=== PATIENT | male | born 1945 | race Caucasian/White ===

== ENCOUNTER 2017-05-20 14:23 | Inpatient (IN) | payer MEDICARE ==
[~2017-05-20] VITALS: Ht 162.6 cm; Wt 72.6 kg
[2017-05-20 14:28] VITALS: BP 142/74
--- NOTE | 2017-05-20 14:30 | NUR ---
PT AMBULATED TO BED 11.
--- NOTE | 2017-05-20 14:34 | NUR ---
72M BIB FAMILY C/O RT UPPER QUADRANT ABDOMINAL PAIN, THROBBING, RADIATES TO LEFT UPPER QUADRANT, 10/10 X TODAY; ABDOMEN SOFT, ROUND, NON-TENDER, ACTIVE BOWEL SOUNDS X 4 QUADRANTS; PT STATES NO N/V/D AT THIS TIME; PT AA&OX4, PERRLA, BL LUNG SOUNDS CLEAR, RR EVEN/UNLABORED, SKIN IS WARM/DRY/INTACT AT THIS TIME; STEADY GAIT; PT RESTING IN BED WITH HOB ELEVATED AND IN LOWEST POSITION; POSITIONED FOR COMFORT; ER MD MADE AWARE OF STATUS. WILL CONTINUE TO MONITOR.
[2017-05-20] MEDS ORDERED: ONDANSETRON 4 MG/2 ML VIAL IVP ONE (14:40)
[2017-05-20] MEDS ORDERED: NACL 0.9% 1,000 ML IV ONE (14:40)
[2017-05-20] MEDS ORDERED: HYDROmorphone 1 MG/ML AMP IVP ONE (14:40)
--- NOTE | 2017-05-20 14:47 | NUR ---
US AT BEDSIDE.
[2017-05-20 15:45] LABS: BASOPHILS # (AUTO) 0.1 K/uL (0.00-0.22); BASOPHILS % (AUTO) 1.7 % (0.0-2.0); EOSINOPHILS # (AUTO) 0.3 K/uL (0-0.4); EOSINOPHILS % (AUTO) 5.2 % (0.0-4.0); HEMATOCRIT 37.6 % (36-52); HEMOGLOBIN 12.1 g/dL (12.0-18.0); LYMPHOCYTES # (AUTO) 0.3 K/uL (2.0-11.5); LYMPHOCYTES % (AUTO) 6.2 % (20.5-51.1); MEAN CORPUSCULAR HEMOGLOBIN 29 pg (27-31); MEAN CORPUSCULAR HGB CONC 32 g/dL (33-37); MEAN CORPUSCULAR VOLUME 89 fL (80-94); MONOCYTES # (AUTO) 0.5 K/uL (0.8-1.0); MONOCYTES % (AUTO) 9.9 % (1.7-9.3); NEUTROPHILS # (AUTO) 4.1 K/uL (1.8-7.7); PLATELET COUNT (AUTO) 146 K/uL (140-450); RED BLOOD CELL COUNT(AUTO) 4.22 MIL/uL (4.20-6.10); RED CELL DISTRIBUTION WIDTH 12.2 % (11.6-13.7); WHITE BLOOD COUNT (AUTO) 5.3 K/uL (4.8-10.8)
[2017-05-20 15:48] LABS: APPEARANCE,URINE CLEAR (CLEAR); BILIRUBIN,URINE NEGATIVE (NEGATIVE); BLOOD, URINE NEGATIVE (NEGATIVE); COLOR,URINE YELLOW (YELLOW); LEUKOCYTE ESTERASE ,URINE NEGATIVE (NEGATIVE); NITRITE, URINE NEGATIVE (NEGATIVE); PH,URINE 7.5 (5.0-9.0); UGLUCOSE NEGATIVE (NEGATIVE)
[2017-05-20 16:01] LABS: ANION GAP 10.5 (8-16); ASPARTATE AMINOTRANSFERASE 32 U/L (15-37); CARBON DIOXIDE 28.2 mmol/L (21-32); CHLORIDE 109 mmol/L (98-107); GLUCOSE 111 mg/dL (74-106); LIPASE 126 U/L (73-393); POTASSIUM 3.7 mmol/L (3.5-5.1); SODIUM SERUM 144 mmol/L (136-145); TOTAL BILIRUBIN 0.3 mg/dL (0.0-1.0); UREA NITROGEN, BLOOD 14 mg/dL (7-18)
--- NOTE | 2017-05-20 16:10 | NUR ---
PT APPEARS TO BE RESTING COMFORTABLY IN BED; RR EVEN/UNLABORED; AT BEDSIDE; POSITIONED FOR COMFORT; WILL CONTINUE TO MONITOR.
[2017-05-20] MEDS ORDERED: ONDANSETRON 4 MG/2 ML VIAL IVP PRN (17:25)
[2017-05-20] MEDS ORDERED: ACETAMINOPHEN 325 MG TAB PO PRN (17:25)
--- NOTE | 2017-05-20 18:24 | NUR ---
CALLED TO GIVE REPORT; YARIEL SOTO WILL CALL BACK IN 5 MINUTES.
--- NOTE | 2017-05-20 18:37 | NUR ---
REPORT GIVEN TO MALU SALDIVAR; ASKED TO BRING PT DOWN TO FLOOR IN 5 MINUTES WHILE SHE OPENS THE PT'S BED.
--- NOTE | 2017-05-20 18:42 | NUR ---
Patient will be admitted to care of DR. ELDRIDGE. Admited to MED-SURG. Will go to room 106A. Belongings list completed. Report to YARIEL TORIBIO.
[2017-05-20 18:50] VITALS: BP 161/70
--- NOTE | 2017-05-20 18:50 | NUR ---
RECEIVED PT FROM ER, PER DAI, ASSISTED BY ER STAFF. PT AWAKE. ALERT ORIENTEDX4. NO SOB NOTED. DENIES ANY PAIN OR DISCOMFORT AT THIS TIME. PT AMBULATORY. SAFETY PRECAUTION IN PLACE. CALL LIGHT WITHIN REACH. WILL ENDORSE TO NEXT SHIFT, PT ON STABLE CONDITION, FOR CONTINUITY OF CARE.
[2017-05-20 19:15] VITALS: BP 157/91
--- NOTE | 2017-05-20 19:15 | NUR ---
ADMITTED A 72M FROM ER. REPORT GIVEN BY EFREN . AWAKE. ALERT AND ORIENTED X4, SPEAKS BOTH MALAGASY AND SOME MOHAWK. ON MED SURG. ADMITTED DUE TO RUQ ABDOMINAL PAIN THAT STARTS EARLY TODAY. DENIES ANY PAIN AT THIS TIME. SKIN ASSESSMENT DONE . SKIN INTACT. WITH IV ACCESS ON THE LT AC#20. NPO STATUS . PT VERBALIZED UNDERSTANDING. AMBULATORY . ORIENTED TO HOSPITAL ROUTINES. CALL LIGHT AND URINAL PLACED WITHIN EASY REACH. INSTRUCTED TO CALL IF NEED ANY ASSISTANCE. WILL CONTINUE TO MONITOR.
[2017-05-20] MEDS: DEXT 5% /NACL 0.9% 1,000 ML IV SCH (19:17)
--- NOTE | 2017-05-20 20:30 | NUR ---
FAMILY TO BRING TOMORROW MEDICATIONS THAT PT IS TAKING AT HOME.
[2017-05-20] MEDS ORDERED: cefTRIAXone 1,000 MG VIAL ONE (20:44)
--- NOTE | 2017-05-20 22:50 | NUR ---
DR. HALEY CALLED REGARDING CONSULT FOR SURGERY. PT AGREED TO HAVE THE SURGERY TOMORROW AT 0730 . PT'S ALSO AWARE PT ABLE TO TALKED TO HER ABOUT THE PLAN SURGERY .
[2017-05-20] MEDS ORDERED: BICA50TA2 PO (23:30)
[2017-05-20 23:58] VITALS: BP 147/72
[2017-05-21] MEDS: MORPHINE SULFATE 2 MG/ML SYR IVP PRN ×2 (00:01→02:59)
--- NOTE | 2017-05-21 00:10 | NUR ---
PT KEPT NPO FOR SURGERY IN AM. PT VERBALIZED UNDERSTANDING.
--- NOTE | 2017-05-21 02:00 | NUR ---
MADE ROUNDS. AWAKE, STILL WITH SLIGHT DISCOMFORT/PAIN. BUT CAN WAIT TILL PAIN MED DUE.
--- NOTE | 2017-05-21 02:51 | NUR ---
PAGED DR. ELDRIDGE,DR. RAMAN TRAFFIC INVESTIGATOR. CALLED BACK. OK TO GIVE PAIN MEDICINE NOW THEN STILL KEEP Q4HRS PRN AFTER .
[2017-05-21 02:56] VITALS: BP 176/96
--- NOTE | 2017-05-21 04:15 | NUR ---
PAGED AGAIN DR. RAMAN FOR PT SAID HIS PAIN IS 8/10 . BP IS ELEVATED 182/86. WILL WAIT FOR CALL BACK.
--- NOTE | 2017-05-21 04:45 | NUR ---
DR. RAMAN CALLED BACK WITH NEW ORDER FOR SEVERE PAIN.
[2017-05-21] MEDS: HYDROmorphone 1 MG/ML AMP IVP PRN ×3 (04:57→20:40)
[2017-05-21] MEDS: DEXT 5% /NACL 0.9% 1,000 ML IV SCH (06:14)
[2017-05-21] MEDS ORDERED: cloNIDine 0.1 MG TAB PO PRN (06:15)
--- NOTE | 2017-05-21 06:16 | NUR ---
BP STILL ELEVATED AT 194/81, HR 66. PAGED DR. RAMAN AGAIN. CALLED BACK WITH NEW ORDERS.
[2017-05-21] MEDS ORDERED: cloNIDine 0.1 MG TAB ONE (06:28)
[2017-05-21] MEDS: DEXT 5% / NACL 0.45% 1,000 ML IV SCH (06:29)
--- NOTE | 2017-05-21 06:32 | NUR ---
PAGED DR. HALEY. CALLED BACK AND MADE AWARE OF THE THE BP ELEVATED AND WILL GET CLONIDINE O.I MG PO PER DR. RAMAN. HE SAID OK. TO CONTROL BP FIRST.
[2017-05-21 06:52] LABS: BASOPHILS # (AUTO) 0.1 K/uL (0.00-0.22); BASOPHILS % (AUTO) 0.7 % (0.0-2.0); EOSINOPHILS # (AUTO) 0.2 K/uL (0-0.4); EOSINOPHILS % (AUTO) 2.4 % (0.0-4.0); HEMATOCRIT 40.2 % (36-52); HEMOGLOBIN 13.3 g/dL (12.0-18.0); LYMPHOCYTES # (AUTO) 0.5 K/uL (2.0-11.5); LYMPHOCYTES % (AUTO) 6.6 % (20.5-51.1); MEAN CORPUSCULAR HEMOGLOBIN 30 pg (27-31); MEAN CORPUSCULAR HGB CONC 33 g/dL (33-37); MEAN CORPUSCULAR VOLUME 89 fL (80-94); MONOCYTES # (AUTO) 0.6 K/uL (0.8-1.0); MONOCYTES % (AUTO) 7.8 % (1.7-9.3); NEUTROPHILS # (AUTO) 6.3 K/uL (1.8-7.7); NEUTROPHILS % (AUTO) 82.5 % (42.2-75.2); PLATELET COUNT (AUTO) 156 K/uL (140-450); RED BLOOD CELL COUNT(AUTO) 4.51 MIL/uL (4.20-6.10); RED CELL DISTRIBUTION WIDTH 12.4 % (11.6-13.7); WHITE BLOOD COUNT (AUTO) 7.7 K/uL (4.8-10.8)
[2017-05-21 07:00] LABS: ALBUMIN 3.2 g/dL (3.4-5.0); ANION GAP 12.5 (8-16); ASPARTATE AMINOTRANSFERASE 38 U/L (15-37); CARBON DIOXIDE 27.8 mmol/L (21-32); CHLORIDE 107 mmol/L (98-107); CREATININE 0.9 mg/dL (0.7-1.3); GLUCOSE 168 mg/dL (74-106); MAGNESIUM 1.7 mg/dL (1.8-2.4); PHOSPHORUS 2.4 mg/dL (2.5-4.9); POTASSIUM 3.3 mmol/L (3.5-5.1); SODIUM SERUM 144 mmol/L (136-145); TOTAL BILIRUBIN 0.6 mg/dL (0.0-1.0); UREA NITROGEN, BLOOD 8 mg/dL (7-18)
--- NOTE | 2017-05-21 07:00 | NUR ---
TALKED TO ALEJANDRA FROM SURGERY . MADE HIM AWARE THAT PT BP IS ELEVATED AND DR. HALEY AWARE AND HE SAID TO CONTROL BP FIRST.
--- NOTE | 2017-05-21 07:15 | NUR ---
ENDORSED PT IN FAIR CONDITION TO AM NURSE.
--- NOTE | 2017-05-21 07:20 | NUR ---
RECEIVED PT REPORT AT BEDSIDE FROM NIGHT NURSE. PT IS AAOX4 AND SHOWS NO S/S OF ACUTE DISTRESS ON RA. PT IS AROUSABLE TO NAME AND DENIES SOB AND PAIN. PT SKIN IS INTACT. PT ON TELE MONITOR. IV NOTED ON THE LT AC PATENT AND INTACT WITH IVF'S INFUSING WELL. PT WAS EXPLAINED POC FOR TODAY AND VERBALIZE UNDERSTANDING. THE BED IS IN LOW POSITION WITH CALL LIGHT WITHIN REACH. ALL NEED'S MET AT THIS TIME. WILL CONTINUE TO MONITOR.
[2017-05-21 07:21] LABS: PROTHROMBIN TIME 10.6 secs (10.8-13.4)
--- NOTE | 2017-05-21 07:30 | NUR ---
PT BP IS 160/70 HR 69 DENIES PAIN AND SOB. WILL NOTIFY DR HALEY STABLE BP.
--- NOTE | 2017-05-21 07:40 | NUR ---
OH AWARE OF STABLE BP AND NOTIFIED DR OF NOTED "ANEURYSMAL DILATATION NOTED OF THE DISTAL ABDOMINAL AORTA MEASURING APPROXIMATELY 2.9 CM IN DIAMETER" FROM ABD/PELVIS CT WITH CONTRAST AND ABD US IMPRESSION. IS AWARE.
[2017-05-21] MEDS ORDERED: SUCCINYLCHOLINE CHLORIDE 200 MG/10 ML VIAL IVP ONE (07:46)
[2017-05-21] MEDS ORDERED: DESFLURANE 240 ML BTL INH ONE (07:46)
[2017-05-21] MEDS ORDERED: ONDANSETRON 4 MG/2 ML VIAL ONE (07:46)
[2017-05-21] MEDS ORDERED: ROCURONIUM 50 MG/5 ML VIAL IV ONE (07:46)
[2017-05-21] MEDS ORDERED: PROPOFOL 200 MG/20 ML VIAL IV ONE (07:46)
[2017-05-21] MEDS ORDERED: ePHEDrine 50 MG/ML VIAL ONE (07:46)
--- NOTE | 2017-05-21 07:50 | NUR ---
PT LEFT UNIT TO PROCEDURE IN STABLE CONDITION.
[2017-05-21 08:00] VITALS: BP 160/70
[2017-05-21] MEDS ORDERED: fentaNYL 0.05 MG/ML VIAL ONE (08:02)
[2017-05-21] MEDS: BUPIVACAINE-MPF 0.25% 30 ML VIAL INJ ONE ×2 (08:03→09:45)
[2017-05-21] MEDS: ENOXAPARIN 30 MG/0.3 ML SYR SUBQ SCH (08:13)
--- NOTE | 2017-05-21 08:30 | NUR ---
DR ELDRIDGE ON UNIT AND WAS NOTIFIED OF POTASSIUM OF 3.4 AND MAGNESIUM OF 1.7. STATED Addendum: 05/21/17 at 1542 by Jaclyn Bunn RN DR ELDRIDGE ON UNIT AND WAS NOTIFIED OF POTASSIUM OF 3.3 AND MAGNESIUM OF 1.7. STATED, "PT WILL BE IN PROCEDURE AND WILL HAVE ELECTROLYTES REPLENISHED THERE." NO NEW ORDERS.
[2017-05-21] MEDS ORDERED: ONDANSETRON 4 MG/2 ML VIAL IVP PRN (08:35)
[2017-05-21] MEDS ORDERED: HYDROmorphone 1 MG/ML AMP IVP PRN (08:35)
--- NOTE | 2017-05-21 08:42 | NUR ---
PATIENT HAS BEEN SCREENED AND CATEGORIZED MODERATE NUTRITION RISK. PATIENT WILL BE SEEN WITHIN 3-5 DAYS OF ADMISSION. 05/23/17-05/25/[address]
[2017-05-21] MEDS ORDERED: LISI10TA11 PO (08:51)
[2017-05-21] MEDS ORDERED: SIMV20TA1 PO (08:52)
[2017-05-21] MEDS: HYDROmorphone PFS 2 MG/ML SYR ONE ×2 (09:51→10:02)
--- NOTE | 2017-05-21 10:35 | NUR ---
PT ARRIVED ON UNIT. PT STATES MILD PAIN, " ME DUELE POQUITO". PT AMB TO RESTROOM WITH STEADY GAIT. PT IS NOW IN BED AND SHOWS NO S/S OF ACUTE DISTRESS ON ROOM AIR. NOTED 3 BANDAGES CLEAN DRY AND INTACT WITH 4 X4 GAUZES SECURES WITH TAPE AT EMILIE DRAIN SITE ONLY 5CC OF SANGUINOUS DRAINAGE IN EMILIE DRAIN. IVF'S INFUSING WELL AT IV SITE. THE BED IN LOW POSITION WITH CALL LIGHT WITHIN REACH. WILL CONTINUE TO MONITOR.
--- NOTE | 2017-05-21 11:08 | NUR ---
CM NOTE INITIAL REVIEW FAXED TO [facility] (FAX# [phone]) AND [facility] (FAX# [phone], ATTN: MAHIN #[phone] [id number])
--- NOTE | 2017-05-21 11:30 | NUR ---
PT SLEEPING AND EASILY AROUSABLE. PT DENIES PAIN AT THIS TIME. IS AT BEDSIDE.
[2017-05-21 12:00] VITALS: BP 132/63
--- NOTE | 2017-05-21 12:15 | NUR ---
PT SLEEPING AND SHOWS NO S/S OF ACUTE DISTRESS ON ROOM AIR. WILL CONTINUE TO MONITOR.
--- NOTE | 2017-05-21 14:00 | NUR ---
PT IS AAOX4 AND SHOWS NO S/S OF ACUTE DISTRESS ON ROOM AIR. PT DENIES PAIN AND SOB. THE BED IS IN LOW POSITION WITH CALL LIGHT WITHIN REACH. ALL OF PATIENT'S NEEDS ARE MET AT THIS TIME. WILL CONTINUE TO MONITOR.
--- NOTE | 2017-05-21 15:30 | NUR ---
PT IS RESTING COMFORTABLY AND DENIES PAIN AND SOB. ALL OF PT'S NEEDS MET AT THIS TIME. PT'S IS AT BEDSIDE.
[2017-05-21 16:00] VITALS: BP 154/68
--- NOTE | 2017-05-21 16:20 | NUR ---
PT C/O 7/10 ABD PAIN AT INCISION SITES. ADMINISTERED DILAUDID 1MG IVP. WILL REASSESS IN 30 MIN.
--- NOTE | 2017-05-21 17:30 | NUR ---
PT IS SITTING UP COMFORTABLY AND EATING DINNER. PT TOLERATING DIET SO FAR.
--- NOTE | 2017-05-21 19:15 | NUR ---
GAVE REPORT AT BEDSIDE TO NIGHT NURSE PT ENDORSED IN STABLE CONDITION.
--- NOTE | 2017-05-21 19:25 | NUR ---
RECEIVED PT IN STABLE CONDITION FROM AM NURSE. AWAKE,ALERT AND ORIENTED X4. ON TELE-SR. S/P LAP LOIS WITH X3 LARGE BAND AIDS WITH SMALL DRAINAGE AND RT LOWER DRESSING WITH J GRIGGS DRAINING TO A SEROSANGUINEOUS FLUIDS. PT DENIES ANY PAIN AT THIS TIME. FAMILY MEMBERS AT BEDSIDE. IVF INFUSING WELL ON THE LT AC#20. ENCOURAGED PT TO DO SOME DEEP BREATHING AND COUGHING EXERCISES. DEMONSTRATED WELL. CALL LIGHT AND URINAL PLACED WITHIN EASY REACH. WILL CONTINUE TO MONITOR.
[2017-05-21 19:45] VITALS: BP 146/75
--- NOTE | 2017-05-21 22:10 | NUR ---
PAGED DR. ELDRIDGE, DR. RAMAN GEOPOLITICS TEACHER . CALLED BACK AND SHE SAID OK TO CONTINUE ZESTRIL AND ZOCOR .
[2017-05-21] MEDS ORDERED: LISINOPRIL 10 MG TAB PO SCH (22:17)
[2017-05-21] MEDS ORDERED: SIMVASTATIN 20 MG TAB PO SCH (22:19)
--- NOTE | 2017-05-21 23:00 | NUR ---
PT SLEEPING WELL. NO S/S OF ANY DISCOMFORT OR PAIN NOTED . WILL CONTINUE TO MONITOR.
[2017-05-22 00:04] VITALS: BP 137/68
[2017-05-22] MEDS: DEXT 5% / NACL 0.45% 1,000 ML IV SCH (02:20)
--- NOTE | 2017-05-22 02:45 | NUR ---
MADE ROUNDS. AWAKE. VOIDED WELL. WITH NO C/O ANY DISCOMFORT NOR PAIN NOTED. WILL CONTINUE TO MONITOR.
[2017-05-22 03:31] VITALS: BP 146/76
[2017-05-22] MEDS: HYDROmorphone 1 MG/ML AMP IVP PRN (03:53)
--- NOTE | 2017-05-22 06:30 | NUR ---
Emily GRIGGS OUTPUT 10ML. WILL ENDORSE TO AM NURSE.
[2017-05-22 06:43] LABS: BASOPHILS # (AUTO) 0.1 K/uL (0.00-0.22); BASOPHILS % (AUTO) 0.9 % (0.0-2.0); EOSINOPHILS % (AUTO) 0.5 % (0.0-4.0); HEMATOCRIT 35.5 % (36-52); HEMOGLOBIN 11.9 g/dL (12.0-18.0); LYMPHOCYTES # (AUTO) 0.5 K/uL (2.0-11.5); LYMPHOCYTES % (AUTO) 6.8 % (20.5-51.1); MEAN CORPUSCULAR HEMOGLOBIN 30 pg (27-31); MEAN CORPUSCULAR HGB CONC 33 g/dL (33-37); MEAN CORPUSCULAR VOLUME 89 fL (80-94); MONOCYTES # (AUTO) 0.7 K/uL (0.8-1.0); MONOCYTES % (AUTO) 9.4 % (1.7-9.3); NEUTROPHILS # (AUTO) 6.7 K/uL (1.8-7.7); NEUTROPHILS % (AUTO) 82.4 % (42.2-75.2); PLATELET COUNT (AUTO) 146 K/uL (140-450); RED CELL DISTRIBUTION WIDTH 12.4 % (11.6-13.7)
[2017-05-22 07:11] LABS: ALBUMIN 2.8 g/dL (3.4-5.0); ANION GAP 8.7 (8-16); ASPARTATE AMINOTRANSFERASE 51 U/L (15-37); CARBON DIOXIDE 31.1 mmol/L (21-32); CHLORIDE 104 mmol/L (98-107); GLUCOSE 115 mg/dL (74-106); POTASSIUM 3.8 mmol/L (3.5-5.1); SODIUM SERUM 140 mmol/L (136-145); TOTAL BILIRUBIN 0.4 mg/dL (0.0-1.0); UREA NITROGEN, BLOOD 12 mg/dL (7-18)
--- NOTE | 2017-05-22 07:15 | NUR ---
ENDORSED PT IN STABLE CONDITION TO AM NURSE.
--- NOTE | 2017-05-22 07:16 | NUR ---
RECEIVED REPORT FROM SLICE PLUG CUTTER OPERATOR NURSE. PATIENT IN STABLE CONDITION, NO DISTRESS NOTED. DENIES ANY PAIN. DENIES ANY NAUSEA/VOMITING. RESPIRATIONS EVEN, UNLABORED, ON ROOM AIR. AAOX4, CALM, COOPERATIVE, SKIN COLOR APPROPRIATE TO ETHNICITY, WARM TO TOUCH. PATIENT IS S/P CHOLECYSTECTOMY, HAS RIGHT ABD EMILIE DRAINAGE WITH 1 ML SERSANGUINOUS DRAINAGE AT THIS TIME. EMILIE DRAINAGE DRESSING IS DRY AND INTACT. HAS 3 OTHER MICROSCOPIC INCISIONAL WOUNDS ON ABD AREA FROM CHOLECYSTECTOMY PROCEDURE. IV IS INTACT, PATENT, AND INFUSING IVF PER ORDERS. LUNGS CTA ALL LOBES. REVIEWED PLAN OF CARE WITH PATIENT. PATIENT VERBALIZED UNDERSTANDING. SAFETY MEASURES IN PLACE, CALL LIGHT WITHIN REACH, FALL PRECAUTIONS IN PLACE PER PROTOCOL. WILL CONTINUE TO MONITOR.
[2017-05-22 08:00] VITALS: BP 146/59
[2017-05-22] MEDS ORDERED: ACET-8386 PO (08:06)
[2017-05-22] MEDS ORDERED: LISINOPRIL 10 MG TAB PO SCH (09:00)
--- NOTE | 2017-05-22 09:10 | NUR ---
PATIENT SITTING AT BEDSIDE TALKING WITH . NO DISTRESS NOTED. DENIES ANY PAIN. DENIES ANY NAUSEA/VOMITING CONDITION UNCHANGED. MEDICATIONS DUE GIVEN. SAFETY MEASURES IN PLACE, CALL LIGHT WITHIN REACH. WILL CONTINUE TO MONITOR.
[2017-05-22] MEDS: ENOXAPARIN 30 MG/0.3 ML SYR SUBQ SCH (09:23)
--- NOTE | 2017-05-22 09:30 | NUR ---
PATIENT SITTING IN BED TALKING WITH . NO DISTRESS NOTED. DENIES ANY PAIN. CONDITION UNCHANGED. MEDICATIONS DUE GIVEN. PATIENT BEING DISCHARGED HOME TODAY PER DR. JAZMYN STARKS TO D/C. AWAITING FOR DR. HALEY TO [place] FOR D/C HOME. EMILIE DRAINAGE INTACT, PATENT WITH SEROSANGUINOUS DRAINAGE. OTHER 3 S/P LAP LOIS WOUNDS BANDAID IS DRY AND INTACT. SAFETY MEASURES IN PLACE, CALL LIGHT WITHIN REACH. WILL CONTINUE TO MONITOR.
--- NOTE | 2017-05-22 10:30 | NUR ---
DR. HALEY AT BEDSIDE REVIEWING PLAN OF CARE WITH PATIENT. DR. HALEY VERBAL ORDERS RECEIVED TO D/C EMILIE DRAINAGE AND OK FOR PATIENT TO GO HOME WITH FOLLOW-UP WITH DR. HALEY WITHIN 1 WEEK. REMOVED EMILIE DRAINAGE. PATIENT TOLERATED PROCEDURE WELL. SAFETY MEASURES IN PLACE, CALL LIGHT WITHIN REACH. WILL CONTINUE TO MONITOR.
--- NOTE | 2017-05-22 11:00 | NUR ---
PATIENT SITTING IN BED WITH AT BEDSIDE. NO DISTRESS NOTED. CONDITION UNCHANGED. EMILIE GRIGGS DRAINAGE REMOVED PER DR. HALEY ORDERS. 10 ML O SERSANGUINOUS DRAINAGE IN EMILIE GRIGGS UPON REMOVAL. PATIENT TOLERATED PROCEDURE WELL. WILL CONTINUE TO MONITOR.
--- NOTE | 2017-05-22 11:26 | NUR ---
Clinical review faxed to [facility] at [phone]
--- NOTE | 2017-05-22 11:30 | NUR ---
PATIENT SITTING IN BED WITH AT BEDSIDE. NO DISTRESS NOTED, DENIES ANY PAIN. CONDITION UNCHANGED. PATIENT AWARE OF BEING DISCHARGED HOME. DISCHARGE INSTRUCTIONS/EDUCATION PROVIDED, FOLLOW-UP VISITS, NEW MEDICATION REGIMEN, AND DIET REGIMEN WITH FAMILY MEMBER TRANSLATION PER PATIENT REQUEST. ANSWERED ALL QUESTIONS FROM PATIENT/FAMILY. PATIENT/FAMILY VERBALIZED UNDERSTANDING. PRESCRIPTIONS WITH PATIENT. ALL BELONGINGS WITH PATIENT. IV REMOVED WITH MINIMAL BLOOD AND LUMEN COMPLETELY INTACT. ID BANDS REMOVED. FAM[facility] MEMBER [facility] HOME VIA PRIVATE VEHICLE. PATIENT REFUSED WHEELCHAIR UPON DISCHARGE. ABLE TO AMBULATE INDEPENDENTLY WITH STEADY GAIT. PATIENT DISCHARGED HOME VIA PRIVATE VEHICLE IN STABLE CONDITION AT 11:30
[2017-05-22] MEDS ORDERED: SIMVASTATIN 20 MG TAB PO SCH (21:00)
== END 2017-05-22 11:30 | disposition home or self-care (01) | DRG 418 ==
LOC: MED 14:23 → MTU 17:36
PROVIDERS: ADMIT Hospitalist; ATTEND Hospitalist
PROC: 0FT44ZZ Resection of Gallbladder, Percutaneous Endoscopic Approach (ICD-10-PCS; principal; 2017-05-21 07:30)
DX: K80.12 Calculus of gallbladder with acute and chronic cholecystitis without obstruction (principal); E44.1 Mild protein-calorie malnutrition; E78.00 Pure hypercholesterolemia, unspecified; I10 Essential (primary) hypertension; Z68.27 Body mass index [BMI] 27.0-27.9, adult; Z79.899 Other long term (current) drug therapy
CPT/HCPCS: 36415; 71010; 76700; 80053; 81003; 83605; 83690; 83735; 84100; 85025; 85610; 86886; 86900; 86901; 87040; 87081; 88304; 93005; 96361; 96374; 96375; 99285; J0330; J0696; J1170; J1650; J2270; J2405; J2704; J3010; J3490; J7030; J7042; J7060; Q0092; Q9967

== ENCOUNTER 2017-07-12 07:55 | Inpatient (IN) | payer MEDICARE ==
[~2017-07-12] VITALS: Ht 162.6 cm; Wt 72.6 kg
[~2017-07-12 07:55] MED LIST: ACET-8386 PO; BICA50TA2 PO; LISI10TA11 PO; SIMV20TA1 PO
--- NOTE | 2017-07-12 08:05 | NUR ---
Patient transferred to bed 11. RN evaluating patient at bedside.
--- NOTE | 2017-07-12 08:10 | NUR ---
blood collected and handed to orthodontic lab technician----pt placed on monitor--md notified
[2017-07-12] MEDS ORDERED: ONDANSETRON 4 MG/2 ML VIAL IVP ONE (08:25)
[2017-07-12] MEDS ORDERED: MORPHINE SULFATE 4 MG/ML SYR IVP ONE (08:25)
[2017-07-12] MEDS ORDERED: NACL 0.9% 1,000 ML IV ONE (08:25)
--- NOTE | 2017-07-12 08:30 | NUR ---
cxr at bedside
[2017-07-12] MEDS ORDERED: MORPHINE SULFATE 4 MG/ML SYR ONE (08:35)
[2017-07-12] MEDS ORDERED: ONDANSETRON 4 MG/2 ML VIAL ONE (08:35)
--- NOTE | 2017-07-12 08:35 | NUR ---
pt signed consent for ct scan
[2017-07-12] MEDS ORDERED: fentaNYL 0.05 MG/ML VIAL IVP ONE (09:00)
[2017-07-12] MEDS ORDERED: fentaNYL 0.05 MG/ML VIAL ONE (09:07)
[2017-07-12] MEDS ORDERED: LORazepam 2 MG/ML VIAL IVP ONE (09:20)
[2017-07-12 09:46] LABS: ALBUMIN 3.8 g/dL (3.4-5.0); ANION GAP 20.3 (8-16); ASPARTATE AMINOTRANSFERASE 462 U/L (15-37); CARBON DIOXIDE 22.4 mmol/L (21-32); CHLORIDE 102 mmol/L (98-107); CREATININE 1.4 mg/dL (0.7-1.3); GLUCOSE 223 mg/dL (74-106); SODIUM SERUM 142 mmol/L (136-145); TOTAL BILIRUBIN 1.5 mg/dL (0.0-1.0); UREA NITROGEN, BLOOD 14 mg/dL (7-18)
[2017-07-12 09:52] LABS: POTASSIUM 2.7 mmol/L (3.5-5.1)
[2017-07-12 09:54] LABS: LIPASE 16391 U/L (73-393)
--- NOTE | 2017-07-12 09:58 | NUR ---
PATIENT TAKEN TO CTSCAN
--- NOTE | 2017-07-12 09:59 | NUR ---
REPORT GIVEN TO YARIEL GREEN
[2017-07-12 10:00] LABS: PROTHROMBIN TIME 10.1 secs (10.8-13.4)
[2017-07-12 10:11] LABS: HEMATOCRIT 42.7 % (36-52); HEMOGLOBIN 13.8 g/dL (12.0-18.0); MEAN CORPUSCULAR HEMOGLOBIN 29 pg (27-31); MEAN CORPUSCULAR HGB CONC 32 g/dL (33-37); MEAN CORPUSCULAR VOLUME 88 fL (80-94); PLATELET COUNT (AUTO) 155 K/uL (140-450); RED BLOOD CELL COUNT(AUTO) 4.84 MIL/uL (4.20-6.10); RED CELL DISTRIBUTION WIDTH 13.2 % (11.6-13.7); WHITE BLOOD COUNT (AUTO) 12.5 K/uL (4.8-10.8)
[2017-07-12] MEDS ORDERED: KCL 20 MEQ/WATER INJ PREMIX 200 ML IV ONE (10:45)
[2017-07-12 10:48] LABS: BASOPHILS % (MANUAL) 0 % (0-2); EOSINOPHILS % (MANUAL) 0 % (0-4); LYMPHOCYTES % (MANUAL) 5 % (20-46); MONOCYTES % (MANUAL) 7 % (5-12)
--- NOTE | 2017-07-12 11:09 | NUR ---
Dr. Arauz re-evaluating patient at bedside.
[2017-07-12] MEDS ORDERED: HYDROmorphone PFS 2 MG/ML SYR IVP ONE (11:15)
[2017-07-12] MEDS ORDERED: PIPERACILLIN/TAZOBACTAM 4.5 GM in DEXTROSE 5% 100 ML IV ONE (11:30)
--- NOTE | 2017-07-12 11:36 | NUR ---
1 MG DILAUDID WAS WASTED IN THE PHARMACEUTICAL BIN;
[2017-07-12] MEDS ORDERED: POTASSIUM CHL 20 MEQ/D5-1/2NS 1,000 ML IV ONE (11:55)
[2017-07-12] MEDS ORDERED: NACL 0.9% 2,000 ML IV ONE (11:55)
[2017-07-12 12:01] LABS: BILIRUBIN,URINE NEGATIVE (NEGATIVE); BLOOD, URINE NEGATIVE (NEGATIVE); COLOR,URINE YELLOW (YELLOW); LEUKOCYTE ESTERASE ,URINE NEGATIVE (NEGATIVE); NITRITE, URINE NEGATIVE (NEGATIVE); UGLUCOSE 1+ (NEGATIVE)
[2017-07-12 12:07] LABS: APPEARANCE,URINE SLIGHTLY HAZY (CLEAR)
[2017-07-12] MEDS ORDERED: LABETALOL 100 MG/20 ML VIAL IVP ONE (12:10)
[2017-07-12 12:29] LABS: RBC,URINE NONE SEEN /HPF (0-5); WBC,URINE NONE SEEN /HPF (0-5)
[2017-07-12] MEDS ORDERED: PIPERACILLIN/TAZOBACTAM 2.25 GM VIAL IV ONE (12:32)
--- NOTE | 2017-07-12 13:33 | NUR ---
PT'S BP OF 211/105;WA -83;O2 SAT OF 98% AT 2LPM VIA NC;ER NOTIFIED;VERBAL ORDER OF 10 MG LABETALOL IVP;
--- NOTE | 2017-07-12 13:39 | NUR ---
LABETALOL 10 MG IVP GIVEN AT AROUND 1337
[2017-07-12] MEDS ORDERED: NACL 0.9% 1,000 ML IV SCH (14:37)
[2017-07-12] MEDS ORDERED: ONDANSETRON 4 MG/2 ML VIAL IVP PRN (14:40)
--- NOTE | 2017-07-12 14:50 | NUR ---
SPOKE TO CHARGE NURSE JAG & DR.SHIN MENDEZ OF BP 195/95.OK TO ADMIT TO THE FLOOR.
--- NOTE | 2017-07-12 15:30 | NUR ---
REPORT RECIEVED FROM SEPARATOR TENDER NORMA AT BEDSIDE, PT SLEEPING QUIELTY IN NAD ON 2L NC O2, PT AROUSES EASILY OX4, INITIAL ASSESSMENT DONE, AT BEDSIDE, PT ORIENTED TO ROOM AND FLOOR, PLAN OF CARE REVIEWED, CALL MARES WITHIN REACH, SIDE RAILS UP, BED LOCKED IN LOW POSITION.
--- NOTE | 2017-07-12 15:30 | NUR ---
Patient will be admitted to care of DR DENIS. Admited to TELE. Will go to room 107 B. Belongings list completed. Report to 107 B.
[2017-07-12 15:45] VITALS: BP 184/94
--- NOTE | 2017-07-12 15:45 | NUR ---
Heather lebron in ED - 07/12/17 at 1545 by JESÚS Patient will be admitted to care of DR DENIS. Admited to TELE. Will go to room 107 B. [facility] list completed. Report to 107 B.
[2017-07-12] MEDS: MORPHINE SULFATE 2 MG/ML SYR IVP PRN ×2 (15:47→20:17)
[2017-07-12] MEDS: hydrALAZINE 20 MG/ML VIAL IVP PRN (15:47)
--- NOTE | 2017-07-12 15:50 | NUR ---
PRN HYDRALAZINE GIVEN 10MG IV FOR BP 184/94, PT ALSO MEIDCATED FOR ABD PAIN 4-11/12.
[2017-07-12] MEDS ORDERED: LABETALOL 100 MG/20 ML VIAL IV ONE (16:15)
[2017-07-12] MEDS: BLOOD GLUCOSE MONITORING 1 DEV DEV FS SCH ×2 (16:30→20:26)
[2017-07-12 16:48] VITALS: BP 168/83
[2017-07-12] MEDS: DEXT 5% /NACL 0.9% 1,000 ML IV SCH (17:33)
[2017-07-12] MEDS: INSULIN LISPRO SLIDING SCALE 100 UNITS/ML VIAL SUBQ PRN ×2 (17:51→20:32)
--- NOTE | 2017-07-12 17:54 | NUR ---
PT SLEEPING QUIETLY IN NAD RESP EVEN UNLABORED, SKIN WARM DRY COLOR WNL, 6 UNITS INSULIN GIVEN SQ FOR BS 282, AT BEDSIDE, WILL CONTINUE TO MONITOR.
--- NOTE | 2017-07-12 19:30 | NUR ---
REPORT GIVEN TO ONCOMING SHIFT NURSE, PT INSTABLE CONDITION SLEEPING AT THIS TIME.
--- NOTE | 2017-07-12 19:33 | NUR ---
RECEIVED HANDOFF REPORT FROM AM RN. PATIENT A&O4. PATIENT STATES PAIN, WILL MEDICATE ORDERED. PATIENT IV SITE PATENT AND INTACT. NO SIGNS OR SYMPTOMS OF ACUTE DISTRESS NOTED. SAFETY MEASURES ENSURED. CALL LIGHT WITHIN REACH. FAMILY AT BEDSIDE WILL CONTINUE TO MONITOR.
[2017-07-12 20:00] VITALS: BP 158/89
[2017-07-12] MEDS: METOPROLOL 25 MG TAB PO SCH (20:21)
--- NOTE | 2017-07-12 20:25 | NUR ---
PM MEDS GIVEN WITH EDUCATION. PATIENT VERBALIZED UNDERSTANDING. FAMILY AT BEDSIDE. NO SIGNS OR SYMPTOMS OF ACUTE DISTRESS NOTED. CALL LIGHT WITHIN REACH. WILL CONTINUE TO MONITOR.
--- NOTE | 2017-07-12 21:15 | NUR ---
ULTRASOUND IN TO SEE PATIENT.
[2017-07-12] MEDS: MORPHINE SULFATE 4 MG/ML SYR IVP PRN (23:22)
[2017-07-13] VITALS: BP 163/97
--- NOTE | 2017-07-13 01:46 | NUR ---
PATIENT RESTING IN BED. PATIENT DENIES PAIN. PATIENT STATES WANTING WATER DUE TO DRYNESS OF THE MOUTH. PATIENT IS NPO STATUS, EDUCATION PROVIDED. PATIENT VERBALIZED UNDERSTANDING.
[2017-07-13 04:00] VITALS: BP 159/92
[2017-07-13] MEDS: DEXT 5% /NACL 0.9% 1,000 ML IV SCH (06:09)
[2017-07-13] MEDS: BLOOD GLUCOSE MONITORING 1 DEV DEV FS SCH ×4 (06:29→20:42)
[2017-07-13] MEDS: MORPHINE SULFATE 4 MG/ML SYR IVP PRN (06:29)
[2017-07-13] MEDS: INSULIN LISPRO SLIDING SCALE 100 UNITS/ML VIAL SUBQ PRN ×4 (06:30→20:16)
[2017-07-13 06:53] LABS: HEMATOCRIT 45.9 % (36-52); HEMOGLOBIN 14.9 g/dL (12.0-18.0); MEAN CORPUSCULAR HEMOGLOBIN 29 pg (27-31); MEAN CORPUSCULAR HGB CONC 33 g/dL (33-37); MEAN CORPUSCULAR VOLUME 87 fL (80-94); PLATELET COUNT (AUTO) 168 K/uL (140-450); RED BLOOD CELL COUNT(AUTO) 5.25 MIL/uL (4.20-6.10); RED CELL DISTRIBUTION WIDTH 13.2 % (11.6-13.7); WHITE BLOOD COUNT (AUTO) 12.9 K/uL (4.8-10.8)
--- NOTE | 2017-07-13 07:15 | NUR ---
RECEIVED PATIENT REPORT AT BEDSIDE FROM NIGHTSHIFT NURSE. PATIENT IS ASLEEP BUT AROUSABLE. PATIENT AAOX4. PATIENT DOES NOT SHOW ANY SIGNS OF PAIN AT THIS TIME. LAST PAIN MED GIVEN WAS AT 0630. PATIENT RESPIRATIONS ARE EVEN AND UNLABORED. NO SIGNS OF RESPIRATORY DEPRESSION. PATIENT CALL LIGHT WITHIN REACH. INSTRUCTED PATIENT TO CALL IF HE NEEDS ANYTHING. PATIENT IS IN STABLE CONDITION. WILL CONTINUE TO MONITOR PATIENT.
[2017-07-13 07:23] LABS: ALBUMIN 2.9 g/dL (3.4-5.0); ASPARTATE AMINOTRANSFERASE 687 U/L (15-37); CARBON DIOXIDE 24.3 mmol/L (21-32); CHLORIDE 109 mmol/L (98-107); CREATININE 1.1 mg/dL (0.7-1.3); GLUCOSE 289 mg/dL (74-106); POTASSIUM 4.3 mmol/L (3.5-5.1); SODIUM SERUM 144 mmol/L (136-145); TOTAL BILIRUBIN 2.4 mg/dL (0.0-1.0); UREA NITROGEN, BLOOD 14 mg/dL (7-18)
--- NOTE | 2017-07-13 07:24 | NUR ---
ENDORSED PLAN OF CARE TO AM RN. PATIENT IN STABLE CONDITION.
[2017-07-13 07:58] VITALS: BP 139/74
[2017-07-13 08:13] LABS: LYMPHOCYTES % (MANUAL) 5 % (20-46); MONOCYTES % (MANUAL) 6 % (5-12)
[2017-07-13] MEDS: METOPROLOL 25 MG TAB PO SCH ×2 (08:41→20:12)
[2017-07-13] MEDS: LISINOPRIL 10 MG TAB PO SCH (08:42)
[2017-07-13] MEDS: SIMVASTATIN 20 MG TAB PO SCH (08:42)
--- NOTE | 2017-07-13 08:42 | NUR ---
PATIENT HAS BEEN SCREENED AND CATEGORIZED MODERATE NUTRITION RISK. PATIENT WILL BE SEEN IN 3-5 DAYS. 07/16/[address]
[2017-07-13] MEDS ORDERED: BICALUTAMIDE 50 MG TAB PO SCH (09:00)
[2017-07-13] MEDS: MORPHINE SULFATE 2 MG/ML SYR IVP PRN (11:26)
[2017-07-13 12:04] VITALS: BP 147/84
--- NOTE | 2017-07-13 13:56 | NUR ---
CM NOTE PER IRON ERECTOR DEB, SEND REVIEWS TO [facility] AND [facility]. INITIAL REVIEW FAXED TO [facility] [phone] ID PH# [phone] EXT [phone] AND TO [facility] [phone] PH# [phone] DOC EXT [id number].
--- NOTE | 2017-07-13 14:00 | NUR ---
PATIENT SEEN BY DR PHAN
[2017-07-13] MEDS ORDERED: POTASSIUM CHLORIDE 20 MEQ in LACTATED RINGERS 1,000 ML IV SCH (14:45)
[2017-07-13 16:00] VITALS: BP 154/91
[2017-07-13] MEDS: LACTATED RINGERS 1,000 ML IV SCH (16:00)
[2017-07-13] MEDS: PIPER/TAZO 3.375GM/D5W PREMIX 50 ML IV SCH ×2 (18:30→23:42)
--- NOTE | 2017-07-13 19:25 | NUR ---
PATIENT REPORT GIVEN AT BEDSIDE. PATIENT ENDORSED IN STABLE CONDITION
--- NOTE | 2017-07-13 19:30 | NUR ---
RECEIVED PT AWAKE TALKING TO ON BEDSIDE, VITAL SIGNS TAKEN, ST ON TELE, DENIES CHEST PAIN, TOLERABLE ABDOMINAL PAIN AT THIS TIME, ENCOURAGE TO CALL IF PAIN GET WORST, MAINTAIN ON NPO, IVF INFUSING WELL, PLAN OF CARE DISCUSS, FOR EGD/ERCP TOMORROW AM, CALL LIGHT WITHIN REACH.
[2017-07-13 20:00] VITALS: BP 144/80
--- NOTE | 2017-07-13 20:30 | NUR ---
BLOOD SUGAR CHECKED WITH 205 RESULT, COVERAGE GIVEN, DUE MEDS ADMINISTERED, ALL NEEDS ATTENDED.
[2017-07-13] MEDS: HYDROmorphone PFS 2 MG/ML SYR IVP PRN (21:05)
--- NOTE | 2017-07-13 22:35 | NUR ---
PT SLEEPING, NO SIGNS OF DISTRESS, REPORT GIVEN TO YARIEL WANG FOR CONTINUITY OF CARE.
--- NOTE | 2017-07-13 22:36 | NUR ---
RECEIVED HANDOFF REPORT FROM ADOLFO SALDIVAR. PATIENT RESTING IN BED. NO SIGNS OR SYMPTOMS OF ACUTE DISTRESS NOTED. CALL LIGHT WITHIN REACH. WILL CONTINUE TO MONITOR.
[2017-07-14] VITALS (8 sets, daily range): BP systolic 117–173; BP diastolic 63–84
--- NOTE | 2017-07-14 01:21 | NUR ---
PATIENT RESTING IN BED. NO SIGNS OR SYMPTOMS OF ACUTE DISTRESS NOTED. SAFETY MEASURES ENSURED. WILL CONTINUE TO MONITOR.
[2017-07-14] MEDS: LACTATED RINGERS 1,000 ML IV SCH ×3 (02:00→23:47)
[2017-07-14] MEDS: HYDROmorphone PFS 2 MG/ML SYR IVP PRN ×2 (04:10→17:15)
[2017-07-14] MEDS: PIPER/TAZO 3.375GM/D5W PREMIX 50 ML IV SCH ×4 (06:05→23:47)
[2017-07-14] MEDS: BLOOD GLUCOSE MONITORING 1 DEV DEV FS SCH ×4 (06:31→21:27)
--- NOTE | 2017-07-14 07:20 | NUR ---
ENDORSED PLAN OF CARE TO AM RN. PATIENT IN STABLE CONDITION.
--- NOTE | 2017-07-14 07:30 | NUR ---
RECEIVED BEDSIDE REPORT FROM SURFACE SUPERVISOR RN. PATIENT IS SLEEPING EASILY AROUSED, OX4. PATIENT STATES ABD PAIN 3/10, TOLERABLE AT THIS TIME. IV NOTED TO THE LEFT AC #20, LEAKING. IV DC'ED. TIP INTACT, PRESSURE APPLIED. IV NOTED TO THE RIGHT AC #20, PATENT AND INTACT. NO S/S OF ACUTE DISTRESS NOTED. SAFETY MEASURES ENSURED. CALL LIGHT WITHIN REACH. FAMILY AT BEDSIDE WILL CONTINUE TO MONITOR.
[2017-07-14 08:49] LABS: ALBUMIN 2.3 g/dL (3.4-5.0); ANION GAP 15.1 (8-16); ASPARTATE AMINOTRANSFERASE 253 U/L (15-37); CARBON DIOXIDE 21.6 mmol/L (21-32); CHLORIDE 113 mmol/L (98-107); CREATININE 1.2 mg/dL (0.7-1.3); GLUCOSE 260 mg/dL (74-106); POTASSIUM 3.7 mmol/L (3.5-5.1); SODIUM SERUM 146 mmol/L (136-145); TOTAL BILIRUBIN 1.8 mg/dL (0.0-1.0); UREA NITROGEN, BLOOD 21 mg/dL (7-18)
[2017-07-14 09:09] LABS: HEMATOCRIT 42.1 % (36-52); HEMOGLOBIN 13.6 g/dL (12.0-18.0); MEAN CORPUSCULAR HEMOGLOBIN 28 pg (27-31); MEAN CORPUSCULAR HGB CONC 32 g/dL (33-37); MEAN CORPUSCULAR VOLUME 87 fL (80-94); PLATELET COUNT (AUTO) 106 K/uL (140-450); RED BLOOD CELL COUNT(AUTO) 4.83 MIL/uL (4.20-6.10); RED CELL DISTRIBUTION WIDTH 13.7 % (11.6-13.7); WHITE BLOOD COUNT (AUTO) 16.1 K/uL (4.8-10.8)
[2017-07-14] MEDS: SIMVASTATIN 20 MG TAB PO SCH (09:25)
[2017-07-14] MEDS: LISINOPRIL 10 MG TAB PO SCH (09:25)
[2017-07-14] MEDS: METOPROLOL 25 MG TAB PO SCH ×2 (09:30→21:38)
[2017-07-14 10:18] LABS: LYMPHOCYTES % (MANUAL) 4 % (20-46); MONOCYTES % (MANUAL) 3 % (5-12)
--- NOTE | 2017-07-14 10:30 | NUR ---
DR PHAN WAS HERE TO SEE THE PT.
[2017-07-14 10:42] LABS: LIPASE 4066 U/L (73-393)
--- NOTE | 2017-07-14 11:22 | NUR ---
CM NOTE CONCURRENT REVIEW FAXED TO [facility] [phone] OR PH# [phone] EXT [phone] AND TO [facility] [phone] PH# [phone] DOC EXT [id number].
[2017-07-14] MEDS ORDERED: KCL 20 MEQ/WATER INJ PREMIX 100 ML IV ONE (12:05)
[2017-07-14] MEDS ORDERED: BISACODYL 10 MG SUPP RC PRN (12:10)
[2017-07-14] MEDS: INSULIN LISPRO SLIDING SCALE 100 UNITS/ML VIAL SUBQ PRN ×3 (12:39→21:43)
[2017-07-14] MEDS ORDERED: NACL 0.9% IV SCH (13:00)
[2017-07-14] MEDS ORDERED: POTASSIUM CHLORIDE IV SCH (13:00)
--- NOTE | 2017-07-14 14:00 | NUR ---
PT LEFT UNIT TO OR FOR EGD/ERCP. PT IS IN STABLE CONDITION. IV ON LEFT HAND #22 RUNNING POTASSIUM. LEFT AC #22 RUNNING LR. BOTH IV SITE ARE INTACT AND INFUSING WELL. NO INFILTRATION.
[2017-07-14] MEDS ORDERED: GLUCAGON 1 MG VIAL ONE (14:13)
[2017-07-14] MEDS ORDERED: PROPOFOL 200 MG/20 ML VIAL IV ONE (14:13)
[2017-07-14] MEDS ORDERED: BLOOD GLUCOSE MONITORING 1 DEV DEV FS SCH (14:54)
[2017-07-14] MEDS ORDERED: HYDROmorphone PFS 2 MG/ML SYR IVP PRN (14:55)
[2017-07-14] MEDS ORDERED: ONDANSETRON 4 MG/2 ML VIAL IVP PRN (14:55)
[2017-07-14] MEDS ORDERED: MAGNESIUM HYDROXIDE 2400 MG/30 ML UDC PO SCH (15:57)
[2017-07-14] MEDS ORDERED: BISACODYL 10 MG SUPP RC SCH (15:57)
--- NOTE | 2017-07-14 16:00 | NUR ---
PT WAS TRANSFERRED FROM OR TO ICU. REPORT GIVEN TO ICU NURSE HIWOT AT BEDSIDE.
--- NOTE | 2017-07-14 16:30 | NUR ---
RECEIVE PT FROM OR HE IS AWAKE AND ALERT SKIN DRY WARM TO TOUCH AND INTACT. ON O2 AT 3L N/C O2 SAT 92 IV FLUID # 20 ON RT AC AND # 22 ON RT FA INFUSE LR AT 100ML/HR.ABDOMINAL ROUND AND FIRM B/S HYPO ACTIVE.. HE MOVE ALL EXTREMITIES. HAD N-J TUBE TO RT NARES. PT IS NPO AT THE TIME. Addendum: 07/14/17 at 1845 by Lindsay Eastman RN PTIV FLUID IS ON THE LEFT ARM.
--- NOTE | 2017-07-14 17:15 | NUR ---
C/O PAIN IN LOWER ABDOMEN ,MEDICATION GIVEN ORDERED.
--- NOTE | 2017-07-14 17:40 | NUR ---
HAVE SMAOO AMNOUT OF SOFT YELLOW BM AFTER DULCOLAX SUPPOSTSITORY
--- NOTE | 2017-07-14 17:50 | NUR ---
PT AT BED SIDE PT. RESTING QUIETLY.
--- NOTE | 2017-07-14 18:34 | NUR ---
DR. PHAN NOTIFIED OF B RESULTS. OK TO START TUBE FEEDING.
--- NOTE | 2017-07-14 18:41 | NUR ---
GUIDEWIRE FROM [place] TUBE REMOVED WITHOUT ANY DIFF.
--- NOTE | 2017-07-14 18:45 | NUR ---
PT FEEL LIKE TO HAVE BM . BE OREILLY IN SERTED FOF HIM.
--- NOTE | 2017-07-14 19:50 | NUR ---
RECEIVED REPORT FROM YARIEL MI. PT GCS 15. BILATERAL PERRLA NOTED. DENIES PAIN. DENIES SOB. LUNGS CLEAR ON AUSCULTATION. EQUAL, UNLABORED BILATERAL BREATH NOTED. SR ON ON MONITOR. VITALS WITHIN NORMAL. SKIN INTACT. ABLE TO MOVE ALL EXTREMITIES WITH EQUAL STRENGTH. PULSE PRESENT X 4 EXTREMITIES. L AC 20 GAUGE INTACT AND PATENT. LEFT HAND 22 GAUGE INTACT AND PATENT. PT REPORTED DISCOMFORT WHEN FLUSH WAS GIVEN. PT REMOVED IV BY SELF. IV CANNULA INTACT. ABDOMEN FIRM WITH MILD TENDERNESS. BOWEL SOUND PRESENT X 4 QUADRANT. FALL AND SAFETY PRECAUTION MAINTAINED. NO S/SX OF ACUTE DISTRESS NOTED. BED AT LOWEST SETTING. CALL LIGHT WITHIN REACH. WILL CONTINUE TO MONITOR. Addendum: 07/14/17 at 2302 by Harsh Small RN NJ TUBE NOTED. POSITIVE PLACEMENT CHECKED. WILL START TUBE FEEDING ORDERED.
--- NOTE | 2017-07-14 20:00 | NUR ---
PER FOOD AND NUTRITION STAFF, FEEDING ORDERED BY DR. PHAN NOT AVAILABLE AT THIS TIME, EQUIVALENT ALSO NOT AVAILABLE AT THIS TIME. TEXTILE COLORIST FORMULATOR RECOMMENDATION RECEIVED. DR. PHAN PAGED. AWAITING PAGED BACK FOR CHANGE IN ORDER. UNABLE TO GIVE FEEDING AT THIS TIME.
--- NOTE | 2017-07-14 20:34 | NUR ---
PRIMARY MD ON CALLED PAGED, D/T NO CALL BACK FROM DR. PHAN. WILL AWAIT CALL.
--- NOTE | 2017-07-14 20:36 | NUR ---
PER DR. NAGEL, WILL START TESTER ELECTRONIC SCALE'S RECOMMENDATION UNTIL FURTHER ORDER.
--- NOTE | 2017-07-14 21:00 | NUR ---
ASSISTED PT OFF BED OREILLY. MODERATE AMOUNT OF DIARRHEA NOTED. WILL HOLD MEDICATION FOR NOW. ARIELLE CARE GIVEN. PT TOLERATED WELL. PT REQUESTED TO BE PLACED ON BED OREILLY AGAIN FOLLOWING ARIELLE CARE. STATED HE THINKS HE HAS TO HAVE ANOTHER BOWEL MOVEMENT. PED OREILLY REPLACED. WILL CONTINUE TO MONITOR.
--- NOTE | 2017-07-14 21:25 | NUR ---
FEEDING TUBE STARTED ORDERED. PLACEMENT CHECKED. 0 RESIDUAL NOTED. WILL CONTINUE TO MONITOR.
--- NOTE | 2017-07-14 21:45 | NUR ---
MEDICATION ADMINISTERED ORDERED. TOLERATED WELL. 0 RESIDUAL NOTED IN FEEDING TUBE. WILL CONTINUE TO MONITOR.
--- NOTE | 2017-07-14 22:30 | NUR ---
PT RESTING IN BED. NO S/SX OF ACUTE DISTRESS NOTED.
--- NOTE | 2017-07-14 22:53 | NUR ---
BED OREILLY PLACED REQUESTED. PT HAD SMALL AMOUNT OF LOOSE BM. ARIELLE CARE GIVEN ORDERED. TOLERATED WELL.
--- NOTE | 2017-07-14 23:20 | NUR ---
PT DENIES PAIN OR DISCOMFORT, STATED HE'S GOING TO TRY TO SLEEP.
[2017-07-15] VITALS (8 sets, daily range): BP systolic 134–153; BP diastolic 61–83
--- NOTE | 2017-07-15 | NUR ---
PT SLEEPING IN BED. NO S/SX OF ACUTE DISTRESS NOTED. WILL CONTINUE TO MONITOR.
--- NOTE | 2017-07-15 | NUR ---
PT SLEEPING IN BED. NO S/SX OF ACUTE DISTRESS NOTED. CONTINUE IV DRIPS ORDERED. RASS -3. VITALS WITHIN NORMAL. Addendum: 07/15/17 at 0230 by Harsh Small RN NOTE PLACED FOR WRONG PATIENT.
--- NOTE | 2017-07-15 01:00 | NUR ---
PT GCS 15. DENIES PAIN OR DISCOMFORT. WILL CONTINUE TO MONITOR.
--- NOTE | 2017-07-15 02:26 | NUR ---
PT C/O 7/10 ABDOMINAL PAIN. PAIN MEDICATION ADMINISTERED ORDERED. TOLERATED WELL.
[2017-07-15] MEDS: HYDROmorphone PFS 2 MG/ML SYR IVP PRN ×5 (02:27→21:18)
--- NOTE | 2017-07-15 03:00 | NUR ---
PT SLEEPING COMFORTABLY IN BED. FLACC 0. VITALS WITHIN NORMAL.
[2017-07-15] MEDS: BLOOD GLUCOSE MONITORING 1 DEV DEV FS SCH ×4 (07:30→20:38)
--- NOTE | 2017-07-15 07:30 | NUR ---
RECEIVED PT FROM ASHLIE RN, PT AWAKE, ALERT. ABLE TO FOLLOW COMMANDS. BEDSIDE MONITOR SHOWS SR, ON O2 NC 4L/MIN, NO S/S OF RESPIRATORY DISTRESS NOTED. NG TUBE IN PLACE RUNNING ISOSOURCE AT 20 ML/HR, NO RESIDUAL, PT ABLE TO MOVE ALL HIS EXTREMITIES, CALL LIGHT IN REACH,WILL CONTINUE TO MONITOR.
[2017-07-15] MEDS: LACTATED RINGERS 1,000 ML IV SCH ×2 (08:00→20:48)
[2017-07-15] MEDS: amLODIPine 5 MG TAB PO SCH (09:00)
[2017-07-15] MEDS: METOPROLOL 25 MG TAB PO SCH ×2 (09:00→20:29)
--- NOTE | 2017-07-15 10:00 | NUR ---
DUE MEDS GIVEN. PT TOLERATED WELL
[2017-07-15 10:53] LABS: ANION GAP 10.7 (8-16); ASPARTATE AMINOTRANSFERASE 137 U/L (15-37); CARBON DIOXIDE 26.2 mmol/L (21-32); CHLORIDE 115 mmol/L (98-107); CREATININE 1.1 mg/dL (0.7-1.3); GLUCOSE 220 mg/dL (74-106); MAGNESIUM 2.1 mg/dL (1.8-2.4); PHOSPHORUS 2.7 mg/dL (2.5-4.9); POTASSIUM 3.9 mmol/L (3.5-5.1); SODIUM SERUM 148 mmol/L (136-145); TOTAL BILIRUBIN 1.6 mg/dL (0.0-1.0); UREA NITROGEN, BLOOD 22 mg/dL (7-18)
[2017-07-15] MEDS: PIPER/TAZO 3.375GM/D5W PREMIX 50 ML IV SCH ×3 (12:56→17:53)
--- NOTE | 2017-07-15 14:20 | NUR ---
ACCOMPANIED PT TO CHEST CT.
--- NOTE | 2017-07-15 14:39 | NUR ---
CM NOTE COMPUTER AND PHONE LINES WERE DOWN. WRITTEN CLINICAL UPDATE FAXED TO [facility] [phone] [place] PH# [phone] EXT [id number] AND TO [facility] [phone] PH# [phone] DOC EXT [id number].
--- NOTE | 2017-07-15 14:45 | NUR ---
PT BACK TO ICU
[2017-07-15 15:57] LABS: HEMATOCRIT 37.3 % (36-52); HEMOGLOBIN 11.8 g/dL (12.0-18.0); MEAN CORPUSCULAR HEMOGLOBIN 28 pg (27-31); MEAN CORPUSCULAR HGB CONC 32 g/dL (33-37); MEAN CORPUSCULAR VOLUME 88 fL (80-94); PLATELET COUNT (AUTO) 152 K/uL (140-450); RED BLOOD CELL COUNT(AUTO) 4.24 MIL/uL (4.20-6.10); RED CELL DISTRIBUTION WIDTH 13.9 % (11.6-13.7); WHITE BLOOD COUNT (AUTO) 15.1 K/uL (4.8-10.8)
--- NOTE | 2017-07-15 16:00 | NUR ---
IN TO SEE PT, PT , CHANGE TUBE FEEDING TO DIABETISOURCE AC AT 40 MLS/HR, WILL CARRY OUT.
[2017-07-15 16:07] LABS: LYMPHOCYTES % (MANUAL) 9 % (20-46); MONOCYTES % (MANUAL) 6 % (5-12)
[2017-07-15] MEDS ORDERED: HYDROmorphone PFS 2 MG/ML SYR ONE (17:07)
--- NOTE | 2017-07-15 18:16 | NUR ---
PT HAVING DINNER AT THIS TIME. FAMILY AT BEDSIDE.
[2017-07-15] MEDS: INSULIN LISPRO SLIDING SCALE 100 UNITS/ML VIAL SUBQ PRN ×2 (18:21→20:35)
--- NOTE | 2017-07-15 19:15 | NUR ---
RECEIVED REPORT FROM RN AT BEDSIDE.
--- NOTE | 2017-07-15 19:20 | NUR ---
ASSESSMENT DONE. PATIENT IS AWAKE, ALERT AND ORIENTED, VERBALLY RESPONSIVE, ABLE TO MAKE NEEDS KNOWN. DENIES PAIN AT THIS TIME. SKIN WARM AND DRY TO TOUCH. RESPIRATIONS EVEN AND UNLABORED. O2 @ 2LPM VIA NASAL CANNULA. NGT IN PLACE, AUSCULTATED POSITIVE PLACEMENT WITH FEEDING OF ISOSOURCE @ 40 ML/HR, NO RESIDUAL ASPIRATED. LUNG SOUNDS EQUAL BILATERALLY. PERIPHERAL PULSES PALPABLE. ABLE TO MOVE ALL EXTREMITIES. SAFETY PRECAUTIONS IN PLACE, CALL LIGHT WITHIN REACH, BED ON LOW POSITION, BED RAILS X 3. WILL CONTINUE TO MONITOR.
--- NOTE | 2017-07-15 20:00 | NUR ---
V/S: 98.3, 114, 20, 153/83, 93% O2 SATURATION WITH O2 @ 2LPM VIA NASAL CANNULA. NO APPARENT PHYSICAL DISTRESS.
[2017-07-15] MEDS ORDERED: ACETAMINOPHEN 650 MG/20.3 ML UDC ONE (20:17)
[2017-07-15] MEDS ORDERED: ACETAMINOPHEN 325 MG TAB ONE (20:23)
[2017-07-15] MEDS: ACETAMINOPHEN 325 MG TAB PO PRN (20:24)
--- NOTE | 2017-07-15 20:24 | NUR ---
PATIENT COMPLAIN OF PAIN 4/10 TO ABDOMEN. MEDICATED WITH TYLENOL 650 MG ORDERED. WILL CONTINUE TO MONITOR.
[2017-07-15] MEDS ORDERED: METOPROLOL 25 MG TAB ONE (20:27)
[2017-07-15] MEDS ORDERED: HYDROmorphone 1 MG/ML AMP ONE (21:14)
--- NOTE | 2017-07-15 21:18 | NUR ---
PATIENT COMPLAIN OF ABDOMINAL PAIN 8/10, NOTED WITH GUARDED MOVEMENTS AND FACIAL GRIMACING, RUBBING ABDOMEN. GIVEN PRN DILAUDID 1 MG IVP ORDERED. WILL CONTINUE TO MONITOR.
[2017-07-16] VITALS: BP 151/82
[2017-07-16] MEDS ORDERED: HYDROmorphone PFS 2 MG/ML SYR ONE ×2 (00:02→04:11)
[2017-07-16] MEDS: HYDROmorphone PFS 2 MG/ML SYR IVP PRN ×4 (00:03→16:45)
--- NOTE | 2017-07-16 00:03 | NUR ---
V/S: 98.3, 95, 13, 151/82, 95% O2 SATURATION WITH O2 @ 2LPM VIA NASAL CANNULA. PATIENT COMPLAIN OF ABDOMINAL PAIN 12/13. MEDICATED WITH DILAUDID .5 MG IVP ORDERED. WILL CONTINUE TO MONITOR.
[2017-07-16] MEDS: PIPER/TAZO 3.375GM/D5W PREMIX 50 ML IV SCH ×5 (00:06→23:10)
[2017-07-16] MEDS ORDERED: ACETAMINOPHEN 325 MG TAB ONE (03:31)
[2017-07-16] MEDS: ACETAMINOPHEN 325 MG TAB PO PRN (03:35)
[2017-07-16 04:00] VITALS: BP 147/81
--- NOTE | 2017-07-16 04:15 | NUR ---
PATIENT CONTINUE TO COMPLAIN OF ABDOMINAL PAIN 03/15. NOTED GRIMACING, GRASPING SITE, GUARDED MOVEMENTS. MEDICATED WITH DILAUDID 1 MG IVP ORDERED.
--- NOTE | 2017-07-16 04:51 | NUR ---
ASSISTED PATIENT WITH MORNING CARE, SPONGE BATH IN BED, TURNS SELF FROM SIDE TO SIDE, CHANGED LINENS AND GOWN. KEPT COMFORTABLE. REFUSES ORAL CARE AT THIS TIME.
[2017-07-16] MEDS ORDERED: hydrALAZINE 20 MG/ML VIAL ONE (06:07)
[2017-07-16] MEDS ORDERED: BISACODYL 10 MG SUPP RC ONE (06:07)
[2017-07-16 06:10] LABS: ANION GAP 9.6 (8-16); CARBON DIOXIDE 28.2 mmol/L (21-32); CHLORIDE 114 mmol/L (98-107); GLUCOSE 281 mg/dL (74-106); POTASSIUM 3.8 mmol/L (3.5-5.1); SODIUM SERUM 148 mmol/L (136-145); UREA NITROGEN, BLOOD 18 mg/dL (7-18)
[2017-07-16 06:11] LABS: HEMATOCRIT 35.8 % (36-52); HEMOGLOBIN 11.5 g/dL (12.0-18.0); MEAN CORPUSCULAR HEMOGLOBIN 28 pg (27-31); MEAN CORPUSCULAR HGB CONC 32 g/dL (33-37); MEAN CORPUSCULAR VOLUME 89 fL (80-94); PLATELET COUNT (AUTO) 175 K/uL (140-450); RED BLOOD CELL COUNT(AUTO) 4.04 MIL/uL (4.20-6.10); RED CELL DISTRIBUTION WIDTH 13.3 % (11.6-13.7); WHITE BLOOD COUNT (AUTO) 13.9 K/uL (4.8-10.8)
[2017-07-16] MEDS: hydrALAZINE 20 MG/ML VIAL IVP PRN ×3 (06:12→07:43)
--- NOTE | 2017-07-16 06:12 | NUR ---
BP: 178/78, HR 98. DENIES ANY PAIN AT THIS TIME. MEDICATED WITH HYDRALAZINE 10 MG IVP ORDERED FOR SBP >160. WILL REASSESS.
--- NOTE | 2017-07-16 06:15 | NUR ---
PATIENT STATES HE HAS ABDOMINAL DISCOMFORT, HE WANTS TO GO POOP. OFFERED PRN DULCOLAX SUPPOSITORY, AND AGREED. ADMINISTERED DULCOLAX SUPPOSITORY PER RECTUM ORDERED. WILL CONTINUE TO MONITOR FOR RESULT.
[2017-07-16 06:18] LABS: ASPARTATE AMINOTRANSFERASE 57 U/L (15-37); TOTAL BILIRUBIN 1.3 mg/dL (0.0-1.0)
[2017-07-16] MEDS: BLOOD GLUCOSE MONITORING 1 DEV DEV FS SCH ×4 (06:57→20:28)
[2017-07-16 07:00] LABS: EOSINOPHILS % (MANUAL) 1 % (0-4); LYMPHOCYTES % (MANUAL) 6 % (20-46); MONOCYTES % (MANUAL) 8 % (5-12)
--- NOTE | 2017-07-16 07:05 | NUR ---
ENDORSED CARE TO RYAN RN AT BEDSIDE FOR CONTINUITY OF CARE.
[2017-07-16] MEDS ORDERED: HYDROmorphone 1 MG/ML AMP ONE (07:33)
--- NOTE | 2017-07-16 07:33 | NUR ---
C/O PAIN IN ABDOMEN 7/10 HR UP TO 110/MIN B/P 153/62
[2017-07-16 08:00] VITALS: BP 153/62
--- NOTE | 2017-07-16 08:05 | NUR ---
TRANSFER TO 105B REPORT GIVE TO APRYL AT BED SIDE.
--- NOTE | 2017-07-16 08:40 | NUR ---
PT BROUGHT IN FROM ICU IN BED, PT AWAKE ALERT, RESP EVEN UNLABORED ON 2L NC O2, SKIN WARM DRY COLOR WNL, PT WITH NJ TUBE FEED 40ML/HR, IVF INFUSING WELL, SITE ARIEL, KYLEE IN PLACE Addendum: 07/16/17 at 0904 by Kelly Murillo RN INITIAL ASSESSMENT DONE, PLAN OF CARE REVIEWED, PT ORIENTED TO ROOM AND FLOOR, CALL MARES WITHIN REACH, SIDE RAILS UP, WILL CONTINUE TO MONITOR.
[2017-07-16] MEDS: INSULIN LISPRO SLIDING SCALE 100 UNITS/ML VIAL SUBQ PRN ×4 (09:13→20:29)
[2017-07-16] MEDS: amLODIPine 5 MG TAB PO SCH (09:15)
[2017-07-16] MEDS: METOPROLOL 25 MG TAB PO SCH ×2 (09:15→20:30)
[2017-07-16] MEDS: PANTOPRAZOLE 40 MG INJ VIAL IVP SCH (09:15)
--- NOTE | 2017-07-16 11:43 | NUR ---
PHYSICAL THERAPY AT BEDSIDE.
[2017-07-16 11:54] VITALS: BP 128/76
[2017-07-16] MEDS ORDERED: HYDROcodone/APAP 10/325 MG 1 TAB TAB PO SCH (13:00)
--- NOTE | 2017-07-16 13:02 | NUR ---
PT UP TO BATHROOM WITH STEADY GAIT, REPORTS LOOSE STOOL, PT C/O 7-8/10M PAIN , NORCO GIVEN SCHEDULED, WILL CONTINUE TO TERRI, FAMILY AT BEDSIDE, NJ FEEDING ONGOING AT 60ML/HR.
[2017-07-16] MEDS ORDERED: HYDROmorphone PFS 2 MG/ML SYR IVP PRN (13:15)
--- NOTE | 2017-07-16 14:24 | NUR ---
CM NOTE CONCURRENT REVIEW FAXED TO [facility] [phone] [place] PH# [phone] EXT [phone] AND TO [facility] [phone] PH# [phone] DOC EXT [id number].
--- NOTE | 2017-07-16 14:58 | NUR ---
07/16/2017 RD INITIAL ASSESSMENT COMPLETED PLEASE REFER TO NUTRITION ASSESSMENT UNDER CARE ACTIVITY FOR ESTIMATED NUTRITIONAL NEEDS. CURRENT ENTERAL FEEDS IS PROVIDING 1152 KCALS AND 58 GM PRO/DAY TO MEET 64% EST KCAL AND 79% EST PRO NEEDS/DAY TOLERATED, MAY CONSIDER: DIABETISOURCE AC @ 60 ML/HR THIS WILL PROVIDE 1728 KCALS AND 86 GM PRO/DAY, TO MEET 95% EST KCAL AND 100% EST PRO NEEDS/DAY RD TO FOLLOW-UP IN 2-3 DAYS PATIENT IS HIGH RISK. MAX VELIZ RD Addendum: 07/16/17 at [address] SPOKE WITH RN, STATED PT C/O DIARRHEA. PT MAY BENEFIT FROM PEPTAMEN AF, INSTEAD OF DIABETISOURCE AC. THIS IS A PEPTIDE BASED FORMULA AND HAS LESS FIBER, MAY IMPROVE TUBE FEED TOLERANCE.
[2017-07-16 16:00] VITALS: BP 132/88
--- NOTE | 2017-07-16 16:02 | NUR ---
PT SLEEPING QUIETLY IN NAD, RESP EVEN UNLABORED, SKIN WARM DRY COLOR WNL, PT AROUSES EASILY, PT APPEARS COMFORTABLE, PT DENIES PAIN, TUBE FEEDING ON GOING AT 60ML/HR, LAUREN WELL, IVF INFUSING WELL, SITE WNL, CALL MARES WITHIN REACH, SIDE RAILS UP, WILL CONTINUE TO MONITOR.
--- NOTE | 2017-07-16 16:45 | NUR ---
AT BEDSIDE STATES PT IN PAIN, DILAUDID GIVEN AT THIS TIME.
--- NOTE | 2017-07-16 17:45 | NUR ---
DR DENIS MADE AWARE OF BREAKTHROUGH PAIN, NORCO ORDER CHANGED TO Q6HRS. PT RESTING COMFORTABLEY NOW, TUBE FEEDING CONTINUES, LAUREN WELL, WILL CONTINUE TO MONTIOR.
[2017-07-16] MEDS: HYDROcodone/APAP 10/325 MG 1 TAB TAB PO SCH ×2 (17:47→23:10)
--- NOTE | 2017-07-16 19:29 | NUR ---
REPORT GIVEN TO HAT LACER NURSE, PT IN STABLE CONDITION.
--- NOTE | 2017-07-16 19:30 | NUR ---
RECEIVED REPORT FROM DAY SHIFT NURSE. PT SLEEPING BUT AROUSES EASILY. IV TO LEFT FA#20G, LR AT 40 ML/HR, INFUSING WELL.NGT IN PLACE, AUSCULTATED POSITIVE PLACEMENT. NO RESIDUAL ASPIRATED. STARTED NEW BAG OF DIABETISOURCE AT 60 ML/HR. NO C/O PAIN. CALL LIGHT WITHIN REACH. WILL CONTINUE TO MONITOR.
[2017-07-16 20:00] VITALS: BP 138/62
[2017-07-16] MEDS ORDERED: AMITRIPTYLINE 25 MG TAB PO SCH (21:00)
[2017-07-16] MEDS: LACTATED RINGERS 1,000 ML IV SCH (21:07)
--- NOTE | 2017-07-16 21:45 | NUR ---
PT RESTING IN BED WITH EYES CLOSED, AROUSES EASILY. NO S/S OF DISTRESS. ASPIRATION PRECAUTION IN PLACE. CALL LIGHT WITHIN REACH.
--- NOTE | 2017-07-16 23:11 | NUR ---
PT C/O ABDOMINAL PAIN /10. NORCO 10/325 MG PO GIVEN SCHEDULED. ASPIRATION PRECAUTION IN PLACE. CALL LIGHT WITHIN REACH. WILL CONTINUE TO MONITOR.
[2017-07-17] VITALS: BP 144/69
--- NOTE | 2017-07-17 00:10 | NUR ---
PT SLEEPING. NO S/S OF PAIN. FEEDING TUBE INFUSING WELL. ASPIRATION PRECAUTION IN PLACE. CALL LIGHT WITHIN REACH.
[2017-07-17] MEDS: HYDROmorphone PFS 2 MG/ML SYR IVP PRN ×2 (01:06→07:42)
--- NOTE | 2017-07-17 01:07 | NUR ---
PT C/O ABDOMINAL PAIN 02/12. PT STATED THAT NORCO DIDN'T WORK. DILAUDID 1 MG GIVEN IVP. WILL CONTINUE TO MONITOR.
--- NOTE | 2017-07-17 03:30 | NUR ---
PT SLEEPING BUT WAKES EASILY. NO S/S OF PAIN OR DISCOMFORT. CALL LIGHT WITHIN REACH.
[2017-07-17 04:00] VITALS: BP 146/72
--- NOTE | 2017-07-17 04:30 | NUR ---
PT IN THE BATHROOM. FOUND NASODUODENAL TUBE, IV TUBINGS AND TELEMONITOR ON THE FLOOR, PULLED OUT BY PATIENT. ASSISTED PT BACK TO BED. NO DISTRESS NOTED..
--- NOTE | 2017-07-17 04:35 | NUR ---
PT IN BED, SEEMS CONFUSED. NO C/O PAIN. FALL PRECAUTION IN PLACE. WILL CONTINUE TO MONITOR.
--- NOTE | 2017-07-17 04:38 | NUR ---
PAGED DR. DENIS. DR. ELDRIDGE RENOVATION PLANT SUPERVISOR. WAITING FOR CALL BACK.
--- NOTE | 2017-07-17 04:45 | NUR ---
RECEIVED CALL BACK FROM DR. ELDRIDGE. MADE AWARE OF PT'S PULLED OUT IV AND NASODUODENAL TUBE. DR. ELDRIDGE ORDERED TO INSERT NGT STANDARD SIZE AND ONE ON ONE SITTER. ORDER NOTED AND CARRIED OUT.
--- NOTE | 2017-07-17 04:50 | NUR ---
INSERTED IV TO RIGHT AC #22G. GOOD FLUSH AND BLOOD RETURN. PROCEDURE TOLERATED WELL. CHARGE NURSE AND RATE CLERK PASSENGER MADE AWARE OF NGT INSERTION AND NEED FOR ONE ON ONE SITTER.
--- NOTE | 2017-07-17 05:10 | NUR ---
NGT 16F INSERTED. AUSCULTATED POSITIVE PLACEMENT. PT TOLERATED PROCEDURE WELL. NO C/O PAIN. FEEDING RESTARTED. FEEDING TOLERATED WELL.
[2017-07-17] MEDS: HYDROcodone/APAP 10/325 MG 1 TAB TAB PO SCH ×2 (05:46→11:27)
[2017-07-17] MEDS: PIPER/TAZO 3.375GM/D5W PREMIX 50 ML IV SCH ×2 (05:47→11:28)
[2017-07-17] MEDS: INSULIN LISPRO SLIDING SCALE 100 UNITS/ML VIAL SUBQ PRN ×2 (05:53→12:02)
[2017-07-17] MEDS: BLOOD GLUCOSE MONITORING 1 DEV DEV FS SCH ×2 (05:55→12:13)
--- NOTE | 2017-07-17 06:10 | NUR ---
PT ASKED FOR BEDPAN. BEDPAN GIVEN. NO BM AT THIS TIME.
--- NOTE | 2017-07-17 07:00 | NUR ---
SPOKE TO DR. PHAN OVER THE PHONE. DR. PHAN ORDERED TO D/C NGT AND PUT PT ON FULL LIQUID DIET. ORDER NOTED AND CARRIED OUT.
--- NOTE | 2017-07-17 07:10 | NUR ---
NGT REMOVED. NO C/O PAIN. ENDORSED TO DAY SHIFT NURSE FOR CONTINUITY OF CARE. PT IN STABLE CONDITION.
--- NOTE | 2017-07-17 07:22 | NUR ---
REPORT RECEIVED FROM FISHER SEAL, PT AWAKE, ALERT, RESP EVEN UNLABORED, SKIN WARM DRY COLOR WNL, NGT JUST REMOVED BY FISHER SEAL, IVF INFUSING TO RIGHT AC, SITE WNL, PT TAKING SIPS OF WATER WITHOUT PROBLEM, PLAN OF CARE REVIEWED, PT C/O ABD PAIN WILL MEDICATE. CALL MARES WITHIN REACH, SIDE RAILS UP, BED LOCKED IN LOW POSITION, WILL CONTINUE TO MONITOR.
[2017-07-17 07:33] LABS: HEMATOCRIT 36.3 % (36-52); HEMOGLOBIN 11.9 g/dL (12.0-18.0); MEAN CORPUSCULAR HEMOGLOBIN 29 pg (27-31); MEAN CORPUSCULAR HGB CONC 33 g/dL (33-37); MEAN CORPUSCULAR VOLUME 89 fL (80-94); PLATELET COUNT (AUTO) 204 K/uL (140-450); RED CELL DISTRIBUTION WIDTH 13.6 % (11.6-13.7); WHITE BLOOD COUNT (AUTO) 14.5 K/uL (4.8-10.8)
--- NOTE | 2017-07-17 07:45 | NUR ---
PT C/O SEVER PAIN IN PANIC, TURNING BACK AND FORTH, RESTLESS, GURDING ABD, MEDICATED WITH PRN DILAUDID AT THIS TIME, IVF INFUSING WELL, SITE WNL, WILL CONTINUE TO MONITOR.
[2017-07-17 08:00] VITALS: BP 140/64
[2017-07-17 08:00] LABS: ALBUMIN 1.9 g/dL (3.4-5.0); ANION GAP 10.7 (8-16); ASPARTATE AMINOTRANSFERASE 31 U/L (15-37); CARBON DIOXIDE 30.4 mmol/L (21-32); CHLORIDE 112 mmol/L (98-107); CREATININE 0.9 mg/dL (0.7-1.3); GLUCOSE 305 mg/dL (74-106); LIPASE 116 U/L (73-393); POTASSIUM 3.1 mmol/L (3.5-5.1); SODIUM SERUM 150 mmol/L (136-145); UREA NITROGEN, BLOOD 14 mg/dL (7-18)
[2017-07-17 09:27] LABS: LYMPHOCYTES % (MANUAL) 7 % (20-46); MONOCYTES % (MANUAL) 9 % (5-12)
[2017-07-17] MEDS: PANTOPRAZOLE 40 MG INJ VIAL IVP SCH (09:40)
[2017-07-17] MEDS: amLODIPine 5 MG TAB PO SCH (09:40)
[2017-07-17] MEDS: METOPROLOL 25 MG TAB PO SCH (09:41)
[2017-07-17] MEDS ORDERED: POTASSIUM CHLORIDE 10 MEQ TABER PO SCH (10:30)
--- NOTE | 2017-07-17 11:23 | NUR ---
AT BEDSIDE, PLAN FOR DC HOME, PT RESTING QUIETLY IN NAD, DENIES PAIN NOW, AWAITING HOME HEALTH PT ARRANGEMENT BY CM FOR DC HOME.
[2017-07-17 12:00] VITALS: BP 132/69
--- NOTE | 2017-07-17 12:50 | NUR ---
CM NOTE CONCURRENT REVIEW FAXED TO [facility] [phone] [place] PH# [phone] EXT [phone] AND TO [facility] [phone] PH# [phone] DOC EXT [id number]. PER [facility] [place], FAX ORDER FOR HOME HEALTH TO HER [facility] COORDINATOR FAX# [phone]. PER [facility] [place], THEY WILL ARRANGE THE HOME HEALTH AND WILL CALL TO INFORM WHICH HOME HEALTH IS GOING TO SEE THE PATIENT. I GAVE HER THE NUMBER TO THE CHARGE NURSE ON THE NURSING FLOOR WHERE PATIENT IS IN CASE SHE CALLS AT A LATER TIME TODAY. FAXED ORDER FOR HOME HEALTH TO [facility] FAX# [phone]. CHARGE NURSE JAG BATRES.
--- NOTE | 2017-07-17 14:24 | NUR ---
CM NOTE PER [facility] [place] PH# [phone] EXT [phone], [facility] IS GOING TO SEE PATIENT AND THEY ARE AWARE THAT PATIENT IS BEING DISCHARGED TODAY, AUTH# [id number]. JOSTIN SALDIVAR AWARE.
--- NOTE | 2017-07-17 15:15 | NUR ---
DC INSTRUCTION AND RX GIVEN AND EXPLAINED TO PT AND PT'S , THEY BOTH VERBALIZED FULL UNDERSTANDING, IV DC'D, CATH TIP INTACT, BLEEDING CONTORLLED, PT UP OUT OF BED WITH MINIMAL ASSIST, ESCORTED OUT TO LOBBY IN WHEELCHAIR, DC HOME NOW WITH WITH HOME HEALTH PT.
== END 2017-07-17 15:15 | disposition home health service (06) | DRG 439 ==
LOC: MED 07:55 → MTU 13:26 → MIC 07-14 15:54 → MTU 07-16 07:50
PROVIDERS: ADMIT Hospitalist; ATTEND Hospitalist
PROC: 0DH Gastrointestinal System, Insertion (ICD-10-PCS; 2017-07-14)
PROC: 3E0G76Z Introduction of Nutritional Substance into Upper GI, Via Natural or Artificial Opening (ICD-10-PCS; 2017-07-14)
PROC: 0DJ08ZZ Inspection of Upper Intestinal Tract, Via Natural or Artificial Opening Endoscopic (ICD-10-PCS; principal; 2017-07-14 14:00)
DX: K85.91 Acute pancreatitis with uninfected necrosis, unspecified (principal); R65.10 Systemic inflammatory response syndrome (SIRS) of non-infectious origin without acute organ dysfunction; C61 Malignant neoplasm of prostate; E11.9 Type 2 diabetes mellitus without complications; I10 Essential (primary) hypertension; E87.6 Hypokalemia; K29.70 Gastritis, unspecified, without bleeding; E78.5 Hyperlipidemia, unspecified; R00.0 Tachycardia, unspecified; R60.9 Edema, unspecified; R94.5 Abnormal results of liver function studies; Z90.49 Acquired absence of other specified parts of digestive tract; Z92.3 Personal history of irradiation
CPT/HCPCS: 36415; 71045; 71250; 74018; 76705; 80053; 81001; 82948; 83605; 83690; 83735; 84100; 84484; 85025; 85610; 86140; 87081; 93005; 96361; 96365; 96366; 96368; 96375; 97110; 97116; 97530; 99285; C1769; C9113; J0360; J1170; J1610; J1815; J2060; J2270; J2405; J2543; J2704; J3010; J3480; J3490; J7030; J7042; J7120; Q0092; Q9967

== ENCOUNTER 2017-07-19 20:28 | Inpatient (IN) | payer MEDICARE ==
[~2017-07-19] VITALS: Ht 162.6 cm; Wt 67.6 kg
[2017-07-19] MEDS: NACL 0.9% 1,000 ML IV SCH (00:30)
[2017-07-19 20:33] VITALS: BP 161/78
--- NOTE | 2017-07-19 20:46 | NUR ---
PT TAKEN TO BED 11
--- NOTE | 2017-07-19 20:50 | NUR ---
PATIENT IS A 72 Y/O MALE WHO PRESENTS TO THE ED C/O SOB. PT STATES, "I HAVE A HARD TIME BREATHING RIGHT NOW." PT STATES, 5/10 ACHING CHEST PAIN THAT DOES NOT RADIATE. PT DENIES CP, SOB, REPORTS DIARRHEA DENIES NAUSEA/VOMITING. NOTED WHEEZING TO BILATERAL BASES, 94% O2 ON RA. PT AAOX4, RR EVEN/UNLABORED. PT REPOSITIONED FOR COMFORT, BED IN LOWEST POSITION. ER MD DR. DEAN NOTIFIED. WILL CONTINUE TO MONITOR.
[2017-07-19] MEDS ORDERED: NACL 0.9% 1,500 ML IV ONE (20:55)
[2017-07-19] MEDS ORDERED: ALBUTEROL SULFATE/IPRATROPIU 3 ML SOL IH ONE (20:55)
[2017-07-19 21:28] LABS: HEMATOCRIT 36.9 % (36-52); HEMOGLOBIN 12.2 g/dL (12.0-18.0); MEAN CORPUSCULAR HEMOGLOBIN 29 pg (27-31); MEAN CORPUSCULAR HGB CONC 33 g/dL (33-37); MEAN CORPUSCULAR VOLUME 87 fL (80-94); PLATELET COUNT (AUTO) 335 K/uL (140-450); RED BLOOD CELL COUNT(AUTO) 4.25 MIL/uL (4.20-6.10); RED CELL DISTRIBUTION WIDTH 12.9 % (11.6-13.7); WHITE BLOOD COUNT (AUTO) 21.4 K/uL (4.8-10.8)
[2017-07-19 21:37] LABS: LYMPHOCYTES % (MANUAL) 1 % (20-46); MONOCYTES % (MANUAL) 8 % (5-12)
[2017-07-19 21:47] LABS: ANION GAP 18.9 (8-16); CARBON DIOXIDE 25.2 mmol/L (21-32); CHLORIDE 102 mmol/L (98-107); GLUCOSE 390 mg/dL (74-106); POTASSIUM 3.1 mmol/L (3.5-5.1); SODIUM SERUM 143 mmol/L (136-145); UREA NITROGEN, BLOOD 11 mg/dL (7-18)
[2017-07-19 21:51] LABS: ALBUMIN 1.9 g/dL (3.4-5.0); ASPARTATE AMINOTRANSFERASE 24 U/L (15-37); TOTAL BILIRUBIN 0.8 mg/dL (0.0-1.0)
[2017-07-19] MEDS ORDERED: PIPERACILLIN/TAZOBACTAM 3.375 GM in DEXTROSE 5% 50 ML IV ONE (22:20)
[2017-07-19] MEDS ORDERED: ASPIRIN 81 MG TAB.CHEW PO ONE (22:20)
[2017-07-19] MEDS ORDERED: POTASSIUM CHLORIDE 10 MEQ TABER PO ONE (22:20)
[2017-07-19] MEDS ORDERED: PIPERACILLIN/TAZOBACTAM 3.375 GM VIAL IV ONE (22:29)
[2017-07-19] MEDS ORDERED: ONDANSETRON 4 MG/2 ML VIAL IVP PRN (22:55)
[2017-07-19] MEDS ORDERED: HYDROcodone/APAP 5/325 MG 1 TAB TAB PO PRN (22:55)
[2017-07-19] MEDS ORDERED: LORazepam 2 MG/ML VIAL IVP PRN (22:55)
[2017-07-19] MEDS ORDERED: ALBUTEROL 0.083% 2.5 MG/3 ML NEBU IH PRN (22:55)
[2017-07-19] MEDS ORDERED: ACETAMINOPHEN 325 MG TAB PO PRN (22:55)
--- NOTE | 2017-07-19 23:48 | NUR ---
Patient will be admitted to care of DR. RANGEL. Admited to M/S. Will go to room 11A Belongings list completed. Report to VERNA SALDIVAR.
[2017-07-19 23:51] VITALS: BP 101/65
--- NOTE | 2017-07-19 23:51 | NUR ---
PATIENT ADMIT DX PNA PATIENT IS CURRENTLY AWAKE ALERT ORIENTED PATIENT AMBULATES WELL TO THE BATHROOM. PATIENT HAS OXYGEN AT 2L VIA NASAL CANNULA BUT HAS NO SOB AT THIS TIME.SKIN CHECK DONE WITH YARIEL MUNSON PATIENT SKIN IS INTACT. PATIENT DENIES ANY HISTORY OF FALLS BUT STATES,"THIS SHORTNESS OF BREATH HAS WEAKENED ME A LITTLE I FEEL A LITTLE WEAK." PATIENT PLACED ON FALL PRECAUTIONS.PATIENT ORIENTED TO ROOM AND CALL LIGHT WITHIN REACH.PLAN OF CARE DISCUSSED WITH THE PATIENT AND VERBALIZES UNDERSTANDING.
--- NOTE | 2017-07-20 | NUR ---
Patient's Plan of Care was discussed and reviewed with PRE PAROLE COUNSELING AIDE: VERNA SANABRIA
[2017-07-20] MEDS ORDERED: AZITHROMYCIN 500 MG INJ VIAL IV ONE (00:07)
--- NOTE | 2017-07-20 00:11 | NUR ---
[facility] OF THE [facility] COLLECTED AND SENT TO THE LAB.
[2017-07-20] MEDS: LEVOFLOXACIN 750 MG/D5W PREMIX 150 ML IV SCH ×2 (00:44→23:19)
--- NOTE | 2017-07-20 00:58 | NUR ---
PATIENT IS CURRENTLY RESTING IN BED DENIES PAIN NO SOB NOTED.IVF INFUSING WELL IV SITE PATENT.CALL LIGHT WITHIN REACH.
--- NOTE | 2017-07-20 01:12 | NUR ---
PATIENT STATES HE HAD PERIODS OF DIARRHEA AT HOME BUT HASN'T HAD ANY HERE IN THE HOSPITAL.WILL CONTINUE TO MONITOR.
[2017-07-20] MEDS: AZITHROMYCIN 500 MG in DEXTROSE 5% 250 ML IV SCH ×2 (01:49→22:07)
--- NOTE | 2017-07-20 01:50 | NUR ---
PATIENT IV SITE LOOKS PUFFY AND SWOLLEN I DISCONTINUED HIS IV AND RESTARTED A IV TO HIS RT SIDE OF THE WRIST G#22 AT FIRST ATTEMPT WITH GOOD BLOOD RETURN.IV ANTIBOTIC INFUSING WELL NO ADR NOTED FROM ANTIBIOTIC. Addendum: 07/20/17 at 0157 by Elva Ribeiro LVN NEW IV TO LEFT WRIST G#22
[2017-07-20] MEDS: HYDROcodone/APAP 5/325 MG 1 TAB TAB PO PRN ×3 (03:07→23:19)
--- NOTE | 2017-07-20 03:09 | NUR ---
PATIENT COMPLAINS OF MODERATE PAIN PATIENT WAS MEDICATED WITH NORCO ORDERED WILL CONTINUE TO MONITOR.CALL LIGHT WITHIN REACH BED ALARM ON.
--- NOTE | 2017-07-20 04:43 | NUR ---
PATIENT IS COUGHING BUT NOT PRODUCING ANY PHLEGM. PATIENT WILL BE INFORMED THAT WE NEED TO COLLECT SPUTUM BUT AT THIS TIME IM UNABLE TO COLLECT ANY SPUTUM SPECIMEN.
--- NOTE | 2017-07-20 06:00 | NUR ---
PATIENT STABLE RESTING IN BED NEEDS MET WILL CONTINUE TO MONITOR.SPECIMEN CUP FOR SPUTUM C/S AT BEDSIDE.
--- NOTE | 2017-07-20 07:30 | NUR ---
BLOOD SUGAR THIS MORNING 391 I CALLED MD RANGEL AND HE CALLED ME BACK AND I INFORMED HIM THAT BS IS HIGH THIS MORNING HE GAVE ME TELEPHONE ORDER TO ADMINISTER HUMULOG INSULIN 14UNITS SUB-Q NOW FOR BS OF 391 AND GAVE ORDER FOR HUMULOG INSULIN SLIDING SCALE AND ACCUCHECKS, AND I ALSO INFORMED HIM THAT PATIENT IS ON REGULAR DIET SO HE GAVE TELEPHONE ORDER TO CHANGE HIS DIET TO [id number] I READ BACK THE ORDERS TO MD. YARIEL FARRIS RECEIVED REPORT AT BEDSIDE AND IS AWARE OF NEW ORDERS.
--- NOTE | 2017-07-20 07:30 | NUR ---
ENDORSEMENT RECEIVED FROM TIP OUT WORKER NURSE. PATIENT IS AWAKE, ALERT. RESPIRATION EVEN, UNLABOR ON 2L NC. SKIN DRY AND WARM. IV PATENT AND INTACT. PLAN OF CARE WAS DISCUSSED WITH PATIENT. DENIED PAIN, SOB AT THIS TIME. BED AT LOW POSITION, SIDE RAILS UP. CALL LIGHT WITHIN REACH.
--- NOTE | 2017-07-20 07:31 | NUR ---
PATIENT WAS GIVEN HUMULOG INSULIN 14UNITS SUB-Q TO LT ARM WITNESSED BY YARIEL FARRIS. PATIENT STABLE.
[2017-07-20 07:39] LABS: HEMATOCRIT 32.5 % (36-52); HEMOGLOBIN 10.8 g/dL (12.0-18.0); MEAN CORPUSCULAR HEMOGLOBIN 29 pg (27-31); MEAN CORPUSCULAR HGB CONC 33 g/dL (33-37); MEAN CORPUSCULAR VOLUME 87 fL (80-94); PLATELET COUNT (AUTO) 331 K/uL (140-450); RED BLOOD CELL COUNT(AUTO) 3.72 MIL/uL (4.20-6.10); RED CELL DISTRIBUTION WIDTH 13.2 % (11.6-13.7); WHITE BLOOD COUNT (AUTO) 18.7 K/uL (4.8-10.8)
[2017-07-20 08:00] VITALS: BP 154/68
[2017-07-20 08:02] LABS: ANION GAP 12.4 (8-16); CARBON DIOXIDE 28.2 mmol/L (21-32); CHLORIDE 106 mmol/L (98-107); CREATININE 0.8 mg/dL (0.7-1.3); GLUCOSE 392 mg/dL (74-106); POTASSIUM 3.6 mmol/L (3.5-5.1); SODIUM SERUM 143 mmol/L (136-145); UREA NITROGEN, BLOOD 10 mg/dL (7-18)
[2017-07-20 08:07] LABS: ALBUMIN 1.6 g/dL (3.4-5.0); ASPARTATE AMINOTRANSFERASE 21 U/L (15-37); MAGNESIUM 1.7 mg/dL (1.8-2.4); TOTAL BILIRUBIN 0.7 mg/dL (0.0-1.0)
[2017-07-20 08:33] LABS: LYMPHOCYTES % (MANUAL) 3 % (20-46); MONOCYTES % (MANUAL) 2 % (5-12)
[2017-07-20 08:39] LABS: CREATINE KINASE MB 1.1 ng/mL (0-3.6)
--- NOTE | 2017-07-20 09:55 | NUR ---
PATIENT HAS BEEN SCREENED AND CATEGORIZED MODERATE NUTRITION RISK. PT WILL BE SEEN WITHIN 3-5 DAYS OF ADMISSION. 07/22/17- 07/24/[address]
--- NOTE | 2017-07-20 10:37 | NUR ---
CM NOTE FAXED INITIAL REVIEW TO [facility] [phone] PH# [phone] [place] EXT [phone] AND TO [facility] [phone] PH# [phone]. PER [facility] [place] PH# [phone] EXT [phone], FOR ANY DISCHARGE NEEDS OR NEED FOR SNF, TO CONTACT HER IN [facility] AND TO FAX ORDER TO [phone]. Addendum: 07/20/17 at 1146 by Nia Robbins RECEIVED FAX FROM [facility]: [facility] PH# [phone] [place] EXT [phone], TRK [phone]
[2017-07-20] MEDS: ENOXAPARIN 40 MG/0.4 ML SYR SUBQ SCH (10:38)
--- NOTE | 2017-07-20 12:00 | NUR ---
PATIENT IS AWAKE, ALERT. RESPIRATION EVEN, UNLABOR ON 2L NC. DENIED SOB AT THIS TIME. FAMILY AT BEDSIDE. MED WAS GIVEN PER ORDER.
[2017-07-20] MEDS: BLOOD GLUCOSE MONITORING 1 DEV DEV FS SCH ×3 (12:05→20:55)
[2017-07-20] MEDS: NACL 0.9% 1,000 ML IV SCH (12:14)
[2017-07-20] MEDS: INSULIN LISPRO SLIDING SCALE 100 UNITS/ML VIAL SUBQ PRN ×2 (12:59→17:44)
[2017-07-20 14:33] LABS: CREATINE KINASE MB 0.5 ng/mL (0-3.6)
[2017-07-20 16:00] VITALS: BP 149/71
--- NOTE | 2017-07-20 16:00 | NUR ---
PATIENT IS AWAKE, ALERT. RESPIRATION EVEN, UNLABOR ON 2L NC. VS WAS TAKEN. COMPLAINED OF ABDOMINAL PAIN /. WILL MEDICATE PER ORDER
--- NOTE | 2017-07-20 18:41 | NUR ---
PATIENT'S WAS INSTRUCTED TO BRING IN PATIENT'S HOME MEDICATIONS FOR THE CONTINUITY OF CARE
[2017-07-20] MEDS ORDERED: cloNIDine 0.1 MG TAB PO PRN (18:55)
--- NOTE | 2017-07-20 19:00 | NUR ---
DR. DENIS WAS MADE AWARE OF PATIENT'S INCREASED BP, AND HR. WILL MEDICATE PER ORDER
--- NOTE | 2017-07-20 19:23 | NUR ---
REPORT GIVEN TO THE RIVET MAKER NURSE. PATIENT IS STABLE AT THIS TIME
--- NOTE | 2017-07-20 19:40 | NUR ---
RECEIVED REPORT FROM AM NURSE. PT RESTING IN BED, AOX4, AMBULATORY, ABLE TO VERBALIZE NEEDS. PT DENIES PAIN, SOB OR S/S OF ACUTE DISTRESS. SPO2 95% ON O2 2L NC, RR 18 EVEN AND UNLABORED. PT REPORTS NO COUGH, PT INSTRUCTED TO COLLECT SPUTUM SAMPLE IF PT IS ABLE TO. DISCUSSED AND REVIEWED PLAN OF CARE WITH PT. PT VERBALIZED UNDERSTANDING. ALL NEEDS MET. SAFETY MEASURES ENSURED. CALL LIGHT WITHIN REACH.
[2017-07-20 20:00] VITALS: BP 143/74
--- NOTE | 2017-07-20 20:56 | NUR ---
BLOOD GLUCOSE 124, NO INSULIN COVERAGE NEEDED. PT RESTING COMFORTABLY, NO S/S OF ACUTE DISTRESS. ALL NEEDS MET. SAFETY MEASURES ENSURED. CALL LIGHT WITHIN REACH.
--- NOTE | 2017-07-20 23:19 | NUR ---
PT C/O LOWER BACK PAIN, PT STATED THAT HE HAS BEEN HAVING THIS PAIN INTERMITTENTLY FOR 2 WEEKS, ADMINISTERED NORCO 5/325 PO PRN, WILL MONITOR. ADMINISTERED REMAINING DUE MED LEVAQUIN IVPB WITH EDUCATION. PT STATED OK. ALL NEEDS MET. IVPB INFUSING WELL. SAFETY MEASURES ENSURED. CALL LIGHT WITHIN REACH.
[2017-07-21] VITALS: BP 140/68
--- NOTE | 2017-07-21 04:19 | NUR ---
PT SLEEPING COMFORTABLY, NO S/S OF ACUTE DISTRESS. ALL NEEDS MET. IVF INFUSING WELL. SAFETY MEASURES ENSURED. CALL LIGHT WITHIN REACH.
[2017-07-21] MEDS: BLOOD GLUCOSE MONITORING 1 DEV DEV FS SCH ×4 (06:23→20:11)
[2017-07-21] MEDS: INSULIN LISPRO SLIDING SCALE 100 UNITS/ML VIAL SUBQ PRN ×4 (06:24→20:12)
--- NOTE | 2017-07-21 06:28 | NUR ---
BLOOD GLUCOSE 236, ADMINISTERED INSULIN COVERAGE WITH EDUCATION. PT VERBALIZED UNDERSTANDING, TOLERATED MED WELL. ALL NEEDS MET. SAFETY MEASURES ENSURED. CALL LIGHT WITHIN REACH.
--- NOTE | 2017-07-21 07:15 | NUR ---
ENDORSED PLAN OF CARE TO AM NURSE. CONDITION STABLE.
--- NOTE | 2017-07-21 07:16 | NUR ---
RECEIVED REPORT FROM PSYCH SOCIAL WORKER NURSE, MARVIN, AT BEDSIDE FOR CONTINUITY OF CARE. PT RESTING IN BED, AOX4, AMBULATORY, ABLE TO VERBALIZE NEEDS. PT DENIES PAIN, SOB OR S/S OF ACUTE DISTRESS. SPO2 95% ON O2 2L NC, RR 20 EVEN AND UNLABORED. PT REPORTS NO COUGH, PT INSTRUCTED TO COLLECT SPUTUM SAMPLE IF PT IS ABLE TO. IV ON RIGHT HAND #22G SL. UPDATED BOARD. DISCUSSED AND REVIEWED PLAN OF CARE WITH PT. PT VERBALIZED UNDERSTANDING. SAFETY PRECAUTIONS IN PLACE, BED ALARM ON, CALL LIGHT WITHIN REACH, WILL CONTINUE TO MONITOR PATIENT.
[2017-07-21 07:33] LABS: HEMATOCRIT 31.7 % (36-52); HEMOGLOBIN 10.7 g/dL (12.0-18.0); MEAN CORPUSCULAR HEMOGLOBIN 29 pg (27-31); MEAN CORPUSCULAR HGB CONC 34 g/dL (33-37); MEAN CORPUSCULAR VOLUME 85 fL (80-94); PLATELET COUNT (AUTO) 370 K/uL (140-450); RED BLOOD CELL COUNT(AUTO) 3.72 MIL/uL (4.20-6.10); RED CELL DISTRIBUTION WIDTH 13.2 % (11.6-13.7); WHITE BLOOD COUNT (AUTO) 19.8 K/uL (4.8-10.8)
[2017-07-21 08:00] VITALS: BP 127/68
[2017-07-21] MEDS: ENOXAPARIN 40 MG/0.4 ML SYR SUBQ SCH (08:35)
--- NOTE | 2017-07-21 08:35 | NUR ---
PATIENT EATING BREAKFAST. MORNING MEDICATION ADMINISTERED. PATIENT TOLERATED IT WELL. NO SIGNS OF SOB OR DISTRESS NOTED. PATIENT DENIES PAIN. SAFETY PRECAUTIONS IN PLACE, WILL CONTINUE TO MONITOR PATIENT.
[2017-07-21 09:01] LABS: LYMPHOCYTES % (MANUAL) 3 % (20-46); MONOCYTES % (MANUAL) 4 % (5-12)
--- NOTE | 2017-07-21 09:05 | NUR ---
DR. RANGEL IN TO SEE THE PATIENT AND UPDATED HIM WITH PLAN OF CARE TO WEAN HIM OFF THE OXYGEN SO THAT HE CAN BE DISCHARGED HOME. PATIENT VERBALIZED UNDERSTANDING. SAFETY PRECAUTIONS IN PLACE, WILL CONTINUE TO MONITOR PATIENT.
[2017-07-21 09:13] LABS: ALBUMIN 1.6 g/dL (3.4-5.0); ANION GAP 10.2 (8-16); ASPARTATE AMINOTRANSFERASE 27 U/L (15-37); CARBON DIOXIDE 29.2 mmol/L (21-32); CHLORIDE 107 mmol/L (98-107); CREATININE 0.8 mg/dL (0.7-1.3); GLUCOSE 262 mg/dL (74-106); POTASSIUM 3.4 mmol/L (3.5-5.1); SODIUM SERUM 143 mmol/L (136-145); TOTAL BILIRUBIN 0.6 mg/dL (0.0-1.0); UREA NITROGEN, BLOOD 8 mg/dL (7-18)
--- NOTE | 2017-07-21 10:29 | NUR ---
CM NOTE CONCURRENT REVIEW FAXED TO [facility] [phone] PH# [phone] EXT [phone] AND TO [facility] [phone] PH# [phone] [place] EXT [phone].
--- NOTE | 2017-07-21 10:54 | NUR ---
PATIENT RESTING COMFORTABLY, NO SIGNS OF DISTRESS OR SOB NOTED. AT BEDSIDE, EXPLAINED PLAN OF CARE TO AND SHE VERBALIZED UNDERSTANDING. SAFETY PRECAUTIONS IN PLACE, BED ALARM ON, CALL LIGHT WITHIN REACH. WILL CONTINUE TO MONITOR PATIENT.
[2017-07-21] MEDS: PIPER/TAZO 3.375GM/D5W PREMIX 50 ML IV SCH ×2 (12:11→17:42)
--- NOTE | 2017-07-21 12:35 | NUR ---
PATIENT EATING LUNCH. AT BEDSIDE. NO SIGNS OF DISTRESS OR SOB NOTED. PATIENT DENIES PAIN. SAFETY PRECAUTIONS IN PLACE, CALL LIGHT WITHIN REACH. BED ALARM ON, BED ON LOWEST SETTING, WILL CONTINUE TO MONITOR PATIENT.
--- NOTE | 2017-07-21 14:55 | NUR ---
PATIENT SLEEPING. NO SIGNS OF DISTRESS OR SOB NOTED. PATIENT DENIES PAIN. SAFETY PRECAUTIONS IN PLACE, CALL LIGHT WITHIN REACH. BED ALARM ON, BED ON LOWEST SETTING, WILL CONTINUE TO MONITOR PATIENT.
[2017-07-21 16:00] VITALS: BP 135/63
[2017-07-21] MEDS: HYDROcodone/APAP 5/325 MG 1 TAB TAB PO PRN ×2 (18:27→23:36)
--- NOTE | 2017-07-21 18:27 | NUR ---
PATIENT REPORTED PAIN 4/10 D/T LOWER BACK PAIN. NORCO PRN GIVEN. AT BEDSIDE. NO SIGNS OF DISTRESS OR SOB NOTED. SAFETY PRECAUTIONS IN PLACE, BED ALARM ON, CALL LIGHT WITHIN REACH, WILL CONTINUE TO MONITOR PATIENT.
--- NOTE | 2017-07-21 19:07 | NUR ---
GAVE REPORT TO MACHINE PIE MAKER RN AT BEDSIDE FOR CONTINUITY OF CARE. PATIENT IN STABLE CONDITION.
--- NOTE | 2017-07-21 19:15 | NUR ---
RECEIVED REPORT FROM AM NURSE. PT RESTING IN BED, AOX4, AMBULATORY, ABLE TO VERBALIZE NEEDS. PT DENIES PAIN, SOB OR S/S OF ACUTE DISTRESS. SPO2 95% ON O2 2L NC, O2 TITRATED DOWN TO O2 1L NC, SPO2 94%, RR 20 EVEN AND UNLABORED. PT REPORTS NO COUGH, UNABLE TO COLLECT SPUTUM SAMPLE. DISCUSSED AND REVIEWED PLAN OF CARE WITH PT. PT VERBALIZED UNDERSTANDING. ALL NEEDS MET. SAFETY MEASURES ENSURED. CALL LIGHT WITHIN REACH.
[2017-07-21 20:00] VITALS: BP 143/74
--- NOTE | 2017-07-21 20:12 | NUR ---
PT SITTING COMFORTABLY AT BEDSIDE, PT DENIES S/S OF ACUTE DISTRESS. BLOOD GLUCOSE 204, INSULIN COVERAGE ADMINISTERED WITH EDUCATION. PT VERBALIZED UNDERSTANDING, TOLERATED MED WELL. ALL NEEDS MET. SAFETY MEASURES ENSURED. CALL LIGHT WITHIN REACH.
[2017-07-21] MEDS: LEVOFLOXACIN 750 MG/D5W PREMIX 150 ML IV SCH (22:23)
[2017-07-22] VITALS: BP 140/70
[2017-07-22] MEDS: PIPER/TAZO 3.375GM/D5W PREMIX 50 ML IV SCH ×5 (00:15→23:48)
--- NOTE | 2017-07-22 00:15 | NUR ---
PT C/O ABD PAIN. SEE PAIN ASSESSMENT. ADMINISTERED NORCO 5/325 PO PRN WITH EDUCATION. ADMINISTERED DUE MED ZOSYN IVPB WITH EDUCATION. PT VERBALIZED UNDERSTANDING. ALL NEEDS MET. IVPB INFUSING WELL. SAFETY MEASURES ENSURED. CALL LIGHT WITHIN REACH.
--- NOTE | 2017-07-22 05:12 | NUR ---
ADMINISTERED DUE MED PATY IVPB WITH EDUCATION. PT VERBALIZED UNDERSTANDING. ALL NEEDS MET. IVPB INFUSING WELL. SAFETY MEASURES ENSURED. CALL LIGHT WITHIN REACH.
[2017-07-22] MEDS: BLOOD GLUCOSE MONITORING 1 DEV DEV FS SCH ×4 (06:11→20:57)
[2017-07-22] MEDS: INSULIN LISPRO SLIDING SCALE 100 UNITS/ML VIAL SUBQ PRN ×4 (06:19→20:58)
--- NOTE | 2017-07-22 06:24 | NUR ---
BLOOD GLUCOSE 186, INSULIN COVERAGE ADMINISTERED WITH EDUCATION. PT VERBALIZED UNDERSTANDING, TOLERATED MED WELL. ALL NEEDS MET. SAFETY MEASURES ENSURED. CALL LIGHT WITHIN REACH.
[2017-07-22 07:12] LABS: HEMATOCRIT 31.7 % (36-52); HEMOGLOBIN 10.4 g/dL (12.0-18.0); MEAN CORPUSCULAR HEMOGLOBIN 28 pg (27-31); MEAN CORPUSCULAR HGB CONC 33 g/dL (33-37); MEAN CORPUSCULAR VOLUME 86 fL (80-94); PLATELET COUNT (AUTO) 392 K/uL (140-450); RED BLOOD CELL COUNT(AUTO) 3.68 MIL/uL (4.20-6.10); RED CELL DISTRIBUTION WIDTH 13.4 % (11.6-13.7); WHITE BLOOD COUNT (AUTO) 18.4 K/uL (4.8-10.8)
--- NOTE | 2017-07-22 07:15 | NUR ---
ENDORSED PLAN OF CARE TO AM NURSE. CONDITION STABLE.
--- NOTE | 2017-07-22 07:30 | NUR ---
RECEIVED REPORT FROM AIR HOLE DRILLER NURSE. PT RESTING IN BED, AAOX4, AMBULATORY, ABLE TO VERBALIZE NEEDS. PT DENIES PAIN AT THIS TIME. IV NOTED ON THE LEFT HAND 22G, PATENT AND INTACT, TKO. DISCUSSED AND REVIEWED PLAN OF CARE WITH PT. PT VERBALIZED UNDERSTANDING. SAFETY MEASURES ENSURED. BED IN LOWEST POSITION. CALL LIGHT WITHIN REACH.
[2017-07-22 07:44] LABS: ANION GAP 10.1 (8-16); CHLORIDE 106 mmol/L (98-107); CREATININE 0.8 mg/dL (0.7-1.3); GLUCOSE 191 mg/dL (74-106); POTASSIUM 3.1 mmol/L (3.5-5.1); SODIUM SERUM 143 mmol/L (136-145); UREA NITROGEN, BLOOD 10 mg/dL (7-18)
[2017-07-22 08:00] VITALS: BP 148/70
[2017-07-22 09:14] LABS: LYMPHOCYTES % (MANUAL) 3 % (20-46); MONOCYTES % (MANUAL) 1 % (5-12)
--- NOTE | 2017-07-22 09:30 | NUR ---
PT O2 SAT ON ROOM AIR 94%. NO DISTRESS NOTED. PT COUGH INTERMITTENTLY. NO PHLEMA AT THIS TIME.
[2017-07-22] MEDS: ENOXAPARIN 40 MG/0.4 ML SYR SUBQ SCH (09:31)
--- NOTE | 2017-07-22 11:00 | NUR ---
IV CATH ON THE LEFT HAND ACCIDENTALLY REMOVED BY THE PATIENT. NEW IV 22G PUT IN ON THE RIGHT HAND.
--- NOTE | 2017-07-22 11:59 | NUR ---
CM NOTE CONCURRENT REVIEW FAXED TO [facility] [phone] PH# [phone] EXT [phone] AND TO [facility] [phone] PH# [phone] [place] EXT [phone].
--- NOTE | 2017-07-22 12:30 | NUR ---
CALLED KITCHEN THAT PT DOESN'T WANT RED MEAT. KITCHEN WILL BRING CHICKEN OR FISH.
--- NOTE | 2017-07-22 13:20 | NUR ---
DR. RANGEL HAS SEEN THE PT, NEW ORDERS WILL BE PUT IN.
[2017-07-22] MEDS ORDERED: POTASSIUM CHLORIDE 10 MEQ TABER PO SCH (13:53)
[2017-07-22 16:00] VITALS: BP 145/69
[2017-07-22] MEDS: HYDROcodone/APAP 5/325 MG 1 TAB TAB PO PRN (16:00)
--- NOTE | 2017-07-22 18:00 | NUR ---
PT IS SITTING UP AND EATING DINNER. NO S/S OF ACUTE DISTRESS. AT BEDSIDE.
--- NOTE | 2017-07-22 19:23 | NUR ---
ENDORSED PT TO FRANCHISE SALES REPRESENTATIVE NURSE. PT IS IN STABLE CONDITION.
--- NOTE | 2017-07-22 19:30 | NUR ---
RECEIVED REPORT FROM AM NURSE. PT RESTING IN BED, AOX4, AMBULATORY, ABLE TO VERBALIZE NEEDS. PT DENIES PAIN, SOB OR S/S OF ACUTE DISTRESS. SPO2 94% ROOM AIR. PT REPORTS INTERMITTENT NONPRODUCTIVE COUGH, NO SPUTUM. IV ACCESS ASYMPTOMATIC, PATENT AND INTACT, SALINE LOCKED. DISCUSSED AND REVIEWED PLAN OF CARE WITH PT. PT VERBALIZED UNDERSTANDING. ALL NEEDS MET. SAFETY MEASURES ENSURED. CALL LIGHT WITHIN REACH.
[2017-07-22 20:00] VITALS: BP 130/68
--- NOTE | 2017-07-22 21:01 | NUR ---
BLOOD GLUCOSE 208, INSULIN COVERAGE ADMINISTERED WITH EVENING SNACK AND EDUCATION. PT VERBALIZED UNDERSTANDING, TOLERATED MED WELL. ALL NEEDS MET. SAFETY MEASURES ENSURED. CALL LIGHT WITHIN REACH.
[2017-07-22] MEDS: LEVOFLOXACIN 750 MG/D5W PREMIX 150 ML IV SCH (22:13)
[2017-07-23] VITALS: BP 150/70
[2017-07-23] MEDS: HYDROcodone/APAP 5/325 MG 1 TAB TAB PO PRN (00:03)
--- NOTE | 2017-07-23 00:03 | NUR ---
TEMP 100.5, COOLING MEASURES ENSURED, ADMINISTERED TYLENOL PO PRN WITH EDUCATION. PT C/O ABD PAIN, SEE PAIN ASSESSMENT, ADMINISTERED NORCO PO PRN ORDERED WITH EDUCATION. ADMINISTERED DUE MED ZOSYN IVP WITH EDUCATION. PT VERBALIZED UNDERSTANDING. ALL NEEDS MET. IVPB INFUSING WELL. SAFETY MEASURES ENSURED. CALL LIGHT WITHIN REACH.
[2017-07-23] MEDS: PIPER/TAZO 3.375GM/D5W PREMIX 50 ML IV SCH ×2 (05:04→11:34)
--- NOTE | 2017-07-23 05:05 | NUR ---
TEMP 98.5, CONDITION STABLE. ADMINISTERED DUE MED ZOSYN IVPB WITH EDUCATION. PT VERBALIZED UNDERSTANDING. ALL NEEDS MET. IVPB INFUSING WELL. SAFETY MEASURES ENSURED. CALL LIGHT WITHIN REACH.
[2017-07-23] MEDS: BLOOD GLUCOSE MONITORING 1 DEV DEV FS SCH ×2 (06:18→11:34)
[2017-07-23] MEDS: INSULIN LISPRO SLIDING SCALE 100 UNITS/ML VIAL SUBQ PRN ×2 (06:21→12:03)
--- NOTE | 2017-07-23 06:21 | NUR ---
BLOOD GLUCOSE 201, ADMINISTERED INSULIN COVERAGE WITH EDUCATION. PT VERBALIZED UNDERSTANDING, TOLERATED MED WELL. ALL NEEDS MET. SAFETY MEASURES ENSURED. CALL LIGHT WITHIN REACH.
--- NOTE | 2017-07-23 07:10 | NUR ---
ENDORSED PLAN OF CARE TO AM NURSE. CONDITION STABLE.
[2017-07-23 07:14] LABS: HEMATOCRIT 29.6 % (36-52); HEMOGLOBIN 9.6 g/dL (12.0-18.0); MEAN CORPUSCULAR HEMOGLOBIN 28 pg (27-31); MEAN CORPUSCULAR HGB CONC 32 g/dL (33-37); MEAN CORPUSCULAR VOLUME 86 fL (80-94); PLATELET COUNT (AUTO) 401 K/uL (140-450); RED BLOOD CELL COUNT(AUTO) 3.43 MIL/uL (4.20-6.10); RED CELL DISTRIBUTION WIDTH 13.4 % (11.6-13.7); WHITE BLOOD COUNT (AUTO) 15.7 K/uL (4.8-10.8)
--- NOTE | 2017-07-23 07:30 | NUR ---
RECEIVED REPORT FROM SHIELD CLEANER NURSE. PT RESTING IN BED, AAOX4, AMBULATORY, ABLE TO VERBALIZE NEEDS. PT DENIES PAIN AT THIS TIME. IV NOTED ON THE RIGHT HAND 22G, PATENT AND INTACT, TKO. C/O ABD PAIN 3/10, TOLERABLE AT THIS TIME. DISCUSSED AND REVIEWED PLAN OF CARE WITH PT. PT VERBALIZED UNDERSTANDING. SAFETY MEASURES ENSURED. BED IN LOWEST POSITION. CALL LIGHT WITHIN REACH. WILL CONTINUE TO MONITOR.
[2017-07-23 07:44] LABS: ANION GAP 11.1 (8-16); CARBON DIOXIDE 30.7 mmol/L (21-32); CHLORIDE 106 mmol/L (98-107); CREATININE 0.9 mg/dL (0.7-1.3); GLUCOSE 218 mg/dL (74-106); POTASSIUM 3.8 mmol/L (3.5-5.1); SODIUM SERUM 144 mmol/L (136-145); UREA NITROGEN, BLOOD 9 mg/dL (7-18)
--- NOTE | 2017-07-23 09:15 | NUR ---
PT HAS BEEN TAKEN TO RADIOLOGY FOR CHEST XR. PT IS IN STABLE CONDITION.
--- NOTE | 2017-07-23 09:37 | NUR ---
CM NOTE CONCURRENT REVIEW FAXED TO [facility] [phone] PH# [phone] [phone] AND TO [facility] [phone] PH# [phone] [place] EXT [phone].
[2017-07-23 09:45] LABS: LYMPHOCYTES % (MANUAL) 2 % (20-46); MONOCYTES % (MANUAL) 4 % (5-12)
[2017-07-23] MEDS: ENOXAPARIN 40 MG/0.4 ML SYR SUBQ SCH (10:05)
[2017-07-23] MEDS ORDERED: LEVO750T2 PO (11:34)
[2017-07-23] MEDS ORDERED: ACET-1182 PO (11:34)
[2017-07-23] MEDS ORDERED: AMOX-999 PO (11:36)
[2017-07-23] MEDS ORDERED: METF1000 PO (11:39)
--- NOTE | 2017-07-23 13:30 | NUR ---
PT DISCHARGED PER MD ORDER. DISCHARGE INSTRUCTIONS AND MEDICATION TEACHING PROVIDED. TAUGHT PT TO WATCH HIS WEIGHT, EXERCISE BY WALKING, EAT MORE VEGETABLE AND FRUIT, AVOID FATTY FOOD. COME BACK TO THE HOSPITAL IF SYMPTOMS GETS WORSE. PT VERBALIZED UNDERSTANDING. IV CATH DC'ED, TIP INTACT, PRESSURE APPLIED. PT IS IN STABLE CONDITION. NO ACUTE DISTRESS NOTED. PT LEFT WITH HIS AND ALL HIS BELONGINGS.
== END 2017-07-23 13:30 | disposition home or self-care (01) | DRG 193 ==
LOC: MED 20:28 → UNDOADMIN 22:59 → MMU 22:59 → MTU 22:59
PROVIDERS: ADMIT Hospitalist; ATTEND Hospitalist
DX: J18.9 Pneumonia, unspecified organism (principal); J96.20 Acute and chronic respiratory failure, unspecified whether with hypoxia or hypercapnia; E44.0 Moderate protein-calorie malnutrition; E11.65 Type 2 diabetes mellitus with hyperglycemia; R65.10 Systemic inflammatory response syndrome (SIRS) of non-infectious origin without acute organ dysfunction; E87.6 Hypokalemia; I10 Essential (primary) hypertension; E78.5 Hyperlipidemia, unspecified; Z68.25 Body mass index [BMI] 25.0-25.9, adult; Z79.84 Long term (current) use of oral hypoglycemic drugs; Z90.49 Acquired absence of other specified parts of digestive tract; Z92.3 Personal history of irradiation; Z85.46 Personal history of malignant neoplasm of prostate
CPT/HCPCS: 36415; 71045; 71046; 80048; 80053; 82550; 82553; 82948; 83605; 83690; 83735; 83880; 84484; 85025; 85610; 85730; 87040; 87070; 87081; 87205; 87804; 93005; 94640; 96361; 96365; 99285; J0456; J1650; J1815; J1956; J2543; J7030; J7060; J7620; Q0092

== ENCOUNTER 2017-07-28 16:08 | Inpatient (IN) | payer MEDICARE ==
[~2017-07-28] VITALS: Ht 162.6 cm; Wt 68.0 kg
[~2017-07-28 16:08] MED LIST changes: +ACET-1182 PO; +AMOX-999 PO; -BICA50TA2 PO; +LEVO750T2 PO; -LISI10TA11 PO; +METF1000 PO
--- NOTE | 2017-07-28 16:14 | NUR ---
PT PLACED IN ROOM 2 VIA W/C WITH AT BEDSIDE. REPORTS PT WAS DISCHARGED FROM [facility] ON 07/21/17 FOR PNA, BUT ALSO PRIOR HOSPITILAZATION FROM [facility] IN MAY FOR CHOLECYSTITIS. SHE REPORTSHE HAD SURGERY (SPECIFICS) UNKNOWN. PT HERE WITH C/O GNEERALIZED ABDOMINAL PAIN SINCE THEN. INTERMITTENT WITH MILD FEVERS/CHILLS. POST SURGICAL SCARS NOTED, C/D/I. PT DENIES NAUSEA/VOMTTING, BUT HUGE DECRAESE IN APPETITE. ABD ROUND/SOFT, TENDER TO PALPATION. +BS X 4 QUADS, DENIES DYSURIA.
[2017-07-28 16:18] VITALS: BP 147/66
--- NOTE | 2017-07-28 16:26 | NUR ---
DR CASE IN ROOM FOR EXAM
[2017-07-28 17:02] LABS: HEMATOCRIT 32.4 % (36-52); HEMOGLOBIN 10.7 g/dL (12.0-18.0); MEAN CORPUSCULAR HEMOGLOBIN 28 pg (27-31); MEAN CORPUSCULAR HGB CONC 33 g/dL (33-37); MEAN CORPUSCULAR VOLUME 86 fL (80-94); PLATELET COUNT (AUTO) 394 K/uL (140-450); RED BLOOD CELL COUNT(AUTO) 3.76 MIL/uL (4.20-6.10); RED CELL DISTRIBUTION WIDTH 13.2 % (11.6-13.7); WHITE BLOOD COUNT (AUTO) 10.2 K/uL (4.8-10.8)
[2017-07-28 17:18] LABS: EOSINOPHILS % (MANUAL) 1 % (0-4); LYMPHOCYTES % (MANUAL) 3 % (20-46); MONOCYTES % (MANUAL) 6 % (5-12)
[2017-07-28 17:31] LABS: AMYLASE 20 U/L (25-115); LIPASE 59 U/L (73-393)
[2017-07-28 17:34] LABS: ALBUMIN 1.8 g/dL (3.4-5.0); ANION GAP 16.1 (8-16); ASPARTATE AMINOTRANSFERASE 43 U/L (15-37); CARBON DIOXIDE 26.1 mmol/L (21-32); CHLORIDE 101 mmol/L (98-107); CREATININE 0.9 mg/dL (0.7-1.3); POTASSIUM 4.2 mmol/L (3.5-5.1); SODIUM SERUM 139 mmol/L (136-145); TOTAL BILIRUBIN 0.5 mg/dL (0.0-1.0); UREA NITROGEN, BLOOD 10 mg/dL (7-18)
[2017-07-28 17:36] LABS: PROTHROMBIN TIME 11.9 secs (10.8-13.4)
[2017-07-28 17:38] LABS: GLUCOSE 433 mg/dL (74-106)
--- NOTE | 2017-07-28 17:50 | NUR ---
Pt took to CT scan
[2017-07-28 17:54] LABS: APPEARANCE,URINE CLEAR (CLEAR); BILIRUBIN,URINE NEGATIVE (NEGATIVE); BLOOD, URINE NEGATIVE (NEGATIVE); COLOR,URINE YELLOW (YELLOW); LEUKOCYTE ESTERASE ,URINE NEGATIVE (NEGATIVE); NITRITE, URINE NEGATIVE (NEGATIVE); UGLUCOSE 3+ (NEGATIVE)
[2017-07-28] MEDS ORDERED: NACL 0.9% 1,000 ML IV ONE ×2 (18:00→19:00)
--- NOTE | 2017-07-28 18:07 | NUR ---
PT BACK FROM CT
[2017-07-28] MEDS ORDERED: PROCHLORPERAZINE 10 MG/2 ML VIAL IVP ONE (18:30)
[2017-07-28] MEDS ORDERED: MORPHINE SULFATE 4 MG/ML SYR IVP ONE (19:00)
[2017-07-28] MEDS ORDERED: MORPHINE SULFATE 4 MG/ML SYR ONE (19:13)
--- NOTE | 2017-07-28 19:15 | NUR ---
Report given to oncoming RN
--- NOTE | 2017-07-28 19:17 | NUR ---
PT RESTING IN BED, FAMILY AT BEDSIDE. NO S/S OF DISTRESS NOTED AT THE MOMENT.
[2017-07-28] MEDS ORDERED: MORPHINE SULFATE 4 MG/ML SYR IVP PRN (19:25)
[2017-07-28] MEDS ORDERED: MORPHINE SULFATE 2 MG/ML SYR IVP PRN (19:25)
[2017-07-28] MEDS ORDERED: ALBUTEROL 0.083% 2.5 MG/3 ML NEBU IH PRN (19:25)
[2017-07-28] MEDS ORDERED: ONDANSETRON 4 MG/2 ML VIAL IVP PRN (19:25)
--- NOTE | 2017-07-28 19:49 | NUR ---
PT TRASNFERED TO FLOOR VIA GURNEY, NO S/S OF DISTRESS NOTED AT THE MOMENT.
--- NOTE | 2017-07-28 19:51 | NUR ---
REPORT GIVEN TO YARIEL BEAVER AT BEDSIDE.
[2017-07-28 20:00] VITALS: BP 116/94
--- NOTE | 2017-07-28 20:00 | NUR ---
PT ARRIVED AT UNIT VIA GURNEY, PT STABLE, NO DISTRESS NOTED, RECEIVED BEDSIDE REPORT FROM ER NURSE SERGEI SALDIVAR, IV TO LAC 20 G RUNNING NS BOLUS, PT ON 2LPM O2 VIA NC, NO SOB, INITIAL ASSESSMENT DONE, ALL SAFETY PRECAUTION MET, BY BEDSIDE, WILL CONTINUE TO MONITOR.
[2017-07-28] MEDS ORDERED: DEXTROSE 50% 50 ML SYR IVP PRN (20:30)
[2017-07-28 20:55] LABS: CHOL/HDL RATIO 3.6 (1-4.5)
[2017-07-28] MEDS: BLOOD GLUCOSE MONITORING 1 DEV DEV FS SCH (21:00)
[2017-07-28] MEDS: NACL 0.9% 1,000 ML IV SCH (21:55)
--- NOTE | 2017-07-28 21:55 | NUR ---
DUE MEDICATION GIVEN, PT TOLERATED WELL, NO DISTRESS NOTED, CALL LIGHT WITHIN REACH.
[2017-07-28] MEDS: INSULIN LISPRO SLIDING SCALE 100 UNITS/ML VIAL SUBQ PRN (22:05)
[2017-07-29] VITALS: BP 148/70
--- NOTE | 2017-07-29 00:10 | NUR ---
CHECKED ON PT, PT SLEEPING, NO DISTRESS NOTED, CALL LIGHT WITHIN REACH, WILL CONTINUE TO MONITOR.
[2017-07-29] MEDS ORDERED: MORPHINE SULFATE 2 MG/ML SYR ONE (02:03)
--- NOTE | 2017-07-29 02:08 | NUR ---
PT C/O PAIN 6/10 ON THE R UPPER QUADRANT OF THE ABD, PAIN MEDICATION GIVEN, PT TOLERATED WELL, NO DISTRESS NOTED, CALL LIGHT WITHIN REACH, WILL CONTINUE TO MONITOR.
[2017-07-29 04:00] VITALS: BP 141/68
[2017-07-29] MEDS: BLOOD GLUCOSE MONITORING 1 DEV DEV FS SCH ×4 (06:30→21:04)
[2017-07-29] MEDS: INSULIN LISPRO SLIDING SCALE 100 UNITS/ML VIAL SUBQ PRN ×3 (06:43→23:46)
--- NOTE | 2017-07-29 06:43 | NUR ---
BS CHECKED, PT BS 220, INSULIN GIVEN, PT TOLERATED WELL, NO DISTRESS NOTED, CALL LIGHT WITHIN REACH.
--- NOTE | 2017-07-29 07:15 | NUR ---
RECEIVED PATIENT REPORT AT BEDSIDE FROM NIGHT NURSE. PATIENT IS SLEEPING AND EASILY AROUSABLE TO VOICE, PATIENT IS AAOX3 AND SHOWS NO S/S OF ACUTE DISTRESS ON O2 @ 2L VIA NC. PATIENT DENIES PAIN AND SOB. ON TELE MONITOR. IV NOTED ON THE LEFT HAND WITH IVF'S INFUSING WELL. PATIENT WAS EXPLAINED HOSPITAL ENVIRONMENT, USING CALL LIGHT FOR ASSISTANCE, AND POC FOR TODAY, PATIENT VERBALIZED UNDERSTANDING. THE BED IS IN LOW POSITION WITH CALL LIGHT WITHIN REACH, FALL AND SAFETY PRECAUTIONS IN PLACE.
--- NOTE | 2017-07-29 07:30 | NUR ---
BEDSIDE REPORT GIVEN TO DAY SHIFT NURSE COLE SALDIVAR, ENDORSED PLAN OF CARE, PT STABLE, NO DISTRESS NOTED CALL LIGHT WITHIN REACH.
[2017-07-29 08:01] VITALS: BP 157/76
[2017-07-29] MEDS: NACL 0.9% 1,000 ML IV SCH (08:44)
--- NOTE | 2017-07-29 09:03 | NUR ---
PATIENT HAS BEEN SCREENED AND CATEGORIZED MODERATE NUTRITION RISK. PATIENT WILL BE SEEN WITHIN 3-5 DAYS OF ADMISSION. 07/30/17-08/01/[address]
[2017-07-29 09:19] LABS: BASOPHILS # (AUTO) 0.1 K/uL (0.00-0.22); BASOPHILS % (AUTO) 0.6 % (0.0-2.0); EOSINOPHILS # (AUTO) 0.1 K/uL (0-0.4); EOSINOPHILS % (AUTO) 1.1 % (0.0-4.0); HEMATOCRIT 31.5 % (36-52); HEMOGLOBIN 10.3 g/dL (12.0-18.0); LYMPHOCYTES # (AUTO) 0.3 K/uL (2.0-11.5); LYMPHOCYTES % (AUTO) 3.1 % (20.5-51.1); MEAN CORPUSCULAR HEMOGLOBIN 28 pg (27-31); MEAN CORPUSCULAR HGB CONC 33 g/dL (33-37); MEAN CORPUSCULAR VOLUME 87 fL (80-94); MONOCYTES # (AUTO) 0.8 K/uL (0.8-1.0); MONOCYTES % (AUTO) 8.6 % (1.7-9.3); NEUTROPHILS % (AUTO) 86.6 % (42.2-75.2); PLATELET COUNT (AUTO) 373 K/uL (140-450); RED BLOOD CELL COUNT(AUTO) 3.62 MIL/uL (4.20-6.10); RED CELL DISTRIBUTION WIDTH 13.1 % (11.6-13.7); WHITE BLOOD COUNT (AUTO) 9.3 K/uL (4.8-10.8)
--- NOTE | 2017-07-29 09:29 | NUR ---
ADMINISTERED SCHEDULED MEDICATIONS. ALL NEEDS MET AT THIS TIME. BED IN LOW POSITION WITH CALL LIGHT WITHIN REACH.
[2017-07-29 10:14] LABS: ALBUMIN 1.6 g/dL (3.4-5.0); ANION GAP 9.3 (8-16); ASPARTATE AMINOTRANSFERASE 29 U/L (15-37); CARBON DIOXIDE 32.3 mmol/L (21-32); CHLORIDE 108 mmol/L (98-107); CREATININE 0.8 mg/dL (0.7-1.3); GLUCOSE 206 mg/dL (74-106); LIPASE 46 U/L (73-393); POTASSIUM 3.6 mmol/L (3.5-5.1); SODIUM SERUM 146 mmol/L (136-145); TOTAL BILIRUBIN 0.3 mg/dL (0.0-1.0); UREA NITROGEN, BLOOD 7 mg/dL (7-18)
--- NOTE | 2017-07-29 10:24 | NUR ---
PATIENT BEING SEEN BY DR RAMAN, PATIENT NOTIFIED OF NEW UPDATES FOR POC. PATIENT AND PATIENT'S VERBALIZED UNDERSTANDING OF POC.
--- NOTE | 2017-07-29 10:30 | NUR ---
DR RAMAN NOTIFIED OF BP ELEVATED BP, PATIENT ON LISINOPRIL [address] PLACE ORDERS.
[2017-07-29] MEDS ORDERED: hydrALAZINE 20 MG/ML VIAL IVP PRN (11:20)
--- NOTE | 2017-07-29 11:31 | NUR ---
PATIENT BLOOD SUGAR 172, PATIENT NPO AND ON NORMAL SALINE IVF'S, DR RAMAN NOTIFIED IF SHE WOULD LIKE TO CHANGE ORDERS FOR OTHER IVF'S. NO INSULIN COVERAGE DONE AT THIS TIME.
[2017-07-29 12:00] VITALS: BP 156/67
--- NOTE | 2017-07-29 12:20 | NUR ---
RECEIVED ORDER FOR HIGHER LEVEL OF CARE, TERTIARY CARE FOR MRCP AND ERCP I CALLED [facility] AND SPOKE WITH HERBERTH. HE SAYS [facility] IS RESPONSIBLE. I CALLED MO FROM [facility], X [phone]. SHE SAID TO TRY [facility], [facility], [facility] OR [facility]. I CALLED [facility] AND SPOKE WITH AC. PHONE [phone], TRANSFER CENTER. SHE SAID TO FAX INFORMATION TO HER AT [phone], WHICH I DID.
--- NOTE | 2017-07-29 12:38 | NUR ---
CALLED [facility] AND SPOKE WITH SILVINO [phone], POLICE CAPTAIN SENIOR. FAXED HIM INFORMATION TO [phone].
[2017-07-29] MEDS: OCTREOTIDE ACETATE 100 MCG/ML VIAL SUBQ SCH ×2 (13:23→21:06)
--- NOTE | 2017-07-29 13:25 | NUR ---
ADMINISTERED SCHEDULED MEDICATIONS, PATIENT'S NEEDS MET AT THIS TIME, BED IN LOW POSITION WITH CALL LIGHT WITHIN REACH.
[2017-07-29] MEDS: POTASSIUM CHLORIDE 20 MEQ in LACTATED RINGERS 1,000 ML IV SCH (13:30)
--- NOTE | 2017-07-29 13:32 | NUR ---
FAXED INITIAL REVIEW TO [facility] [phone] PHONE [place] [phone] Addendum: 07/29/17 at 1333 by Aby Cárdenas CM CALLED HERBERTH FROM [facility]. HE SAID REVIEW JUST GO TO [facility].
--- NOTE | 2017-07-29 13:49 | NUR ---
RECEIVED A CALL FROM SILVINO FROM [facility] HE SAID THEY CAN TAKE THE PATIENT BUT NEEDS AUTH FROM [facility]. I CALLED MO FROM [facility] AND SHE SAID SHE WOULD CALL ME BACK WITH THE AUTH. RECEIVED A CALL FROM AC FROM [facility]. THEY CANNOT TAKE THIS PATIENT.
--- NOTE | 2017-07-29 13:54 | NUR ---
SPOKE WITH MO FROM [facility] THE AUTH FOR [facility] [place] [id number] AUTH FOR TRANSORT IS [id number]*PTR I CALLED [facility] AND INFORMED SILVINO OF THE AUTH.
--- NOTE | 2017-07-29 15:05 | NUR ---
PATIENT IS RESTING COMFORTABLY AND SHOWS NO S/S OF ACUTE DISTRESS ON O2 @ 2L VIA NC. PATIENT STATES NO PAIN AT THIS TIME; HOWEVER, IT IS INTERMITTENT. THE BED IS IN LOW POSITION WITH CALL LIGHT WITHIN REACH.
[2017-07-29 16:00] VITALS: BP 150/80
--- NOTE | 2017-07-29 16:02 | NUR ---
JENNIE SALDIVARFARM SERVICE CONSULTANT DIRECTOR WAS IN TOUCH WITH AND DR. RAMAN WAS GIVEN THE PHONE NUMBER EARLIER TO SPEAK WITH THE HOSPITALIST AT [facility]. SHE SAID THAT THE HOSPITALIST TOLD HER SHE NEEDED TO GET A GI DOCTOR FIRST. JENNIE SALDIVAR CALLED [facility] AND SPOKE WITH SILVINO, DIRECTOR. SHE GAVE HIM THE PHONE NUMBER TO THE FLOOR IN CASE THEY GET A BED. SILVINO SAID HE WOULD TRY TO GET A GI DOCTOR.
[2017-07-29] MEDS ORDERED: AMYLASE/LIPASE/PROTEASE 1 CAPDR ONE ×2 (16:05→16:20)
[2017-07-29] MEDS: AMYLASE/LIPASE/PROTEASE 1 CAPDR PO SCH (16:33)
--- NOTE | 2017-07-29 16:40 | NUR ---
ADMINISTERED SCHEDULED MEDICATIONS. PATIENT SWALLOWED WITHOUT DIFFICULTY. ALL NEEDS MET AT THIS TIME. BED IN LOW POSITION WITH CALL LIGHT WITHIN REACH.
--- NOTE | 2017-07-29 16:55 | NUR ---
CALLED [facility] AND SPOKE WITH SILVINO. HE SAID THEIR GI DOCTOR THAT DOES THE PROCEDURE IS BOOKED SOLID AND UNABLE TO TAKE THIS PATIENT. I CALLED LEORA FROM [facility], AND SHE SAID SHE WOULD APPROVE AND DO AN JORDAN TO [facility]. I CALLED DR. RAMAN AND INFORMED HER AND ASKED HER TO CALL BED CONTROL AT [facility]. I CALLED [facility] EARLIER AND SPOKE WITH GIUSEPPE AND TOLD HER DR. RAMAN WOULD CALL HER FOR A BED.
--- NOTE | 2017-07-29 18:00 | NUR ---
PATIENT HAD CLEAR LIQUID DIET FOR DINNER AND STATED HE TOLERATED DIET WELL, DENIES N/V AND STATES TOLERABLE ABD PAIN OF 3/10.
[2017-07-29] MEDS ORDERED: ALBUTEROL 0.083% 2.5 MG/3 ML NEBU INH ONE (19:00)
--- NOTE | 2017-07-29 19:05 | NUR ---
GAVE REPORT TO NIGHT NURSE AT BEDSIDE, PATIENT ENDORSED IN STABLE CONDITION.
--- NOTE | 2017-07-29 19:06 | NUR ---
PATIENT REPORT RECEIVED FROM MORNING NURSE AT BEDSIDE. PATIENT IS AWAKE AND ALERT. FAMILY IS AT BEDSIDE. NO SIGNS AND SYMPTOMS OF DISTRESS NOTED. NO COMPLAINTS OF PAIN AT THIS TIME. PATIENT IS ON O2 2L NC. IV SITE NOTED ON RIGHT AC 20 GAUGE, IVF INFUSING WELL. BED IN LOWEST POSITION. SIDE RAILS UP AND CALL LIGHT WITHIN REACH. WILL CONTINUE TO MONITOR.
[2017-07-29 20:00] VITALS: BP 153/81
[2017-07-29] MEDS ORDERED: PANTOPRAZOLE 40 MG INJ VIAL IVP ONE (20:31)
[2017-07-29] MEDS ORDERED: SENNA 8.6 MG TAB ONE (20:32)
[2017-07-29] MEDS: PANTOPRAZOLE 40 MG INJ VIAL IVP SCH (21:06)
[2017-07-29] MEDS: SENNA 8.6 MG TAB PO SCH (21:06)
--- NOTE | 2017-07-29 22:00 | NUR ---
ASSISTED PATIENT TO THE RESTROOM. PATIENT HAD A BOWEL MOVEMENT. ESCORTED PATIENT BACK TO BED. NO SIGNS AND SYMPTOMS OF DISTRESS NOTED. WILL CONTINUE TO MONITOR.
[2017-07-30] VITALS: BP 153/78
[2017-07-30] MEDS ORDERED: HYDROmorphone PFS 2 MG/ML SYR ONE ×3 (01:01→17:38)
[2017-07-30] MEDS: HYDROmorphone PFS 2 MG/ML SYR IVP PRN ×3 (01:05→17:40)
[2017-07-30] MEDS: POTASSIUM CHLORIDE 20 MEQ in LACTATED RINGERS 1,000 ML IV SCH ×2 (01:28→16:11)
[2017-07-30 04:00] VITALS: BP 155/76
--- NOTE | 2017-07-30 04:00 | NUR ---
CHECKED ON PATIENT. PATIENT IS ASLEEP. NO SIGNS AND SYMPTOMS OF DISTRESS NOTED. SAFETY PRECAUTIONS IN PLACE. WILL CONTINUE TO MONITOR.
[2017-07-30] MEDS: OCTREOTIDE ACETATE 100 MCG/ML VIAL SUBQ SCH ×3 (04:27→21:18)
[2017-07-30] MEDS: INSULIN LISPRO SLIDING SCALE 100 UNITS/ML VIAL SUBQ PRN ×4 (06:43→21:58)
[2017-07-30] MEDS: BLOOD GLUCOSE MONITORING 1 DEV DEV FS SCH ×4 (06:43→20:53)
--- NOTE | 2017-07-30 07:18 | NUR ---
PATIENT REPORT GIVEN TO MORNING NURSE AT BEDSIDE. PATIENT IS IN STABLE CONDITION
--- NOTE | 2017-07-30 07:20 | NUR ---
RECEIVED PATIENT REPORT AT BEDSIDE FROM NIGHT NURSE. PATIENT IS SLEEPING AND EASILY AROUSABLE TO VOICE, PATIENT IS AAOX3 AND SHOWS NO S/S OF ACUTE DISTRESS ON O2 @ 2L VIA NC. PATIENT DENIES PAIN AND SOB. ON TELE MONITOR. IV NOTED ON THE LEFT HAND WITH IVF'S INFUSING WELL. LEFT LOWER LEG WITH DEPENDENT EDEMA; OTHERWISE SKIN INTACT. PATIENT WAS EXPLAINED HOSPITAL ENVIRONMENT, USING CALL LIGHT FOR ASSISTANCE, AND POC FOR TODAY, PATIENT VERBALIZED UNDERSTANDING. THE BED IS IN LOW POSITION WITH CALL LIGHT WITHIN REACH, FALL AND SAFETY PRECAUTIONS IN PLACE.
[2017-07-30 08:05] VITALS: BP 151/60
[2017-07-30] MEDS ORDERED: SENNA 8.6 MG TAB ONE (08:51)
[2017-07-30] MEDS ORDERED: PANTOPRAZOLE 40 MG INJ VIAL IVP ONE (08:51)
[2017-07-30] MEDS ORDERED: AMYLASE/LIPASE/PROTEASE 1 CAPDR ONE ×3 (08:52→17:30)
[2017-07-30] MEDS: PANTOPRAZOLE 40 MG INJ VIAL IVP SCH ×2 (08:56→21:18)
[2017-07-30] MEDS: SENNA 8.6 MG TAB PO SCH ×2 (08:56→21:18)
[2017-07-30] MEDS: AMYLASE/LIPASE/PROTEASE 1 CAPDR PO SCH ×3 (08:56→17:40)
--- NOTE | 2017-07-30 09:05 | NUR ---
ADMINISTERED SCHEDULED MEDICATIONS. PATIENT SWALLOWED MEDICATIONS WITHOUT DIFFICULTY. ALL NEEDS MET AT THIS TIME. BED IN LOW POSITION WITH CALL LIGHT WITHIN REACH.
[2017-07-30 09:06] LABS: BASOPHILS % (AUTO) 0.7 % (0.0-2.0); EOSINOPHILS # (AUTO) 0.1 K/uL (0-0.4); EOSINOPHILS % (AUTO) 1.9 % (0.0-4.0); HEMATOCRIT 30.8 % (36-52); HEMOGLOBIN 9.7 g/dL (12.0-18.0); LYMPHOCYTES # (AUTO) 0.4 K/uL (2.0-11.5); LYMPHOCYTES % (AUTO) 5.8 % (20.5-51.1); MEAN CORPUSCULAR HEMOGLOBIN 27 pg (27-31); MEAN CORPUSCULAR HGB CONC 32 g/dL (33-37); MEAN CORPUSCULAR VOLUME 86 fL (80-94); MONOCYTES # (AUTO) 0.5 K/uL (0.8-1.0); MONOCYTES % (AUTO) 8.8 % (1.7-9.3); NEUTROPHILS # (AUTO) 5.2 K/uL (1.8-7.7); NEUTROPHILS % (AUTO) 82.8 % (42.2-75.2); PLATELET COUNT (AUTO) 364 K/uL (140-450); RED BLOOD CELL COUNT(AUTO) 3.57 MIL/uL (4.20-6.10); RED CELL DISTRIBUTION WIDTH 13.8 % (11.6-13.7); WHITE BLOOD COUNT (AUTO) 6.2 K/uL (4.8-10.8)
[2017-07-30 09:36] LABS: ANION GAP 7.6 (8-16); CHLORIDE 107 mmol/L (98-107); CREATININE 0.8 mg/dL (0.7-1.3); GLUCOSE 207 mg/dL (74-106); POTASSIUM 3.6 mmol/L (3.5-5.1); SODIUM SERUM 143 mmol/L (136-145); UREA NITROGEN, BLOOD 5 mg/dL (7-18)
[2017-07-30 09:42] LABS: ALBUMIN 1.6 g/dL (3.4-5.0); ASPARTATE AMINOTRANSFERASE 30 U/L (15-37); LIPASE 41 U/L (73-393); TOTAL BILIRUBIN 0.3 mg/dL (0.0-1.0)
--- NOTE | 2017-07-30 10:50 | NUR ---
PATIENT BEING SEEN BY PHYSICAL THERAPY, AFTER AMB WITH 4WW PATIENT O2 SAT ON ROOM AIR IS 94%. PATIENT DENIES PAIN AND SHOWS NO S/S OF ACUTE DISTRESS AT THIS TIME. PATIENT SITTING ON CHAIR NOW. CALL LIGHT WITHIN REACH.
[2017-07-30 12:00] VITALS: BP 142/75
--- NOTE | 2017-07-30 12:20 | NUR ---
ADMINISTERED SCHEDULED MEDICATIONS, PATIENT SWALLOWED WITHOUT DIFFICULTY, PATIENT C/O /10 ABD PAIN AND WAS GIVEN PRN DILAUDID 0.5 MG IVP FOR SEVERE PAIN. PATIENT'S NEEDS MET AT THIS TIME. BED IN LOW POSITION WITH CALL LIGHT WITHIN REACH.
--- NOTE | 2017-07-30 12:23 | NUR ---
CM NOTE PAGED PATIENT FLOW AT [facility] (#[phone]) RE. BED AVAILABILITY. PER MO, CM FOR CARE FIRST, WILLING TO DO JORDAN W/ [facility]. [facility] [facility] (TRANSFER CENTER #[phone]); WILL PUT PATIENT ON TRANSFER LIST IF [facility] DENIES TRANSFER REQUEST. Addendum: 07/30/17 at 1336 by Francesco Olivier RN PATIENT INFORMATION FAXED TO [facility] / FAX# [phone], ATTN: [facility] #[phone]
[2017-07-30] MEDS ORDERED: metroNIDAZOLE 500 MG/NS PREMIX 100 ML IV SCH (13:00)
--- NOTE | 2017-07-30 13:10 | NUR ---
PATIENT SHOWS NO S/S OF ACUTE DISTRESS ON ROOM AIR. PATIENT STATED HIS ABD PAIN IS 2/10 AND TOLERABLE, PATIENT'S NEEDS MET AT THIS TIME. BED IN LOW POSITION WITH CALL LIGHT WITHIN REACH.
--- NOTE | 2017-07-30 14:20 | NUR ---
PATIENT IS SLEEPING AND RESTING COMFORTABLY ON O2 @ 2L VIA NC. BED IN LOW POSITION WITH CALL LIGHT WITHIN REACH.
[2017-07-30 16:00] VITALS: BP 150/80
--- NOTE | 2017-07-30 16:00 | NUR ---
SPOKE WITH DR RAMAN REGARDING POC TO TX TO TERTIARY CARE, DR RAMAN STATED, "CANCEL ORDER, DR PHAN SAID THERE IS NO NEED TO." DR RAMAN ALSO NOTIFIED ABOUT PATIENT'S MAGNESIUM OF 1.[address] RAMAN ORDERED TO HAVE MAGNESIUM 4G IV ONCE. WILL PLACE ORDERS.
--- NOTE | 2017-07-30 16:05 | NUR ---
CM NOTE CONCURRENT REVIEW FAXED TO [facility] / FAX# [phone], ATTN: [place] #[phone]
[2017-07-30] MEDS ORDERED: MAG SULF 2000 MG/WATER PREMIX 100 ML IV SCH (17:00)
[2017-07-30] MEDS ORDERED: MAG SULF 2000 MG/WATER PREMIX 100 ML IV ONE (17:30)
--- NOTE | 2017-07-30 17:40 | NUR ---
ADMINISTERED SCHEDULED MEDICATIONS, PATIENT C/O 04/14 ABD PAIN, ADMINISTERED DILAUDID 0.5 MG IVP PATIENT STATES, " EL DOLOR QUE TENGO ES EL MISMO DEL PRINCIPIO. POR FAVOR AVISE A LOS DOCTORES QUE NO ME PUEDO IR A LA CASA TODAVIA." PATIENT IS CONCERNED HE WILL BE GOING HOME, PATIENT WAS NOTIFIED THEIR IS NO ORDER FOR DISCHARGE TODAY, PATIENT ALSO STATED PAIN IS THE SAME WHEN HE WAS ADMITTED, PATIENT WILL BE GIVEN PAIN MANAGEMENT ORDERED. JAG CHARGE NURSE AWARE OF PATIENT'S CONCERNS. PATIENT'S MAGNESIUM IV ONCE IS INFUSING WELL ON THE LEFT HAND, BLOOD SUGAR WAS 211 AND 4 UNITS OF HUMALOG WAS GIVEN SQ. ALL NEEDS MET AT THIS TIME, BED IN LOW POSITION WITH CALL LIGHT WITHIN REACH.
--- NOTE | 2017-07-30 19:20 | NUR ---
GAVE PATIENT REPORT AT BEDSIDE TO NIGHT NURSE. PATIENT ENDORSED IN STABLE CONDITION.
--- NOTE | 2017-07-30 19:21 | NUR ---
PATIENT REPORT RECEIVED FROM MORNING NURSE AT BEDSIDE. PATIENT IS AWAKE, ALERT, AND ORIENTED. NO SIGNS AND SYMPTOMS OF DISTRESS NOTED. NO COMPLAINTS OF PAIN AT THIS TIME. IV SITE NOTED ON RIGHT HAND, IVF INFUSING WELL. SAFETY PRECAUTIONS IN PLACE. PLAN OF CARE DISCUSSED WITH PATIENT. PATIENT VERBALIZED UNDERSTANDING. BED IN LOWEST POSITION, SIDE RAILS UP AND CALL LIGHT WITHIN REACH. WILL CONTINUE TO MONITOR.
[2017-07-30 20:00] VITALS: BP 148/77
--- NOTE | 2017-07-30 20:00 | NUR ---
RT SAID OK TO PUT PATIENT ON ROOM AIR. PATIENT O2 SAT IS 99%. PATIENT TOLERATING WELL. WILL CONTINUE TO MONITOR.
--- NOTE | 2017-07-30 22:00 | NUR ---
ASSISTED PATIENT TO THE RESTROOM. PATIENT VOIDED AND HAD A BOWEL MOVEMENT. ESCORTED PATIENT BACK TO BED. NO SIGNS AND SYMPTOMS OF DISTRESS NOTED. WILL CONTINUE TO MONITOR.
--- NOTE | 2017-07-30 23:45 | NUR ---
CHECKED ON PATIENT PATIENT IS ASLEEP. NO SIGNS AND SYMPTOMS OF DISTRESS NOTED. BREATHING EVEN AND UNLABORED. BED IN LOWEST POSITION, SIDE RAILS UP AND CALL LIGHT WITHIN REACH. WILL CONTINUE TO MONITOR.
[2017-07-31] VITALS: BP 131/65
--- NOTE | 2017-07-31 02:30 | NUR ---
CHECKED ON PATIENT. PATIENT IS ASLEEP. NO SIGNS AND SYMPTOMS OF DISTRESS NOTED. BED IN LOWEST POSITION, SIDE RAILS UP AND CALL LIGHT WITHIN REACH.
[2017-07-31 04:00] VITALS: BP 147/70
[2017-07-31] MEDS: OCTREOTIDE ACETATE 100 MCG/ML VIAL SUBQ SCH ×3 (04:10→20:49)
[2017-07-31] MEDS: HYDROmorphone PFS 2 MG/ML SYR IVP PRN ×2 (04:27→11:30)
[2017-07-31] MEDS: BLOOD GLUCOSE MONITORING 1 DEV DEV FS SCH ×4 (06:33→20:44)
[2017-07-31] MEDS: INSULIN LISPRO SLIDING SCALE 100 UNITS/ML VIAL SUBQ PRN ×4 (06:34→20:56)
--- NOTE | 2017-07-31 07:16 | NUR ---
PATIENT REPORT GIVEN TO MORNING NURSE AT BEDTIME. PATIENT IS IN STABLE CONDITION
--- NOTE | 2017-07-31 07:17 | NUR ---
RECEIVED REPORT FROM DIRECTOR OF ELEMENTARY EDUCATION NURSE. PATIENT LYING IN BED SLEEPING, AROUSABLE BY VOICE. NO DISTRESS NOTED. DENIES ANY PAIN AT THIS TIME. RESPIRATIONS EVEN, UNLABORED, ON O2 2L/MIN VIA NC. AAOX4, CALM, COOPERATIVE, SKIN COLOR APPROPRIATE TO ETHNICITY, WARM TO TOUCH. SKIN IS INTACT. ABDOMEN SOFT, NON-DISTENDED. LUNGS CTA ON ALL LOBES. REVIEWED PLAN OF CARE WITH PATIENT. PATIENT VERBALIZED UNDERSTANDING. IV SITE INTACT, PATENT, AND INFUSING IVF PER ORDERS. SAFETY MEASURES IN PLACE, CALL LIGHT WITHIN REACH, FALL PREVENTIONS IN PLACE. WILL CONTINUE TO MONITOR.
[2017-07-31 08:00] VITALS: BP 150/83
[2017-07-31] MEDS: AMYLASE/LIPASE/PROTEASE 1 CAPDR PO SCH ×3 (08:53→17:57)
[2017-07-31] MEDS: PANTOPRAZOLE 40 MG INJ VIAL IVP SCH (08:53)
[2017-07-31] MEDS ORDERED: amLODIPine 5 MG TAB PO SCH (09:00)
--- NOTE | 2017-07-31 09:08 | NUR ---
PATIENT SITTING IN BED WATCHING TV. NO DISTRESS NOTED. PAIN WITHIN TOLERABLE AT THIS TIME. WILL REVALUATE WHEN NEXT PAIN MEDICATION DUE AT 1030. SCHEDULED MEDICATIONS DUE GIVEN. SAFETY MEASURES IN PLACE, CALL LIGHT WITHIN REACH. WILL CONTINUE TO MONITOR.
[2017-07-31 09:32] LABS: HEMATOCRIT 32.3 % (36-52); HEMOGLOBIN 10.4 g/dL (12.0-18.0); MEAN CORPUSCULAR HEMOGLOBIN 28 pg (27-31); MEAN CORPUSCULAR HGB CONC 32 g/dL (33-37); MEAN CORPUSCULAR VOLUME 87 fL (80-94); PLATELET COUNT (AUTO) 319 K/uL (140-450); RED BLOOD CELL COUNT(AUTO) 3.72 MIL/uL (4.20-6.10); RED CELL DISTRIBUTION WIDTH 13.7 % (11.6-13.7)
[2017-07-31 09:47] LABS: LYMPHOCYTES % (MANUAL) 6 % (20-46)
[2017-07-31 09:48] LABS: EOSINOPHILS % (MANUAL) 5 % (0-4); MONOCYTES % (MANUAL) 2 % (5-12)
[2017-07-31 09:49] LABS: ALBUMIN 1.7 g/dL (3.4-5.0); ANION GAP 10.1 (8-16); ASPARTATE AMINOTRANSFERASE 35 U/L (15-37); CARBON DIOXIDE 31.2 mmol/L (21-32); CHLORIDE 104 mmol/L (98-107); CREATININE 0.7 mg/dL (0.7-1.3); GLUCOSE 269 mg/dL (74-106); LIPASE 43 U/L (73-393); POTASSIUM 4.3 mmol/L (3.5-5.1); SODIUM SERUM 141 mmol/L (136-145); TOTAL BILIRUBIN 0.4 mg/dL (0.0-1.0); UREA NITROGEN, BLOOD 5 mg/dL (7-18)
--- NOTE | 2017-07-31 09:52 | NUR ---
HAD A REQUEST FROM JENNIE SALDIVARCAREER PLACEMENT SPECIALIST DIRECTOR THAT AC FROM [facility] SAID THIS PATIENT SHOULD BE SET UP WITH OP GI CLINIC, PHONE [phone]. I CALLED THE CLINIC AND SPOKE WITH BERNICE. SHE SAID THEY WOULD NEED AN AUTH FROM THE INSURANCE BEFORE THEY COULD SET UP AN APPOINTMENT. SHE SAID THAT HE COULD BE SET UP WITH THE GI CLINIC AT [facility] AT [address] [facility] [address] [address] [address]. [place] [address] PHONE [phone] FAX [phone]. I CALLED MO AT [facility] AND SHE SAID FOR OUT PATIENT, [facility] I PUT A CALL IN TO HERBERTH AT [employer],[phone] X [phone].
--- NOTE | 2017-07-31 11:48 | NUR ---
RECEIVED A CALL BACK FROM HERBERTH FROM [place] HE SAID THAT HE WILL ARRANGETHE FOLLOW UP FOR GI AND TO SEND HIM A PACKET WITH FACE SHEET, H&P, CONSULTS, XRAYS, ETC TO HIM AT [phone]. [address] RAMAN AND DR. Maverick PHAN. HERBERTH SAID THE FOLLOW UP WOULD NOT BE WITH [facility], THEY DO NOT HAVE A CONTRACT.
[2017-07-31 12:00] VITALS: BP 150/74
--- NOTE | 2017-07-31 12:20 | NUR ---
LATE ENTRY FOR 07/30/17 1340. RECEIVED A CALL FROM AC AT [facility] STATING THAT SHE HAD TALKED TO DR RAMAN WHO SAID THAT PER GI DR PHAN PT NO LONGER REQUIRED TERTIARY TRANSFER BUT DID NEED TO HAVE OUTPATIENT GI FOLLOW UP AND AC PROVIDED PHONE #[phone]. INFORMED HER CM WOULD FOLLOW UP TOMORROW.
[2017-07-31] MEDS: POTASSIUM CHLORIDE 20 MEQ in LACTATED RINGERS 1,000 ML IV SCH (12:23)
--- NOTE | 2017-07-31 12:32 | NUR ---
PATIENT SITTING IN BED WITH LUNCH TRAY IN FRONT. FAMILY MEMBER AT BEDSIDE. PAIN WITHIN TOLERABLE AT THIS TIME. SCHEDULED MEDICATIONS DUE GIVEN. SAFETY MEASURES IN PLACE, CALL LIGHT WITHIN REACH. WILL CONTINUE TO MONITOR.
--- NOTE | 2017-07-31 14:30 | NUR ---
PATIENT LYING IN BED SLEEPING, AROUSABLE BY VOICE. NO DISTRESS NOTED. DENIES ANY PAIN. CONDITION UNCHANGED. SAFETY MEASURES IN PLACE, CALL LIGHT WITHIN REACH. WILL CONTINUE TO MONITOR.
--- NOTE | 2017-07-31 15:29 | NUR ---
07/31/2017 RD INITIAL ASSESSMENT COMPLETED PLEASE REFER TO NUTRITION ASSESSMENT UNDER CARE ACTIVITY FOR ESTIMATED NUTRITIONAL NEEDS. CONTINUE FULL LIQUID DIET UNTIL APPROPRIATE TO ADVANCE ADVANCE TO SOLID TEXTURES TOLERATED OFFER LOW SUGAR FOODS PER PT REQUEST RD TO FOLLOW-UP IN 3-5 DAYS PATIENT IS MODERATE RISK. MAX SOTELO, AURELIO
[2017-07-31 16:00] VITALS: BP 142/62
--- NOTE | 2017-07-31 16:10 | NUR ---
FAXED CONCURRENT REVIEW TO [facility] [phone] PHONE [place] [phone]. CALLED HERBERTH FROM [facility] HE SAID FOR THE GI FOLLOW UP, HE FAXED INFORMATION TO DR. VENEGAS IN [place] FOR REVIEW. HERBERTH SAID HE WOULD CALL [facility] ON THURSDAY ABOUT THE FOLLOW UP.
--- NOTE | 2017-07-31 16:20 | NUR ---
PATIENT SITTING IN BED WATCHING TV AND TALKING WITH FAMILY MEMBER AT BEDSIDE. NO DISTRESS NOTED. DENIES ANY PAIN. CONDITION UNCHANGED. DR. PHAN AT BEDSIDE REVIEWING PLAN OF CARE WITH PATIENT. WILL CONTINUE TO MONITOR.
[2017-07-31] MEDS ORDERED: FUROSEMIDE 20 MG/2 ML VIAL IVP SCH (18:00)
--- NOTE | 2017-07-31 18:04 | NUR ---
PATIENT SITTING IN BED WITH DINNER TRAY. NO DISTRESS NOTED. DENIES ANY PAIN AT THIS TIME. SCHEDULED MEDICATIONS DUE GIVEN. WILL CONTINUE TO MONITOR.
--- NOTE | 2017-07-31 19:30 | NUR ---
GAVE REPORT TO GUN STOCK CHECKER NURSE FOR CONTINUITY OF CARE. PATIENT IN STABLE CONDITION.
--- NOTE | 2017-07-31 19:31 | NUR ---
RECEIVED BEDSIDE REPORT FROM DAY SHIFT NURSE GIOVANNI RN, PT STABLE, NO DISTRESS NOTED, IV TO L HAND 22G SL, PATENT, PT STATED HAVING NO PAIN AT THIS MOMENT, PT ON ROOM AIR, NO SOB, INITIAL ASSESSMENT DONE, ALL SAFETY PRECAUTION MET, WILL CONTINUE TO MONITOR.
[2017-07-31 20:00] VITALS: BP 160/68
[2017-07-31] MEDS: SENNA 8.6 MG TAB PO SCH (20:47)
[2017-08-01] VITALS: BP 147/74
--- NOTE | 2017-08-01 00:01 | NUR ---
PT C/O OF PAIN 7/10 ON THE R UPPER QUADRANT OF THE ABD, PT STATED IV IS PAINFUL WHEN FLUSHED WITH NS, NEW IV INSERTED ON THE R WRIST 22G, PT TOLERATED WELL, PAIN MEDICATION GIVEN, NO DISTRESS NOTED, CALL LIGHT WITHIN REACH.
[2017-08-01] MEDS: HYDROmorphone PFS 2 MG/ML SYR IVP PRN (00:02)
--- NOTE | 2017-08-01 02:14 | NUR ---
CHECKED ON PT, PT SLEEPING, NO DISTRESS NOTED, CALL LIGHT WITHIN REACH, WILL CONTINUE TO MONITOR.
[2017-08-01 04:00] VITALS: BP 139/63
--- NOTE | 2017-08-01 05:05 | NUR ---
DUE MEDICATION GIVEN, PT C/O OF GAS IN THE STOMACH, SIMETHICONE ORDERED GIVEN, PT TOLERATED WELL, NO DISTRESS NOTED, CALL LIGHT WITHIN REACH, WILL CONTINUE TO MONITOR.
[2017-08-01] MEDS: SIMETHICONE 40 MG/0.6 ML PO PRN ×2 (05:08→12:31)
[2017-08-01] MEDS: OCTREOTIDE ACETATE 100 MCG/ML VIAL SUBQ SCH ×3 (05:09→20:42)
[2017-08-01] MEDS: BLOOD GLUCOSE MONITORING 1 DEV DEV FS SCH ×4 (06:25→20:39)
[2017-08-01] MEDS: INSULIN LISPRO SLIDING SCALE 100 UNITS/ML VIAL SUBQ PRN ×2 (06:26→16:25)
--- NOTE | 2017-08-01 07:30 | NUR ---
RECEIVED REPORT FROM GASOLINE SERVICE ATTENDANT RN. PATIENT IS AAOX4, RESPIRATORY EFFORT EVEN AND UNLABORED. NO SIGNS AND SYMPTOMS OF ACUTE DISTRESS NOTED AT THIS TIME. PATIENT HAS IV TO RIGHT WRIST 22G, ON SALINE LOCK AT THIS TIME. SITE IS CLEAN, DRY, PATENT AND INTACT. DISCUSSED PLAN OF CARE WITH PATIENT AND HE VERBALIZED UNDERSTANDING. BED IN LOWEST POSITION, SIDE RAILS UP X2, CALL LIGHT PLACED WITHIN REACH. WILL CONTINUE TO MONITOR.
--- NOTE | 2017-08-01 07:30 | NUR ---
ENDORSED PLAN OF CARE TO DAY SHIFT NURSE SHANTI SALDIVAR, PT STABLE, NO DISTRESS NOTED.
[2017-08-01 07:42] LABS: BASOPHILS % (AUTO) 0.5 % (0.0-2.0); EOSINOPHILS # (AUTO) 0.1 K/uL (0-0.4); HEMATOCRIT 32.3 % (36-52); HEMOGLOBIN 10.8 g/dL (12.0-18.0); LYMPHOCYTES # (AUTO) 0.4 K/uL (2.0-11.5); LYMPHOCYTES % (AUTO) 7.6 % (20.5-51.1); MEAN CORPUSCULAR HEMOGLOBIN 29 pg (27-31); MEAN CORPUSCULAR HGB CONC 33 g/dL (33-37); MEAN CORPUSCULAR VOLUME 86 fL (80-94); MONOCYTES # (AUTO) 0.6 K/uL (0.8-1.0); MONOCYTES % (AUTO) 10.2 % (1.7-9.3); NEUTROPHILS # (AUTO) 4.5 K/uL (1.8-7.7); NEUTROPHILS % (AUTO) 79.7 % (42.2-75.2); PLATELET COUNT (AUTO) 283 K/uL (140-450); RED BLOOD CELL COUNT(AUTO) 3.75 MIL/uL (4.20-6.10); RED CELL DISTRIBUTION WIDTH 13.7 % (11.6-13.7); WHITE BLOOD COUNT (AUTO) 5.6 K/uL (4.8-10.8)
[2017-08-01 07:54] LABS: ANION GAP 9.4 (8-16); CARBON DIOXIDE 33.7 mmol/L (21-32); CHLORIDE 105 mmol/L (98-107); CREATININE 0.8 mg/dL (0.7-1.3); GLUCOSE 174 mg/dL (74-106); POTASSIUM 4.1 mmol/L (3.5-5.1); SODIUM SERUM 144 mmol/L (136-145); UREA NITROGEN, BLOOD 5 mg/dL (7-18)
[2017-08-01 08:00] VITALS: BP 160/78
[2017-08-01] MEDS: amLODIPine 5 MG TAB PO SCH (08:32)
[2017-08-01] MEDS: AMYLASE/LIPASE/PROTEASE 1 CAPDR PO SCH ×3 (08:32→16:19)
[2017-08-01] MEDS: LISINOPRIL 5 MG TAB PO SCH (08:33)
[2017-08-01] MEDS: INSULIN LANTUS 100 UNITS/ML 10 ML VIAL SUBQ SCH (08:35)
[2017-08-01] MEDS ORDERED: oxyCODONE/APAP 5/325 MG 1 TAB TAB PO PRN (08:40)
[2017-08-01 16:00] VITALS: BP 131/72
--- NOTE | 2017-08-01 19:07 | NUR ---
ENDORSED PATIENT TO RETAIL ASSISTANT MANAGER RN FOR CONTINUITY OF CARE. PATIENT IN STABLE CONDITION.
--- NOTE | 2017-08-01 19:08 | NUR ---
RECEIVED BEDSIDE REPORT FROM DAY SHIFT NURSE SHANTI RN, PT STABLE, NO DISTRESS NOTED, IV TO R WRIST 22G SL, PATENT, PT ON ROOM AIR NO SOB NOTED, PT DENIES PAIN, INITIAL ASSESSMENT DONE, ALL SAFETY PRECAUTION MET, WILL CONTINUE TO MONITOR.
[2017-08-01] MEDS: SENNA 8.6 MG TAB PO SCH (20:40)
--- NOTE | 2017-08-01 20:50 | NUR ---
DUE MEDICATION GIVEN, PT TOLERATED WELL, NO DISTRESS NOTED, CALL LIGHT WITHIN REACH, WILL CONTINUE TO MONITOR.
[2017-08-01] MEDS: oxyCODONE/APAP 5/325 MG 1 TAB TAB PO PRN (22:00)
--- NOTE | 2017-08-01 22:00 | NUR ---
PT C/O OF PAIN 4/10 ON THE ABD, PAIN MEDICATION DUE, PT TOLERATED WELL, NO DISTRESS NOTED, CALL LIGHT WITHIN REACH, WILL CONTINUE TO MONITOR.
[2017-08-02] VITALS: BP 128/64
--- NOTE | 2017-08-02 00:05 | NUR ---
CHECKED ON PT, PT AMBULATED TO CHAIR, STATED THAT HE WANTS TO SIT BY THE BEDSIDE FOR A WHILE, NO DISTRESS NOTED, CALL LIGHT WITHIN REACH, WILL CONTINUE TO MONITOR.
--- NOTE | 2017-08-02 00:41 | NUR ---
PT AMBULATED BACK TO BED, NO DISTRESS NOTED, TOLERATED WELL, NO SOB, CALL LIGHT WITHIN REACH, WILL CONTINUE TO MONITOR.
--- NOTE | 2017-08-02 03:15 | NUR ---
CHECKED ON PT, PT SLEEPING, NO DISTRESS NOTED, CALL LIGHT WITHIN REACH, WILL CONTINUE TO MONITOR.
[2017-08-02] MEDS: OCTREOTIDE ACETATE 100 MCG/ML VIAL SUBQ SCH ×3 (05:55→21:33)
[2017-08-02] MEDS: oxyCODONE/APAP 5/325 MG 1 TAB TAB PO PRN ×2 (05:57→15:46)
--- NOTE | 2017-08-02 05:57 | NUR ---
DUE MEDICATION GIVEN, PT C.O OF PAIN 5/10 ON THE ABD, PAIN MEDICATION GIVEN, PT TOLERATED WELL, NO DISTRESS NOTED, CALL LIGHT WITHIN REACH, WILL CONTINUE TO MONITOR.
[2017-08-02] MEDS: BLOOD GLUCOSE MONITORING 1 DEV DEV FS SCH ×4 (06:38→21:42)
--- NOTE | 2017-08-02 07:14 | NUR ---
ASSUMED CONTINUITY OF CARE. NO SIGNS AND SYMPTOMS OF ACUTE DISTRESS NOTICED. INITIAL ASSESSMENT DONE. KEEP COMFORTABLE ON BED. EXPLAINED DIAGNOSIS, PLAN OF CARE, PAIN MANAGEMENT TEACHING, USE OF CALL LIGHT/BED/TV/BATHROOM. VERBALIZED UNDERSTANDING. CALL LIGHT WITHIN REACH.
--- NOTE | 2017-08-02 07:14 | NUR ---
BEDSIDE REPORT GIVEN TO DAY SHIFT NURSE AYESHA MERCADO, ENDORSED PLAN OF CARE, PT STABLE, NO DISTRESS NOTED, CALL LIGHT WITHIN REACH.
[2017-08-02 08:00] VITALS: BP 126/70
--- NOTE | 2017-08-02 08:00 | NUR ---
Patient's Plan of Care was discussed and reviewed with REFRIGERATION INSULATOR: AYESHA
--- NOTE | 2017-08-02 08:02 | NUR ---
DR. RAMAN CAME, REVIEWED CHART.
--- NOTE | 2017-08-02 08:33 | NUR ---
DR. RAMAN WENT INSIDE PT. ROOM AND SPOKE TO PT..
[2017-08-02] MEDS: AMYLASE/LIPASE/PROTEASE 1 CAPDR PO SCH ×3 (08:35→17:40)
[2017-08-02] MEDS: LISINOPRIL 5 MG TAB PO SCH (08:36)
[2017-08-02] MEDS: amLODIPine 5 MG TAB PO SCH (08:36)
[2017-08-02] MEDS: INSULIN LANTUS 100 UNITS/ML 10 ML VIAL SUBQ SCH (08:41)
[2017-08-02 09:17] LABS: ANION GAP 10.2 (8-16); CARBON DIOXIDE 33.4 mmol/L (21-32); CHLORIDE 106 mmol/L (98-107); CREATININE 0.9 mg/dL (0.7-1.3); GLUCOSE 96 mg/dL (74-106); POTASSIUM 3.6 mmol/L (3.5-5.1); SODIUM SERUM 146 mmol/L (136-145); UREA NITROGEN, BLOOD 4 mg/dL (7-18)
[2017-08-02 12:00] VITALS: BP 126/64
[2017-08-02] MEDS: INSULIN LISPRO SLIDING SCALE 100 UNITS/ML VIAL SUBQ PRN (16:23)
--- NOTE | 2017-08-02 18:48 | NUR ---
RESTING ON BED COMFORTABLY. PT. ON BEDSIDE. NO ACUTE DISTRESS NOTED. IN STABLE CONDITION.
--- NOTE | 2017-08-02 19:15 | NUR ---
PATIENT IS CURRENTLY AWAKE ALERT SYRIAC SPEAKING RESTING IN BED NO COMPLAINS OF PAIN OR DISCOMFORT.IV SL TO RT HAND CURRENTLY PATENT PATIENT IS AMBULATORY AND WALKS WELL. CALL LIGHT WITHIN REACH WILL CONTINUE TO MONITOR.
--- NOTE | 2017-08-02 20:00 | NUR ---
Patient's Plan of Care was discussed and reviewed with JESS: ELLY
[2017-08-02 20:18] VITALS: BP 111/56
[2017-08-02] MEDS: SENNA 8.6 MG TAB PO SCH (21:38)
--- NOTE | 2017-08-02 22:03 | NUR ---
PATIENT IS CURRENTLY RESTING IN BED TOOK HIS ROUTINE NIGHT TIME MEDS ALREADY.
--- NOTE | 2017-08-02 23:27 | NUR ---
PATIENT SLEEPING IN BED NO COMPLAINS OF PAIN OR DISCOMFORT.
--- NOTE | 2017-08-02 23:57 | NUR ---
PATIENT IS CURRENTLY RESTING IN BED SLEEPING NO COMPLAINS OF PAIN OR DISCOMFORT NOTED WILL CONTINUE TO MONITOR.
[2017-08-03] VITALS: BP 126/50
--- NOTE | 2017-08-03 02:35 | NUR ---
PATIENT IS CURRENTLY SLEEPING IN HIS ROOM IN NO DISTRESS WILL CONTINUE TO MONITOR.
--- NOTE | 2017-08-03 04:47 | NUR ---
PATIENT IS CURRENTLY STABLE RESTING IN BED IN NO DISTRESS NO COMPLAINS OF PAIN OR DISCOMFORT.WILL CONTINUE TO MONITOR.
[2017-08-03] MEDS: OCTREOTIDE ACETATE 100 MCG/ML VIAL SUBQ SCH (05:36)
[2017-08-03] MEDS: BLOOD GLUCOSE MONITORING 1 DEV DEV FS SCH ×4 (05:36→20:28)
[2017-08-03 06:54] LABS: ANION GAP 10.6 (8-16); CARBON DIOXIDE 33.2 mmol/L (21-32); CHLORIDE 102 mmol/L (98-107); CREATININE 0.8 mg/dL (0.7-1.3); GLUCOSE 109 mg/dL (74-106); POTASSIUM 3.8 mmol/L (3.5-5.1); SODIUM SERUM 142 mmol/L (136-145); UREA NITROGEN, BLOOD 5 mg/dL (7-18)
--- NOTE | 2017-08-03 07:30 | NUR ---
RECEIVED PT REPORT FROM PRESENTATION TEAM MEMBER NURSE. PT IS AAOX4, NO S/S OF DISTRESS NOTED, IV NOTED TO THE L HAND 22G SL, PATENT AND INTACT. PT C/O OF ABD AND BACK PAIN 11/12, WILL MEDICATED SOON. PT ON ROOM AIR, NO SOB, INITIAL ASSESSMENT DONE, ALL SAFETY PRECAUTION MET, WILL CONTINUE TO MONITOR.
--- NOTE | 2017-08-03 07:38 | NUR ---
PATIENT IS CURRENTLY RESTING IN BED REPORT ENDORSED TO YARIEL KAUR.HE WILL RESUME CARE OF THE PATIENT.
[2017-08-03 08:00] VITALS: BP 139/72
[2017-08-03] MEDS: AMYLASE/LIPASE/PROTEASE 1 CAPDR PO SCH ×3 (08:24→17:07)
[2017-08-03] MEDS: oxyCODONE/APAP 5/325 MG 1 TAB TAB PO PRN (08:24)
[2017-08-03] MEDS: amLODIPine 5 MG TAB PO SCH (08:25)
[2017-08-03] MEDS: LISINOPRIL 5 MG TAB PO SCH (08:25)
--- NOTE | 2017-08-03 08:38 | NUR ---
PT REFUSED BREAKFAST. C/O ABD PAIN AND BACK PAIN 12/13. MEDICATED WITH PERCOCET. ENCOURAGED PT TO EAT SNACKS.
[2017-08-03] MEDS: INSULIN LANTUS 100 UNITS/ML 10 ML VIAL SUBQ SCH (09:00)
--- NOTE | 2017-08-03 10:30 | NUR ---
IV G20 INSERTED FOR CT CONTRAST DYE. ONE ATTEMPT, PT TOLERATED WELL.
--- NOTE | 2017-08-03 10:45 | NUR ---
SPOKE TO DR RAMAN OVER THE PHONE. DR RAMAN ORDERED TO CHANGE CT ABD/PELVIS W/WO CONTRAST TO WITHOUT CONTRAST.
--- NOTE | 2017-08-03 13:00 | NUR ---
ENCOURAGED PT TO EAT LUNCH, PT ATE 30% AT THIS TIME. WILL TRY AGAIN LATER. TAUGHT PT TO EAT SMALL AMOUNT AND MORE FREQUENT.
--- NOTE | 2017-08-03 14:04 | NUR ---
PHYSICAL THERAPY CO-SIGN The Physical Therapy Progress Notes documented by Surgical Services Assistant have been reviewed. I CONCUR W/FRONTLOAD DRIVER NOTE; Pt IS PROGRESSING TOWARDS GOALS, CONT PER TX PLAN Reviewed/Co-Signed by: Bia Mcallister, PT Documentation Done by: DAVIS SANCHEZ PTA Addendum: 08/03/17 at 1405 by Bia Mcallister PT Amended: Links added.
--- NOTE | 2017-08-03 14:47 | NUR ---
CM NOTE CONCURRENT REVIEW FAXED TO [facility] / FAX# [phone], ATTN: [place] #[phone]
[2017-08-03 16:00] VITALS: BP 137/61
[2017-08-03] MEDS: oxyCODONE/APAP 5/325 MG 1 TAB TAB PO SCH (17:07)
[2017-08-03] MEDS: INSULIN LISPRO SLIDING SCALE 100 UNITS/ML VIAL SUBQ PRN (18:21)
[2017-08-03] MEDS: ALUMINUM HYD/MAG/SIMETHICONE 30 ML UDC PO PRN (18:41)
--- NOTE | 2017-08-03 19:10 | NUR ---
CALLED DR RAMAN ABOUT CT RESULT. STATED SHE WILL SEE PT TOMORROW MORNING.
--- NOTE | 2017-08-03 19:30 | NUR ---
ENDORSED PT TO CHEMICAL RADIATION TECHNICIAN NURSE FOR CONTINUITY OF CARE. PT IN STABLE CONDITION.
--- NOTE | 2017-08-03 19:31 | NUR ---
RECEIVED HANDOFF REPORT FROM AM RN. PATIENT A&OX4. PATIENT DENIES PAIN. PATIENT SITTING UP IN BED EATING DINNER WITH FAMILY AT BEDSIDE. IV SITE PATENT AND INTACT. NO SIGNS OR SYMPTOMS OF ACUTE DISTRESS NOTED. SAFETY MEASURES ENSURED. CALL LIGHT WITHIN REACH. WILL CONTINUE TO MONITOR.
[2017-08-03] MEDS: SENNA 8.6 MG TAB PO SCH (20:23)
[2017-08-04] VITALS: BP 135/53
[2017-08-04] MEDS: BLOOD GLUCOSE MONITORING 1 DEV DEV FS SCH ×4 (06:37→21:07)
[2017-08-04] MEDS: oxyCODONE/APAP 5/325 MG 1 TAB TAB PO SCH ×2 (06:37→16:16)
[2017-08-04] MEDS: INSULIN LISPRO SLIDING SCALE 100 UNITS/ML VIAL SUBQ PRN (06:38)
--- NOTE | 2017-08-04 07:24 | NUR ---
ENDORSED PLAN OF CARE TO AM RN. PATIENT IN STABLE CONDITION.
--- NOTE | 2017-08-04 07:25 | NUR ---
RECEIVED PT REPORT FROM GLOBAL IMPLEMENTATION MANAGER NURSE. PT IS SLEEPING, NO S/S OF DISTRESS NOTED, IV ON L HAND 22G SL, PATENT AND INTACT. PT ON ROOM AIR, NO SOB, INITIAL ASSESSMENT DONE, ALL SAFETY PRECAUTION MET, CALL LIGHT WITHIN REACH, WILL CONTINUE TO MONITOR.
[2017-08-04 08:00] VITALS: BP 141/65
[2017-08-04] MEDS: ALUMINUM HYD/MAG/SIMETHICONE 30 ML UDC PO PRN (08:08)
[2017-08-04] MEDS: amLODIPine 5 MG TAB PO SCH (08:08)
[2017-08-04] MEDS: LISINOPRIL 5 MG TAB PO SCH (08:08)
[2017-08-04] MEDS: AMYLASE/LIPASE/PROTEASE 1 CAPDR PO SCH ×3 (08:08→17:30)
--- NOTE | 2017-08-04 08:11 | NUR ---
FAXED CONCURRENT REVIEW TO [facility] [phone] PHONE [place] [phone] CALLED [employer],([facility]) AND LEFT MESSAGE WITH HERBERTH ABOUT FOLLOW UP APPOINTMENT WITH ARIELLA. [phone] [id number]
[2017-08-04] MEDS: INSULIN LANTUS 100 UNITS/ML 10 ML VIAL SUBQ SCH (09:09)
--- NOTE | 2017-08-04 09:15 | NUR ---
DR. RAMAN IN TO SEE THE PATIENT. UPDATED PATIENT WITH PLAN OF CARE. PATIENT VERBALIZED UNDERSTANDING. SAFETY PRECAUTIONS IN PLACE, BED ALARM ON, BED ON LOWEST SETTING, CALL LIGHT WITHIN REACH. WILL CONTINUE TO MONITOR PATIENT.
[2017-08-04] MEDS ORDERED: ALUMINUM HYD/MAG/SIMETHICONE 30 ML UDC PO PRN (09:25)
--- NOTE | 2017-08-04 09:29 | NUR ---
RECEIVED AN REFERRAL AUTHORIZATION FROM [facility] FOR THIS PATIENT TO SEE DR ALVA, FOR GI FOLLOW UP. THEY REQUESTED COPY OF ANY XRAYS, LABORATORY REPORT AND THIS REFERRAL TO GO WITH HIM TO THE APPOINTMENT. I SPOKE WITH HARESH FROM MEDICAL RECORDS AND SHE TOOK A COPY OF THE REFERRAL AND WILL SEN THE MEDICAL RECORDS REQUESTED. I RECEIVED A CALL FROM RENETTA FROM THE CM DEPARTMENT AT [facility] AND HE SAID THAT THE DOCTOR'S OFFICE WILL CALL HIM WITH THE APPOINTMENT.
--- NOTE | 2017-08-04 10:32 | NUR ---
I CALLLED DR. MAI'S OFFICE, [phone] AND SPOKE WITH PRINCE. THE EARLIEST APPOINTMENT WAS August AT 8:30P.M. I TOOK THE APPOINTMENT.
[2017-08-04 10:43] LABS: BASOPHILS # (AUTO) 0.1 K/uL (0.00-0.22); BASOPHILS % (AUTO) 0.8 % (0.0-2.0); EOSINOPHILS # (AUTO) 0.1 K/uL (0-0.4); HEMATOCRIT 33.6 % (36-52); LYMPHOCYTES % (AUTO) 9.4 % (20.5-51.1); MEAN CORPUSCULAR HEMOGLOBIN 28 pg (27-31); MEAN CORPUSCULAR HGB CONC 33 g/dL (33-37); MEAN CORPUSCULAR VOLUME 87 fL (80-94); MONOCYTES # (AUTO) 0.8 K/uL (0.8-1.0); MONOCYTES % (AUTO) 7.9 % (1.7-9.3); NEUTROPHILS # (AUTO) 8.3 K/uL (1.8-7.7); NEUTROPHILS % (AUTO) 80.9 % (42.2-75.2); PLATELET COUNT (AUTO) 331 K/uL (140-450); RED BLOOD CELL COUNT(AUTO) 3.88 MIL/uL (4.20-6.10); RED CELL DISTRIBUTION WIDTH 13.8 % (11.6-13.7); WHITE BLOOD COUNT (AUTO) 10.3 K/uL (4.8-10.8)
[2017-08-04 11:20] LABS: CHLORIDE 105 mmol/L (98-107); POTASSIUM 3.8 mmol/L (3.5-5.1); SODIUM SERUM 145 mmol/L (136-145)
[2017-08-04 11:21] LABS: ANION GAP 14.4 (8-16); CARBON DIOXIDE 29.4 mmol/L (21-32); CREATININE 0.9 mg/dL (0.7-1.3); GLUCOSE 143 mg/dL (74-106); UREA NITROGEN, BLOOD 10 mg/dL (7-18)
--- NOTE | 2017-08-04 13:35 | NUR ---
PHYSICAL THERAPY WITH PATIENT.
--- NOTE | 2017-08-04 15:25 | NUR ---
PATIENT RESTING. NO SIGNS OR SYMPTOMS OF DISTRESS. SAFETY PRECAUTIONS IN PLACE, BED ON LOWEST SETTING, CALL LIGHT WITHIN REACH, WILL CONTINUE TO MONITOR PATIENT.
[2017-08-04] MEDS ORDERED: TPN PER PHARMACY MC PRN (15:30)
--- NOTE | 2017-08-04 15:53 | NUR ---
PHYSICAL THERAPY CO-SIGN The Physical Therapy Progress Notes documented by Manager Of Tires Sales have been reviewed. Reviewed/Co-Signed by: Sebastian Navarrete PT Documentation Done by: DAVIS SANCHEZ PTA PT PROGRESSING STEADILY TOWARDS REHAB GOALS Addendum: 08/04/17 at 1554 by Sebastian Navarrete PT Amended: Links added.
[2017-08-04 16:00] VITALS: BP 153/67
[2017-08-04] MEDS: POTASSIUM CHL 10 MEQ/D5-1/2NS 1,000 ML IV SCH (16:16)
--- NOTE | 2017-08-04 17:15 | NUR ---
PATIENT RESTING, AT BEDSIDE. NO SIGNS OR SYMPTOMS OF DISTRESS. SAFETY PRECAUTIONS IN PLACE, BED ON LOWEST SETTING, CALL LIGHT WITHIN REACH, WILL CONTINUE TO MONITOR PATIENT.
[2017-08-04] MEDS: METOCLOPRAMIDE 10 MG TAB PO SCH (17:30)
--- NOTE | 2017-08-04 19:21 | NUR ---
REPORT GIVEN TO PERL DEVELOPER NURSE AT BEDSIDE FOR CONTINUITY OF CARE. PATIENT IN STABLE CONDITION.
--- NOTE | 2017-08-04 19:22 | NUR ---
Patient's Plan of Care was discussed and reviewed with ASSISTANT MEN'S LACROSSE COACH: RADHA MEEHAN
--- NOTE | 2017-08-04 19:22 | NUR ---
RECD. RESTING IN BED, AWAKE, A/OX4. RESPIRATION EVEN AND UNLABORED. IV OF D51/2 NS +10 MEQ KCL INFUSING AT 70ML/HR, RIGHT FOREARM G22. SALINE LOCK G22 AT THE LEFT FOREARM G22, PATENT AND INTACT. ABDOMEN SOFT, NON-TENDER WITH HYPOACTIVE BOWEL SOUNDS. PLAN OF CARE FOR THE SHIFT DISCUSSED. CALL LIGHT GIVEN AND INSTRUCTED TO CALL NURSE WHENEVER NEEDING HELP. VERBALIZED UNDERSTANDING. DENIES PAIN 0/10.
[2017-08-04] MEDS: PANTOPRAZOLE 40 MG INJ VIAL IVP SCH (20:48)
[2017-08-04] MEDS: SENNA 8.6 MG TAB PO SCH (21:08)
--- NOTE | 2017-08-04 21:08 | NUR ---
DUE PO MEDICATION GIVEN, REFUSED CRACKERS AND MILK FOR SNACK, STATED MAKE HIM GASSY, BLOATED. GELATIN GIVEN.
--- NOTE | 2017-08-04 23:30 | NUR ---
REMINDED NPO PAST MIDNIGHT FOR EGD IN AM. VERBALIZED UNDERSTANDING.
[2017-08-05] VITALS: BP 116/70
--- NOTE | 2017-08-05 04:00 | NUR ---
SLEEPING COMFORTABLY IN BED.
[2017-08-05] MEDS: BLOOD GLUCOSE MONITORING 1 DEV DEV FS SCH ×3 (05:55→18:58)
[2017-08-05] MEDS: POTASSIUM CHL 10 MEQ/D5-1/2NS 1,000 ML IV SCH (05:56)
[2017-08-05] MEDS: oxyCODONE/APAP 5/325 MG 1 TAB TAB PO SCH ×2 (06:07→16:00)
[2017-08-05] MEDS: METOCLOPRAMIDE 10 MG TAB PO SCH ×3 (06:07→16:30)
[2017-08-05 06:27] LABS: BASOPHILS % (AUTO) 0.7 % (0.0-2.0); EOSINOPHILS # (AUTO) 0.2 K/uL (0-0.4); EOSINOPHILS % (AUTO) 2.5 % (0.0-4.0); HEMATOCRIT 30.2 % (36-52); HEMOGLOBIN 9.7 g/dL (12.0-18.0); LYMPHOCYTES # (AUTO) 0.8 K/uL (2.0-11.5); LYMPHOCYTES % (AUTO) 11.3 % (20.5-51.1); MEAN CORPUSCULAR HEMOGLOBIN 28 pg (27-31); MEAN CORPUSCULAR HGB CONC 32 g/dL (33-37); MEAN CORPUSCULAR VOLUME 87 fL (80-94); MONOCYTES # (AUTO) 0.7 K/uL (0.8-1.0); MONOCYTES % (AUTO) 10.2 % (1.7-9.3); NEUTROPHILS # (AUTO) 5.1 K/uL (1.8-7.7); NEUTROPHILS % (AUTO) 75.3 % (42.2-75.2); PLATELET COUNT (AUTO) 272 K/uL (140-450); RED BLOOD CELL COUNT(AUTO) 3.46 MIL/uL (4.20-6.10); RED CELL DISTRIBUTION WIDTH 14.3 % (11.6-13.7); WHITE BLOOD COUNT (AUTO) 6.8 K/uL (4.8-10.8)
--- NOTE | 2017-08-05 06:30 | NUR ---
CONDITION REMAIN STABLE. ABLE TO SLEPT WELL. WILL ENDORSE TO AM NURSE FOR CONTINUITY OF CARE.
--- NOTE | 2017-08-05 07:15 | NUR ---
ENDORSED TO YARIEL HAHN FOR CONTINUITY OF CARE.
[2017-08-05 07:58] LABS: ALBUMIN 1.9 g/dL (3.4-5.0); ANION GAP 11.2 (8-16); ASPARTATE AMINOTRANSFERASE 23 U/L (15-37); CARBON DIOXIDE 30.3 mmol/L (21-32); CHLORIDE 107 mmol/L (98-107); CHOL/HDL RATIO 2.6 (1-4.5); GLUCOSE 166 mg/dL (74-106); HDL CHOLESTEROL 51 mg/dL (40-60); LDL (CALC) 59 mg/dL (60-100); MAGNESIUM 1.8 mg/dL (1.8-2.4); PHOSPHORUS 2.6 mg/dL (2.5-4.9); POTASSIUM 3.5 mmol/L (3.5-5.1); SODIUM SERUM 145 mmol/L (136-145); TOTAL BILIRUBIN 0.4 mg/dL (0.0-1.0); TRIGLYCERIDES 112 mg/dL (30-150); UREA NITROGEN, BLOOD 8 mg/dL (7-18)
[2017-08-05 08:00] VITALS: BP 135/59
[2017-08-05] MEDS: AMYLASE/LIPASE/PROTEASE 1 CAPDR PO SCH ×3 (08:00→17:00)
[2017-08-05 08:27] LABS: CREATININE 0.8 mg/dL (0.7-1.3)
[2017-08-05] MEDS: INSULIN LANTUS 100 UNITS/ML 10 ML VIAL SUBQ SCH (09:00)
[2017-08-05] MEDS: LISINOPRIL 5 MG TAB PO SCH (09:00)
[2017-08-05] MEDS: PANTOPRAZOLE 40 MG INJ VIAL IVP SCH ×2 (09:00→21:21)
[2017-08-05] MEDS: amLODIPine 5 MG TAB PO SCH (09:00)
--- NOTE | 2017-08-05 09:34 | NUR ---
PER CARSON HOLLY RN, MORNING MEDICATIONS WILL BE HELD D/T EGD WITH NJ PLACEMENT PROCEDURE. PATIENT IN STABLE CONDITION, RESPIRATIONS EVEN AND UNLABORED. NO SIGNS OF SYMPTOMS OF DISTRESS NOTED. PATIENT DENIES PAIN. PATIENT HAS BEEN INFORMED OF PROCEDURE AT 10:00. CONSENT FOR PROCEDURE IN THE CHART. SAFETY PRECAUTIONS IN PLACE, CALL LIGHT WITHIN REACH, WILL CONTINUE TO MONITOR PATIENT.
[2017-08-05] MEDS ORDERED: diphenhydrAMINE 50 MG/ML VIAL ONE (09:40)
[2017-08-05] MEDS ORDERED: fentaNYL 0.05 MG/ML VIAL ONE (09:40)
[2017-08-05] MEDS ORDERED: MIDAZOLAM 2 MG/2 ML VIAL ONE (09:40)
--- NOTE | 2017-08-05 09:50 | NUR ---
2 OR NURSES CAME AND TOOK PATIENT TO HIS EGD WI TH NJ PLACEMENT PROCEDURE.
[2017-08-05] MEDS ORDERED: MIDAZOLAM 2 MG/2 ML VIAL IVP ONE (10:30)
[2017-08-05] MEDS ORDERED: fentaNYL 0.05 MG/ML VIAL IVP ONE (10:30)
[2017-08-05 10:45] VITALS: BP 131/65
--- NOTE | 2017-08-05 12:40 | NUR ---
PATIENT RETURNED TO FLOOR VIA BED, ACCOMPANIED BY 2 OR NURSES. REPORT GIVEN AT BEDSIDE. PATIENT DROWSY BUT AROUSABLE, ON ROOM AIR, BREATHING EVEN AND UNLABORED. DENIES PAIN. SAFETY PRECAUTIONS IN PLACE, BED IN LOWEST SETTING, CALL LIGHT WITHIN REACH, WILL CONTINUE TO MONITOR PATIENT.
--- NOTE | 2017-08-05 13:00 | NUR ---
PHYSICAL THERAPY CO-SIGN The Physical Therapy Progress Notes documented by Head Char Filter Tank Tender have been reviewed. I CONCUR W/COLLEGE PHYSICS INSTRUCTOR NOTE Reviewed/Co-Signed by: Bia Mcallister PT Documentation Done by:DAVIS SANCHEZ PTA Addendum: 08/06/17 at 0802 by Bia Mcallister PT Amended: Links added.
--- NOTE | 2017-08-05 14:37 | NUR ---
08/05/17 RD FOLLOW UP COMPLETED. PLEASE REFER TO NUTRITION PROGRESS NOTE UNDER CARE ACTIVITY FOR ESTIMATED NUTRITION NEEDS. 1.CONTINUE NPO STATUS MEDICALLY APPROPRIATE. 2.ADVANCE DIET TOLERATED ONCE MEDICALLY CLEARED FOR PO INTAKE. 3.OFFER LOW SUGAR FOODS PER PT REQUEST. RD TO FOLLOW-UP 2-3DAYS, HIGH RISK MAX SOTELO RD
--- NOTE | 2017-08-05 14:50 | NUR ---
PATIENT RESTING IN BED, NO SIGNS OF DISTRESS OR SOB NOTED. SAFETY PRECAUTION IN PLACE, CALL LIGHT WITHIN REACH. WILL CONTINUE TO MONITOR PATIENT.
[2017-08-05 16:00] VITALS: BP 146/69
--- NOTE | 2017-08-05 16:23 | NUR ---
FAXED CONCURRENT REVIEW TO [facility] [phone] PHONE [place] [phone] SPOKE WITH MO EARLIER TODAY ABOUT PLAN OF CARE. I CALLED DR. RAMAN AND SHE SAID TO CALL DR. Maverick PHAN. I CALLED DR. Edwin PHAN AND LEFT A MESSAGE FOR HIM TO CALL DR. AMANDA. HAD A REFERRAL FOR OUT PATIENT FOLLOW UP WITH DR. Nba MAI IF DISCHARGED. AUTH GIVEN BY [facility]. I WAS INFORMED BY LEORA FROM [facility] THAT OF 08/06/17 THE IPA WILL BE [facility]. I CALLED [facility] AND SPOKE WITH ALIYAH. SHE SAID THEY ARE CONTRACTED WITH DR. Krupa MIA, BUT THEY WOULD HAVE TO GIVE THEIR AUTH FOR FOLLOW UP WITH DR. MAI. I INFORMED DEB, STRATEGY ASSOCIATE THAT OF 08/06/17 THE IPA WOULD BE [facility].
--- NOTE | 2017-08-05 18:40 | NUR ---
TUBE FEEDING DIABETISOURCE @ 30ML/HR STARTED THROUGH PATIENT'S NJ TUBE. 0 ML RESIDUAL, PLACEMENT HEARD. PATIENT TOLERATED IT WELL. SAFETY PRECAUTION IN PLACE, CALL LIGHT WITHIN REACH. WILL CONTINUE TO MONITOR PATIENT.
--- NOTE | 2017-08-05 19:25 | NUR ---
REPORT GIVEN TO EARTH MOVING TECHNICIAN NURSE AT BEDSIDE FOR CONTINUITY OF CARE. PATIENT IN STABLE CONDITION.
--- NOTE | 2017-08-05 19:30 | NUR ---
ASSUMED CARE OF PATIENT, AWAKE, ALERT AND ORIENTED. NO COMPLAINS. CALL LIGHT WITHIN REACH.
[2017-08-05] MEDS ORDERED: DEXTROSE 50% 600 ML, AMINO ACIDS 8.5% 600 ML IV SCH ×2 (20:00)
[2017-08-05] MEDS ORDERED: POTASSIUM CHL 10 MEQ/D5-1/2NS 1,000 ML IV SCH (21:00)
--- NOTE | 2017-08-05 21:00 | NUR ---
HOB ELEVATED AT ALL TIME. PLAN OF CARE DISCUSSED WITH PATIENT, VERBALIZED UNDERSTANDING WELL. DUE MEDS GIVEN. CALL LIGHT WITHIN REACH.
[2017-08-05] MEDS ORDERED: MORPHINE SULFATE 2 MG/ML SYR IVP PRN (21:20)
[2017-08-05] MEDS: SENNA 8.6 MG TAB PO SCH (21:21)
[2017-08-05 23:44] VITALS: BP 141/56
--- NOTE | 2017-08-06 | NUR ---
VITAL SIGNS STABLE, AFEBRILE. ASLEEP NO COMPLAINS. CALL LIGHT WITHIN REACH. MINIMAL RESIDUAL NOTED.
[2017-08-06] MEDS: BLOOD GLUCOSE MONITORING 1 DEV DEV FS SCH ×4 (00:20→17:43)
[2017-08-06] MEDS: INSULIN LISPRO SLIDING SCALE 100 UNITS/ML VIAL SUBQ PRN ×4 (00:24→17:56)
[2017-08-06 06:17] LABS: ANION GAP 11.7 (8-16); CARBON DIOXIDE 28.9 mmol/L (21-32); CHLORIDE 108 mmol/L (98-107); CREATININE 0.7 mg/dL (0.7-1.3); GLUCOSE 230 mg/dL (74-106); POTASSIUM 3.6 mmol/L (3.5-5.1); SODIUM SERUM 145 mmol/L (136-145); UREA NITROGEN, BLOOD 7 mg/dL (7-18)
[2017-08-06 06:27] LABS: MAGNESIUM 1.8 mg/dL (1.8-2.4); PHOSPHORUS 3.1 mg/dL (2.5-4.9)
[2017-08-06] MEDS: oxyCODONE/APAP 5/325 MG 1 TAB TAB PO SCH (06:43)
--- NOTE | 2017-08-06 07:27 | NUR ---
ENDORSED CARE AT BEDSIDE WITH MUÑOZ RN, PATIENT IN STABLE CONDITION.
--- NOTE | 2017-08-06 07:27 | NUR ---
RECEIVED REPORT FROM MAMMOGRAPHY TECHNOLOGIST RN. PATIENT IS AAOX4, RESPIRATORY EFFORT IS EVEN AND UNLABORED. PATIENT HAS NASAL TUBE, FEEDING AT 30 ML. TOLERATING WELL. NO SIGNS AND SYMTPOMS OF ACUTE DISTRESS NOTED AT THIS TIME. DISCUSSED PLAN OF CARE WITH PATIENT. HE VERBALIZED UNDERSTANDING. BED IN LOWEST POSITION, SIDE RAILS UP X2, CALL LIGHT PLACED WITHIN REACH. WILL CONTINUE TO MONITOR.
[2017-08-06 08:00] VITALS: BP 131/60
[2017-08-06] MEDS: amLODIPine 5 MG TAB PO SCH (08:30)
[2017-08-06] MEDS: AMYLASE/LIPASE/PROTEASE 1 CAPDR PO SCH ×3 (08:30→17:42)
[2017-08-06] MEDS: PANTOPRAZOLE 40 MG INJ VIAL IVP SCH (08:30)
[2017-08-06] MEDS: METOCLOPRAMIDE 10 MG TAB PO SCH ×3 (08:30→16:30)
[2017-08-06] MEDS: LISINOPRIL 5 MG TAB PO SCH (08:30)
[2017-08-06] MEDS: INSULIN LANTUS 100 UNITS/ML 10 ML VIAL SUBQ SCH (08:47)
--- NOTE | 2017-08-06 14:10 | NUR ---
CM NOTE CONCURRENT REVIEW FAXED TO [facility] (FAX# [phone], ATTN: LEORA #[phone]) AND [facility] (FAX# [phone], ATTN: ALIYAH # [phone])
--- NOTE | 2017-08-06 15:20 | NUR ---
INCREASED FEEDING TO 50 ML PER DOCTOR SYLVESTER'S ORDER. PATIENT TOLERATING WELL.
[2017-08-06 16:00] VITALS: BP 138/63
--- NOTE | 2017-08-06 19:23 | NUR ---
ENDORSED PATIENT TO CLERICAL ASSISTANT NURSE FOR CONTINUITY OF CARE. PATIENT IN STABLE CONDITION.
--- NOTE | 2017-08-06 19:24 | NUR ---
PATIENT RESTING IN BED AT THIS TIME DENIES PAIN NEEDS MET. TF INFUSING WELL.IVF INFUSING WELL NEEDS MET WILL CONTINUE TO MONITOR PATIENT CONTINUES TO VOID IN THE URINAL.CALL LIGHT WITHIN REACH.
[2017-08-06 20:00] VITALS: BP 145/67
[2017-08-06] MEDS: SENNA 8.6 MG TAB PO SCH (20:57)
--- NOTE | 2017-08-06 20:57 | NUR ---
PATIENT GOT HIS MEDICATION AND VERBALIZES UNDERSTANDING FOR TAKING HIS MEDICATIONS. PATIENT STABLE. CALL LIGHT WITHIN REACH.
--- NOTE | 2017-08-06 21:00 | NUR ---
Patient's Plan of Care was discussed and reviewed with RESEARCH METHODOLOGIST: VERNA SANABRIA
--- NOTE | 2017-08-06 23:30 | NUR ---
PATIENT SLEEPING IN BED.CALL LIGHT WITHIN REACH.
--- NOTE | 2017-08-07 00:55 | NUR ---
PATIENT IS CURRENTLY SITTING UP IN BED PATIENT ACCUCHECK WAS DONE AND PATIENT ALSO COMPLAINS OF MODERATE PAIN TO ABDOMEN I WILL MEDICATE WITH NORCO ORDERED WILL CONTINUE TO MONITOR.CALL LIGHT WITHIN REACH.
[2017-08-07] MEDS: BLOOD GLUCOSE MONITORING 1 DEV DEV FS SCH ×5 (00:56→23:39)
[2017-08-07] MEDS: INSULIN LISPRO SLIDING SCALE 100 UNITS/ML VIAL SUBQ PRN ×3 (00:58→23:39)
[2017-08-07] MEDS: HYDROcodone/APAP 5/325 MG 1 TAB TAB PO PRN ×2 (01:01→06:19)
--- NOTE | 2017-08-07 02:35 | NUR ---
PATIENT SLEEPING IN BED NEEDS MET WILL CONTINUE TO MONITOR CALL LIGHT WITHIN REACH.
--- NOTE | 2017-08-07 03:29 | NUR ---
PATIENT IS CURRENTLY RESTING IN BED SLEEPING.IVF INFUSING WELL TF PATENT.
[2017-08-07 05:20] VITALS: BP 132/63
[2017-08-07] MEDS: METOCLOPRAMIDE 10 MG TAB PO SCH ×3 (06:19→17:43)
[2017-08-07 06:28] LABS: ANION GAP 11.9 (8-16); CARBON DIOXIDE 28.8 mmol/L (21-32); CHLORIDE 108 mmol/L (98-107); CREATININE 0.8 mg/dL (0.7-1.3); GLUCOSE 146 mg/dL (74-106); POTASSIUM 3.7 mmol/L (3.5-5.1); SODIUM SERUM 145 mmol/L (136-145); UREA NITROGEN, BLOOD 7 mg/dL (7-18)
[2017-08-07 06:31] LABS: MAGNESIUM 1.8 mg/dL (1.8-2.4); PHOSPHORUS 3.1 mg/dL (2.5-4.9)
--- NOTE | 2017-08-07 07:15 | NUR ---
RECEIVED REPORT FROM LIBERAL ARTS TEACHER RN. PATIENT IS AAOX4, RESPIRATORY EFFORT IS EVEN AND UNLABORED. PATIENT HAS NASAL TUBE, FEEDING AT 50 ML. TOLERATING WELL. NO SIGNS AND SYMTPOMS OF ACUTE DISTRESS NOTED AT THIS TIME. DISCUSSED PLAN OF CARE WITH PATIENT. HE VERBALIZED UNDERSTANDING. BED IN LOWEST POSITION, SIDE RAILS UP X2, CALL LIGHT PLACED WITHIN REACH. WILL CONTINUE TO MONITOR.
[2017-08-07 08:00] VITALS: BP 139/68
[2017-08-07] MEDS: AMYLASE/LIPASE/PROTEASE 1 CAPDR PO SCH ×3 (09:03→17:44)
[2017-08-07] MEDS: LISINOPRIL 5 MG TAB PO SCH (09:03)
[2017-08-07] MEDS: amLODIPine 5 MG TAB PO SCH (09:03)
[2017-08-07] MEDS: INSULIN LANTUS 100 UNITS/ML 10 ML VIAL SUBQ SCH (09:07)
--- NOTE | 2017-08-07 12:00 | NUR ---
PATIENT TOLERATED HIS SOUP WELL, STATED THAT HE HAS NO PAIN.
--- NOTE | 2017-08-07 12:33 | NUR ---
LATE ENTRY FOR 08/06/17 1145 MET WITH PT AND SPOUSE AT BEDSIDE WITH ASSIGNED NURSE SHANTI WHO ASSISTED WITH INTERPRETATION PT/SPOUSE INDICATED THAT THEIR MALTESE WAS LIMITED. DISCUSSED OPTIONS FOR DISCHARGE SINCE PT WILL CONTINUE TO REQUIRE FEEDING TUBE. SNF VS HOME WITH HOME HEALTH. EXPLAINED THAT HOME HEALTH NURSING IS INTERMITTENT AND THAT PT/FAMILY WOULD BE TAUGHT HOW TO ADMINISTER FEEDING AND MAINTAIN TUBE AND DID ADVISE THAT SNF MAY BE A BETTER OPTION AT THIS TIME AND IF THEY OPTED THEY COULD BE TAUGHT NJ FEEDING AND CARE AT THE SNF. PT/SPOUSE DID SAY THEY WOULD BE IN AGREEMENT TO SNF. INFORMED THEM THAT I WOULD PROVIDE A LIST OF CONTRACTED SNFS PRIOR TO DISCHARGE.
--- NOTE | 2017-08-07 14:10 | NUR ---
PHYSICAL THERAPY CO-SIGN The Physical Therapy Progress Notes documented by Cracking And Fanning Machine Operator have been reviewed. I concur with the documentation of this SSRS REPORT DEVELOPER. Plan: continue as per plan of care if he remains in this hospital. Reviewed/Co-Signed by: Bia Mcallister DPT Documentation Done by: Lizeth Amor PTA Addendum: 08/08/17 at 0812 by Bia Mcallister PT Amended: Links added.
--- NOTE | 2017-08-07 14:30 | NUR ---
PATIENT STATED THAT HE STILL DOESN'T HAVE ANY STOMACH PAIN.
--- NOTE | 2017-08-07 14:35 | NUR ---
FAXED CONCURRENT REVIEW TO [facility] [phone] PHONE [place] [phone] FAXED CONCURRENT REVIEW TO [facility] [phone] PHONE ALIYAH [phone]
--- NOTE | 2017-08-07 15:06 | NUR ---
SPOKE WITH ALIYAH FROM [employer], ABOUT POSSIBILITY OF PATIENT GOING HOME RATHER THAN GOING TO SNF. SHE SAID IF PATIENT GOES HOME, FOR THE HOME HEALTH, CALL [facility] AT [phone] TO ARRANGE THE HOME HEALTH. I ALSO REMINDED ALIYAH THAT AT PRESENT THIS PATIENT HAS AN APPOINTMENT WITH DR. Nba MAI FOR Thursday08/14/17 AND THE AUTH WAS GIVEN BY [employer] ([employer] [employer] AND THAT HE WOULD NEED A NEW AUTH BY [facility].
--- NOTE | 2017-08-07 15:52 | NUR ---
08/07/17 RD FOLLOW UP COMPLETED. PLEASE REFER TO NUTRITION ASSESSMENT UNDER CARE ACTIVITY FOR ESTIMATED NUTRITIONAL NEEDS. CONTINUE FULL LIQUID DIET AND J-TUBE FEEDS FOR NUTIRTION SUPPORT ADVANCE DIET TO LOW FAT, REGULAR TEXTURES TOLERATED RD TO FOLLOW-UP IN 2-3DAYS, HIGH RISK MAX SOTELO, RD
[2017-08-07 16:00] VITALS: BP 128/55
--- NOTE | 2017-08-07 19:30 | NUR ---
ENDORSED PATIENT TO MANAGER ACQUISITION RN FOR CONTINUITY OF CARE. PATIENT IN STABLE CONDITION.
--- NOTE | 2017-08-07 19:40 | NUR ---
RECEIVED REPORT FROM AM NURSE. PT RESTING COMFORTABLY, AOX4, AMBULATORY WITH GEN WEAKNESS, ABLE TO VERBALIZE NEEDS. NASOJEJUNUM TUBE TO L NARE, TUBE FEEDING ADMINISTERING WELL AT 50ML/HR, RESIDUAL 1ML. PT DENIES NAUSEA/VOMITING. PT ABD DENIES PAIN, REPORTS SLIGHT TENDERNESS ON PALPATION OF ABD. IV ACCESS ASYMPTOMATIC, PATENT AND INTACT. SALINE LOCKED. DISCUSSED AND REVIEWED PLAN OF CARE WITH PT, PT STATED OK. ALL NEEDS MET. SAFETY MEASURES ENSURED. CALL LIGHT WITHIN REACH.
[2017-08-07 20:00] VITALS: BP 130/62
[2017-08-07] MEDS: SENNA 8.6 MG TAB PO SCH (20:38)
--- NOTE | 2017-08-07 20:40 | NUR ---
ADMINISTERED DUE MED SENNA PO WITH EDUCATION. PT VERBALIZED UNDERSTANDING. PT IS ON FULL LIQUID DIET, ABLE TO SWALLOW MEDICATION WELL. TUBE FEEDING INFUSING WELL. ALL NEEDS MET. SAFETY MEASURES ENSURED. CALL LIGHT WITHIN REACH.
--- NOTE | 2017-08-07 23:40 | NUR ---
NASOJEJUNUM TUBE FLUSHED TO PREVENT CLOGGING. NJ TUBE FEEDING ADMINISTERING WELL. BLOOD GLUCOSE 180, INSULIN COVERAGE ADMINISTERED WITH EDUCATION. PT TOLERATED WELL. IV ACCESS INFILTRATED, REMOVED, CANNULA INTACT. NEW IV ACCESS 22G ON L HAND, PT TOLERATED WELL, SALINE LOCKED. ALL NEEDS MET. SAFETY MEASURES ENSURED. CALL LIGHT WITHIN REACH.
[2017-08-08] VITALS: BP 125/56
--- NOTE | 2017-08-08 04:25 | NUR ---
PT RESTING COMFORTABLY, PT DENIES PAIN OR NAUSEA. NASOJEJUNUM TUBE ADMINISTERING WELL, RESIDUAL 1ML, FLUSHED TO PREVENT CLOGGING. ALL NEEDS MET. SAFETY MEASURES ENSURED. CALL LIGHT WITHIN REACH.
[2017-08-08] MEDS ORDERED: PANTOPRAZOLE 40 MG TABEC PO SCH (06:30)
[2017-08-08 06:57] LABS: ANION GAP 10.3 (8-16); CARBON DIOXIDE 28.3 mmol/L (21-32); CHLORIDE 110 mmol/L (98-107); CREATININE 0.8 mg/dL (0.7-1.3); GLUCOSE 158 mg/dL (74-106); MAGNESIUM 1.6 mg/dL (1.8-2.4); PHOSPHORUS 3.5 mg/dL (2.5-4.9); POTASSIUM 3.6 mmol/L (3.5-5.1); SODIUM SERUM 145 mmol/L (136-145); UREA NITROGEN, BLOOD 10 mg/dL (7-18)
[2017-08-08] MEDS: BLOOD GLUCOSE MONITORING 1 DEV DEV FS SCH (06:58)
[2017-08-08] MEDS: METOCLOPRAMIDE 10 MG TAB PO SCH (06:59)
--- NOTE | 2017-08-08 07:00 | NUR ---
NASOGASTRIC TUBE FEEDING STOPPED AT THIS TIME. PT INSTRUCTED TO BE ON FULL LIQUID DIET FROM 7AM TO 7PM. PT VERBALIZED UNDERSTANDING. ADMINISTERED DUE MEDS WITH EDUCATION. BLOOD GLUCOSE 143, NO INSULIN COVERAGE NEEDED. ALL NEEDS MET. SAFETY MEASURES ENSURED. CALL LIGHT WITHIN REACH.
--- NOTE | 2017-08-08 07:15 | NUR ---
ENDORSED PLAN OF CARE TO AM NURSE. CONDITION STABLE.
--- NOTE | 2017-08-08 07:32 | NUR ---
ENDORSEMENT RECEIVED FROM EDGE SANDER NURSE. PATIENT IS AWAKE, ALERT. RESPIRATION EVEN, UNLABOR ON ROOM AIR. SKIN DRY AND WARM. DENIED PAIN, SOB AT THIS TIME. IV PATENT AND INTACT. BED AT LOW POSITION. CALL LIGHT WITHIN REACH
[2017-08-08 08:00] VITALS: BP 131/55
[2017-08-08] MEDS: AMYLASE/LIPASE/PROTEASE 1 CAPDR PO SCH (08:46)
[2017-08-08] MEDS ORDERED: INSULIN LANTUS 100 UNITS/ML 10 ML VIAL SUBQ SCH (09:00)
[2017-08-08] MEDS ORDERED: LISINOPRIL 5 MG TAB PO SCH (09:00)
[2017-08-08] MEDS: amLODIPine 5 MG TAB PO SCH (09:23)
--- NOTE | 2017-08-08 09:40 | NUR ---
PATIENT TOLERATED FULL LIQUID DIET WELL, DENIED PAIN, NAUSEA AND VOMITING.
--- NOTE | 2017-08-08 09:41 | NUR ---
Social Service Note: Per patient and patient's Monalisa (Korean speaking), they would like for patient to return home with home health services, no snf placement. Both verbalized they have received education on differences between home health services and snf during previous conversation/discussion with director of case management and social services assistant Britta. I explained to them that once a home health company accepts referral, home health company will contact patient and/or patient's family to make visit arrangements. They both verbalized understanding. I informed charge nurse Elaine patient would like to return home, no snf.
[2017-08-08] MEDS ORDERED: METO10TA98 PO (10:38)
[2017-08-08] MEDS ORDERED: DOCU1TAB PO (10:38)
[2017-08-08] MEDS ORDERED: LISI-424 PO (10:38)
--- NOTE | 2017-08-08 11:39 | NUR ---
DISCHARGE INSTRUCTION AND PRESCRIPTION WERE GIVEN TO THE PATIENT. PATIENT VERBALIZED UNDERSTANDING. IV WAS REMOVED, CATHETER TIP INTACT, NO ACTIVE BLEEDING SEEN. PATIENT TOLERATED WELL. IV BAND WAS REMOVED. NJ TUBE WAS REMOVED PER ORDER, TIP INTACT, PATIENT TOLERATED WELL. PATIENT REFUSED PNEUMO VAC. ALL BELONGINGS WERE TAKEN WITH THE PATIENT AND FAMILY. PATIENT IS STABLE AT THIS TIME
--- NOTE | 2017-08-10 10:33 | NUR ---
PATIENT WAS DISCHARGED ON 08/08/17 WITHOUT THE NJ. I CALLED ALIYAH FROM [facility], AND INFORMED HER THAT THE PATIENT WAS DISCHARGED WITHOUT THE NJ. I REMINDED HER THAT AN APPOINTMENT WAS MADE FOR HIM FOR FOLLOW UP WITH DR. ALVA FOR Thursday08/14/17 AT 8:30A.M AT HIS OFFICE. I ASKED HER IF I NEEDED TO DO ANYTHING ELSE FOR THIS PATIENT FOR FOLLOW UP. SHE SAID SHE WOULD HANDLE THE FOLLOW UP WITH DR. MAI. SHE ASKED ME TO SEND HER THE DISCHARGE SUMMARY TO HER. I FAXED THE DISCHARGE SUMMARY , LAST PROGRESS NOTE AND PRESCRIPTION HER WAS SEND HOME WITH HIM TO [phone]. I ALSO INFORMED HER THAT THE NJ TUBE WAS REMOVED PRIOR TO DISCHARGE. ALIYAH, PHONE [phone].
== END 2017-08-08 11:45 | disposition home health service (06) | DRG 439 ==
LOC: MED 16:08 → MTU 19:33
PROVIDERS: ADMIT Hospitalist; ATTEND Hospitalist
PROC: 0DB68ZX Excision of Stomach, Via Natural or Artificial Opening Endoscopic, Diagnostic (ICD-10-PCS; principal; 2017-08-05 10:00)
PROC: 0DH97UZ Insertion of Feeding Device into Duodenum, Via Natural or Artificial Opening (ICD-10-PCS; 2017-08-05 10:00)
DX: K85.3 Drug induced acute pancreatitis (principal); E87.0 Hyperosmolality and hypernatremia; E44.0 Moderate protein-calorie malnutrition; D64.9 Anemia, unspecified; E11.9 Type 2 diabetes mellitus without complications; D50.9 Iron deficiency anemia, unspecified; I10 Essential (primary) hypertension; T38.3X5A Adverse effect of insulin and oral hypoglycemic [antidiabetic] drugs, initial encounter; K21.9 Gastro-esophageal reflux disease without esophagitis; K86.1 Other chronic pancreatitis; F10.11 Alcohol abuse, in remission; K59.00 Constipation, unspecified; K29.70 Gastritis, unspecified, without bleeding; Z85.46 Personal history of malignant neoplasm of prostate; Z92.21 Personal history of antineoplastic chemotherapy; Z92.3 Personal history of irradiation; Z79.84 Long term (current) use of oral hypoglycemic drugs; Z68.25 Body mass index [BMI] 25.0-25.9, adult; Y92.89 Other specified places as the place of occurrence of the external cause
CPT/HCPCS: 36415; 71045; 74018; 80048; 80053; 81003; 82150; 82550; 82553; 82948; 83605; 83690; 83735; 83874; 83880; 84100; 84484; 85025; 85610; 85730; 86140; 86677; 87040; 87081; 87086; 93005; 96361; 96374; 96375; 97110; 97116; 97140; 97530; 99285; C9113; J1170; J1200; J1644; J1815; J1940; J2250; J2270; J2354; J3010; J3475; J3480; J7030; J7120; J7613; J8597; Q0092

== ENCOUNTER 2019-06-02 17:08 | Emergency (ER) | payer OTHER ==
[~2019-06-02] VITALS: Ht 157.5 cm; Wt 51.7 kg
[~2019-06-02 17:08] MED LIST changes: -AMOX-999 PO; -LEVO750T2 PO; +LISI-424 PO; -METF1000 PO; +METO10TA98 PO; +SENN-197 PO; -SIMV20TA1 PO
[2019-06-02 17:15] VITALS: BP 148/74
--- NOTE | 2019-06-02 17:25 | NUR ---
PT AMBULATED TO BED 4
--- NOTE | 2019-06-02 17:31 | NUR ---
Dr. Barney is evaluating the patient at bedside.
--- NOTE | 2019-06-02 17:32 | NUR ---
Heather lebron in ED - 06/02/19 at [address] CAMACHO EVALUATING PT AT BEDSIDE
--- NOTE | 2019-06-02 17:32 | NUR ---
PT BIB FAMILY C/O BODY ACHES, PRODUCTIVE COUGH SINCE LAST NIGHT. PT IS AFEBRILE AT THIS TIME BUT REPORTS HAD CHILLS AT HOME. O2 SATURATION AT 95% ON 2 L OXYGEN VIA NASAL CANNULA. PT HAS SMOKING HX FOR 54 YEARS AND QUIT SMOKE 5 YEARS. FAMILY DENIES COPD HX. LUNGS AUSCULTATED CRACKLES BILATRAL. PATIENT STATES PAIN OF 8/10 WHILE COUGHING; VSS; PATIENT POSITIONED FOR COMFORT; HOB ELEVATED; BEDRAILS UP X1; BED DOWN. ER MD MADE AWARE OF PT STATUS.
[2019-06-02] MEDS ORDERED: LEVOFLOXACIN 750 MG/D5W PREMIX 150 ML IV ONE (17:35)
[2019-06-02] MEDS ORDERED: cefTRIAXone 1,000 MG VIAL ONE (17:51)
--- NOTE | 2019-06-02 18:10 | NUR ---
ABG COMPLETED PRESSURE APPLIED AT PUNCTURE SITE NO EVIDENC OF HEMATOMA
[2019-06-02 18:14] LABS: BASOPHILS % (AUTO) 0.3 % (0.0-2.0); EOSINOPHILS # (AUTO) 0.3 K/uL (0-0.4); EOSINOPHILS % (AUTO) 4.8 % (0.0-4.0); HEMOGLOBIN 12.6 g/dL (12.0-18.0); LYMPHOCYTES # (AUTO) 0.7 K/uL (2.0-11.5); LYMPHOCYTES % (AUTO) 13.1 % (20.5-51.1); MEAN CORPUSCULAR HEMOGLOBIN 29 pg (27-31); MEAN CORPUSCULAR HGB CONC 32 g/dL (33-37); MEAN CORPUSCULAR VOLUME 90.2 fL (80-94); MONOCYTES # (AUTO) 0.3 K/uL (0.8-1.0); MONOCYTES % (AUTO) 5.3 % (1.7-9.3); NEUTROPHILS # (AUTO) 4.1 K/uL (1.8-7.7); NEUTROPHILS % (AUTO) 76.5 % (42.2-75.2); PLATELET COUNT (AUTO) 148 K/uL (140-450); RED BLOOD CELL COUNT(AUTO) 4.32 MIL/uL (4.20-6.10); WHITE BLOOD COUNT (AUTO) 5.4 K/uL (4.8-10.8)
--- NOTE | 2019-06-02 18:15 | NUR ---
PT HAS FEVER 101.8. DR. CAMACHO NOTIFIED. WILL CONTINUE MONITOR PT'S VITAL SIGNS.
--- NOTE | 2019-06-02 18:18 | NUR ---
REVIEWED ABG SAMPLE REPORT WITH DR. FRANCHESCA CAMACHO NO NEW ORDERS
[2019-06-02] MEDS ORDERED: ACETAMINOPHEN EXTRA STRENGTH 500 MG TAB PO ONE (18:20)
[2019-06-02] MEDS ORDERED: ASPI-1718 PO (18:29)
[2019-06-02] MEDS ORDERED: LISI10TA11 PO (18:31)
[2019-06-02] MEDS ORDERED: SIMV10TA1 PO (18:32)
[2019-06-02] MEDS ORDERED: AMLO10TA PO (18:33)
[2019-06-02] MEDS ORDERED: GLIP10TA3 PO (18:35)
[2019-06-02] MEDS ORDERED: METF500T2 PO (18:38)
[2019-06-02] MEDS ORDERED: FAMO10TA93 PO (18:38)
[2019-06-02 18:48] LABS: CARBON DIOXIDE 26.1 mmol/L (21-32); CHLORIDE 101 mmol/L (98-107); GLUCOSE 176 mg/dL (74-106); POTASSIUM 5.1 mmol/L (3.5-5.1); SODIUM SERUM 141 mmol/L (136-145); UREA NITROGEN, BLOOD 20 mg/dL (7-18)
[2019-06-02] MEDS ORDERED: NACL 0.9% 1,600 ML IV ONE (18:50)
[2019-06-02 18:53] LABS: ALBUMIN 3.8 g/dL (3.4-5.0); ASPARTATE AMINOTRANSFERASE 46 U/L (15-37); TOTAL BILIRUBIN 0.3 mg/dL (0.0-1.0)
--- NOTE | 2019-06-02 18:57 | NUR ---
PT HAS FEVER 102.[address] CAMACHO NOTIFIED AND WILL CONTINUE MONITOR PT'S VITAL SIGNS.
[2019-06-02 19:06] LABS: APPEARANCE,URINE CLEAR (CLEAR); BILIRUBIN,URINE NEGATIVE (NEGATIVE); BLOOD, URINE NEGATIVE (NEGATIVE); COLOR,URINE YELLOW (YELLOW); LEUKOCYTE ESTERASE ,URINE NEGATIVE (NEGATIVE); NITRITE, URINE NEGATIVE (NEGATIVE); PH,URINE 7.5 (5.0-9.0); UGLUCOSE NEGATIVE (NEGATIVE)
--- NOTE | 2019-06-02 19:13 | NUR ---
Pt report given to YARIEL Ricci. Transfer of care at this time.
--- NOTE | 2019-06-02 19:13 | NUR ---
RECEIVED REPORT FROM YARIEL JEAN-BAPTISTE.
[2019-06-02] MEDS ORDERED: IBUPROFEN 600 MG TAB PO ONE (19:15)
--- NOTE | 2019-06-02 20:49 | NUR ---
PATIENT IS QUIETLY SITTING AT THIS TIME.
--- NOTE | 2019-06-02 21:30 | NUR ---
LAB AT BEDSIDE.
--- NOTE | 2019-06-02 22:13 | NUR ---
VSS. PATIENT STATES HIS PAIN IS AT A 4/10 AT THIS TIME. WILL CONTINUE TO MONITOR.
--- NOTE | 2019-06-02 22:50 | NUR ---
REPORT GIVEN RO DENISE HUBBARD RN AT [facility].
[2019-06-02 23:25] VITALS: BP 109/50
--- NOTE | 2019-06-02 23:25 | NUR ---
Patient to be transferred to [facility]. Is being transferred due to higher level of care. Receiving facility has accepting physician and available space. ER physician has signed transfer form. Patient or responsible green party has agreed to transfer and signed form. Patient belongings inventoried and will be sent with patient. Copy of nursing notes, lab reports, EKG, Physicians Orders and X-rays to be sent with patient. [facility] ambulance service here for transfer.
== END 2019-06-02 23:25 | disposition short-term general hospital (02) ==
LOC: MED 17:08
DX: J96.90 Respiratory failure, unspecified, unspecified whether with hypoxia or hypercapnia (principal); J20.9 Acute bronchitis, unspecified; E11.9 Type 2 diabetes mellitus without complications; I10 Essential (primary) hypertension; E78.5 Hyperlipidemia, unspecified; Z79.899 Other long term (current) drug therapy; Z79.84 Long term (current) use of oral hypoglycemic drugs; Z79.82 Long term (current) use of aspirin; Z90.49 Acquired absence of other specified parts of digestive tract; Z87.891 Personal history of nicotine dependence
CPT/HCPCS: 36415; 36600; 71045; 80053; 81003; 82803; 83605; 85025; 87040; 87086; 93005; 96365; 96366; 96367; 99285; J0696; J1956; 96361